=== PATIENT | female | born 1985 | race Caucasian/White ===

== ENCOUNTER 2016-08-23 00:09 | Outpatient (CLI) | payer BC ==
[2016-08-23] MEDS ORDERED: HYDROXYZINE PAMOATE 50 MG CAPSULE ONE (01:41)
[2016-08-23] MEDS ORDERED: HYDROXYZINE PAMOATE 50 MG CAPSULE PO ONE (01:41)
[2016-08-23 01:46] LABS: AMORPHOUS SEDIMENT,URINE TRACE /HPF; APPEARANCE,URINE SLIGHTLY-CLOUDY; BILIRUBIN,URINE NEGATIVE (NEGATIVE); GLUCOSE, URINE NEGATIVE (NEGATIVE); KETONES,URINE NEGATIVE (NEGATIVE); LEUKOCYTE ESTERASE,URINE NEGATIVE (NEGATIVE); NITRITE,URINE NEGATIVE (NEGATIVE); PROTEIN,URINE NEGATIVE (NEGATIVE); URINE SPECIFIC GRAVITY 1.009; UROBILINOGEN,URINE NEGATIVE mg/dL (<2.0)
--- NOTE | 2016-08-23 02:21 | Non Stress Test Report ---
Non Stress Test Datetime Report Generated by CPN: 08/23/2016 02:21 DEMOGRAPHIC EGA NST: 37.6 INDICATION Indication for Study: Ordered by Provider VITAL SIGNS Temperature - NST: 97.9 Pulse - NST: 78 RESP - NST: 14 NBPSYS NST: 96 NBPDIA NST: 54 MONITORING Monitor Explained: Monitor Explained; Test Explained; Patient Verbalized Understanding Time on Monitor: 08/23/2016 00:23 Time off Monitor: 08/23/2016 01:38 NST Duration: 75 NST INTERVENTIONS NST Interventions: PO Hydration Physician Notified NST: Dr Will BABY A: [id number] BABY A Movement : Present Contraction Frequency : irreg FHR Baseline : 135 Accelerations : 15X15 Decelerations : None Variability : Moderate 6-25bpm NST Review: Meets Criteria for Reactive NST NST Review and Verified By : Donald Soliz RN NST Results: Reactive NST REPORT Report Trigger: Send Report
[2016-08-23 03:39] LABS: URINE BARBITURATES SCREEN NEGATIVE; URINE METHADONE SCREEN NEGATIVE; URINE PHENCYCLIDINE SCREEN NEGATIVE
--- NOTE | 2016-08-23 04:47 | L&D General Admission ---
General Admit Datetime Report Generated by CPN: 08/23/2016 04:45 INFORMATION Patient Age: 30 (07/11/2016 04:45:QS system process) EDC: 09/07/2016 00:00 (07/11/2016 04:49:Mahogany Valerio RN) : 2 (07/11/2016 04:49:Yarely Martinez RN) Para: 1 (08/23/2016 02:19:Vidhi Hoover RN) Para: 1 (07/11/2016 17:04:Alyse Brar RN) Para: 1 (07/11/2016 04:49:Yarely Martinez RN) Term: 1 (07/11/2016 04:49:Yarely Martinez RN) : 0 (07/11/2016 04:49:Yarely Martinez RN) Spontaneous Abortions: 0 (07/11/2016 04:49:Yarely Martinez RN) Induced Abortions: 0 (07/11/2016 04:49:Yarely Martinez RN) Livin (07/11/2016 04:49:Yarely Martinez RN) Baby, Number in Womb: 1 (08/23/2016 02:19:Vidhi Hoover RN) Baby, Number in Womb: 1 (07/11/2016 17:04:Alyse Brar RN) CARE Primary Global Engineering [facility] (07/11/2016 04:49:Annel Chambers RN) Month of 1st Visit: 01/2016 (07/11/2016 04:49:Annel Chambers RN) Adequate Care: No (07/11/2016 04:49:Annel Chambers RN) Height (in): 65 (07/11/2016 06:06:QS system process) ALLERGIES Medication Allergy: Yes (07/11/2016 04:49:Yarely Martinez RN) Medication Allergies: morphine/CO/Pruritis (07/11/2016) (07/11/2016 06:05:QS system process) Medication Allergies: morphine-rash (07/11/2016 04:49:Yarely Martinez RN) Latex Allergy: No Latex Allergies (07/11/2016 04:49:Yarely Martinez RN) Food Allergies: None (07/11/2016 04:49:Alyse Brar RN) Environmental Allergies: None (07/11/2016 04:49:Alyse Brar RN) COMMUNICATION Primary Language: Ugandan (07/11/2016 04:49:Annel Chambers RN) Medical Tx Preferred Language: Ugandan (07/11/2016 04:49:Yarely Martinez RN) Ugandan Communication Ability: Speaks Ugandan; Reads Ugandan (07/11/2016 04:49:Yarely Martinez RN) DEMOGRAPHICS Address: [address] [place] [id number] (07/11/2016 04:46:QS system process) Address: [address] [place] [id number] (07/11/2016 04:45:QS system process) Zipcode: [address] (07/11/2016 04:46:QS system process) Zipcode: [address] (07/11/2016 04:45:QS system process) Home (07/11/2016 04:45:QS system process) Work (07/11/2016 04:45:QS system process) SSN: [id number] (07/11/2016 04:45:QS system process) Next of Kin Name: JAMI GO (07/11/2016 04:45:QS system process) Next of Kin (07/11/2016 04:45:QS system process) Next of Kin Relationship: SPO (07/11/2016 04:45:QS system process) Date of : 1985 (07/11/2016 04:45:QS system process) Marital Status: (07/11/2016 04:45:QS system process) Sex: Female (07/11/2016 04:45:QS system process) 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 [id number] (07/11/2016 04:49:Alyse Brar RN) Marijuana: No (07/11/2016 04:49:Alyse Brar RN) Cocaine: No (07/11/2016 04:49:Alyse Brar RN) Other Illicit Drugs: No (07/11/2016 04:49:Alyse Brar RN) VACCINE HISTORY Influenza Vaccine: Yes (07/11/2016 04:49:Annel Chambers RN) Influenza Date: 06/18/2016 (07/11/2016 04:49:Annel Chambers RN) Pneumococcal Vaccine: No (07/11/2016 04:49:Alyse Brar RN) Tetanus Vaccine: Yes (07/11/2016 04:49:Annel Chambers RN) Tetanus Date: 06/18/2016 (07/11/2016 04:49:Annel Chambers RN) Tdap Vaccine: No (07/11/2016 04:49:Alyse Brar RN) Hepatitis B Vaccine: Yes (07/11/2016 04:49:Alyse Brar RN) Feeding Preference: Formula (07/11/2016 04:49:Alyse Brar RN) Benefit of Breast Feed Discussed: N/A (07/11/2016 04:49:Alyse Brar RN) Tubal Ligation: No (07/11/2016 04:49:Alyse Brar RN) Tubal Authorization Signed: N/A (07/11/2016 04:49:Alyse Brar RN) Consent: N/A (07/11/2016 04:49:Alyse Brar RN) Consent Signed: N/A (07/11/2016 04:49:Alyse Brar RN) Plans for Labor and Delivery: Other, Specify (07/11/2016 04:49:Alyse Brar RN) Other Labor and Delivery Plans: 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 (07/11/2016 04:49:Alyse Brar RN) Support Person: Jami Go (07/11/2016 04:49:Alyse Brar RN) Support Person Relationship: (07/11/2016 04:49:Alyse Brar RN) Cultural/Spritual Practice: No (07/11/2016 04:49:Alyse Brar RN) LIVING SITUATION/DISCHARGE PLAN Living Arrangements: House (07/11/2016 04:49:Alyse Brar RN) Adequate Access to:: Electric; Heat; Refrigeration; Plumbing/Running water; Phone; Transportation (07/11/2016 04:49:Alyse Brar RN) WIC Program: No (07/11/2016 04:49:Alyse Brar RN) Discharge Veterinary Laboratory Diagnostician Person: Jami Go (07/11/2016 04:49:Alyse Brar RN) Person to Help after Discharge: Jami Go (07/11/2016 04:49:Alyse Brar RN) Currently Using Commun Resources: No (07/11/2016 04:49:Alyse Brar RN) Outside Agency/Chainstitch Sewing Machine Operator: No (07/11/2016 04:49:Alyse Brar RN) Car Seat for Discharge: Yes (07/11/2016 04:49:Alyse Brar RN) Adoption Requested: No (07/11/2016 04:49:Alyse Brar RN) Pt Contact w/ Post : N/A (07/11/2016 04:49:Alyse Brar RN) LABS Blood Type: O Negative (07/11/2016 04:49:Annel Chambers RN) Rho(G) this : Yes (07/11/2016 04:49:Annel Chambers RN) Date Rho(G) Given: 06/18/2016 (07/11/2016 04:49:Annel Chambers RN) Hemoglobin: 8.7 L (07/11/2016 06:10:QS system process) Hematocrit: 25.9 L (07/11/2016 06:10:QS system process) MCV: 83 (07/11/2016 06:10:QS system process) Group Beta Strep: neg (07/11/2016 04:49:Christiano Soliz RN) Gonorrhea: Negative (07/11/2016 04:49:Annel Chambers RN) Chlamydia: Negative (07/11/2016 04:49:Annel Cahmbers RN) RPR/VDRL: Nonreactive (07/11/2016 04:49:Annel Chambers RN) HIV Exposure Test: Negative (07/11/2016 04:49:Annel Chambers RN) Hepatitis B: Negative (07/11/2016 04:49:Annel Chambers RN) Rubella: Immune (07/11/2016 04:49:Annel Chambers RN) OB/PREVIOUS HISTORY Previous Procedures: Ultrasound (07/11/2016 04:49:Alyse Brar RN) Current Procedures: Ultrasound (07/11/2016 04:49:Alyse Brar RN) History of Previous : No (07/11/2016 04:49:Alyse Brar RN) History of Gestational Diabetes: No (07/11/2016 04:49:Alyse Brar RN) History of PIH: No (07/11/2016 04:49:Alyse Brar RN) History of Incompetent Cervix: No (07/11/2016 04:49:Alyse Brar RN) History of Placenta Previa/Abrup: No (07/11/2016 04:49:Alyse Brar RN) History of Macrosomia: No (07/11/2016 04:49:Alyse Brar RN) History of IUGR: No (07/11/2016 04:49:Alyse Brar RN) History of Hemorrhage: No (07/11/2016 04:49:Alyse Brar RN) History of Loss/Stillborn: No (07/11/2016 04:49:Alyse Brar RN) History of : No (07/11/2016 04:49:Alyse Brar RN) History of D (Rh) Sensitization: No (07/11/2016 04:49:Alyse Brar RN) History Recurrent Loss/Stillborn: No (07/11/2016 04:49:Alyse Brar RN) History Depression/PP Depression: No (07/11/2016 04:49:Alyse Brar RN) History of Uterine Anomaly/TANNER: No (07/11/2016 04:49:Alyse Brar RN) History of Infertility: No (07/11/2016 04:49:Alyse Brar RN) History of ART Treatment: No (07/11/2016 04:49:Alyse Brar RN) History of TANNER: No (07/11/2016 04:49:Alyse Brar RN) Comments Obstetrical History: G1 - 11/24/10 G2 - current - failed 1 hr gtt (07/11/2016 04:49:Annel Chambers RN) MEDICAL HISTORY Med Hx Diabetes: No (07/11/2016 04:49:Alyse Brar RN) Med Hx Hypertension: No (07/11/2016 04:49:Alyse Brar RN) Med Hx Heart Disease: No (07/11/2016 04:49:Alyse Brar RN) Med Hx Autoimmune Disorder: No (07/11/2016 04:49:Alyse Brar RN) Med Hx Kidney Disease/UTI: No (07/11/2016 04:49:Alyse Brar RN) Med Hx Neurologic/Epilepsy: No (07/11/2016 04:49:Alyse Brar RN) Med Hx Psychiatric Disorders: No (07/11/2016 04:49:Alyse Brar RN) Med Hx Hepatitis/Liver Disease: No (07/11/2016 04:49:Alyse Brar RN) Med Hx Varicosities/Phlebitis: No (07/11/2016 04:49:Alyse Brar RN) Med Hx Thyroid Dysfunction: No (07/11/2016 04:49:Alyse Brar RN) Med Hx Trauma/Violence: No (07/11/2016 04:49:Alyse Brar RN) Med Hx Blood Transfusion: No (07/11/2016 04:49:Alyse Brar RN) Med Hx Pulmonary (Asthma,TB): No (07/11/2016 04:49:Alyse Brar RN) Med Hx Breast: No (07/11/2016 04:49:Alyse Brar RN) Med Hx SENIOR DEVOPS ENGINEER Surgery: No (07/11/2016 04:49:Alyse Brar RN) Med Hx Hospitalization/Surgery: Yes (07/11/2016 04:49:Alyse Brar RN) Med Hx Anesthetic Complications: No (07/11/2016 04:49:Alyse Brar RN) Med Hx Abnormal Pap Smear: No (07/11/2016 04:49:Alyse Brar RN) Other Medical Diseases: Yes (07/11/2016 04:49:Alyse Brar RN) Med Hx Significant Family Hx: No (07/11/2016 04:49:Alyse Brar RN) Details of Med/Surg Hx: Hx of Prolactinoma - unable to breastfeed Hospitalized for childbirth (07/11/2016 04:49:Alyse Brar RN) INFECTIOUS HISTORY Inf Hx Gonorrhea: No (07/11/2016 04:49:Alyse Brar RN) Inf Hx Chlamydia: No (07/11/2016 04:49:Alyse Brar RN) Inf Hx Syphilis: No (07/11/2016 04:49:Alyse Brar RN) Inf Hx HIV/AIDS: No (07/11/2016 04:49:Alyse Brar RN) Inf Hx Human Papilloma Virus: No (07/11/2016 04:49:Alyse Brar RN) Inf Hx Pt/Partner Genital Herpes: No (07/11/2016 04:49:Alyse Brar RN) Inf Hx Tuberculosis/Exposure: No (07/11/2016 04:49:Alyse Brar RN) Inf Hx Hepatitis B,C: No (07/11/2016 04:49:Alyse Brar RN) Inf Hx Rash or Viral Illness: No (07/11/2016 04:49:Alyse Brar RN) GENETIC HISTORY Gen Hx Age >=35 at PRIMITIVO: No (07/11/2016 04:49:Alyse Brar RN) Gen Hx Thalassemia: No (07/11/2016 04:49:Alyse Brar RN) Gen Hx Congenital Heart Defect: No (07/11/2016 04:49:Alyse Brar RN) Gen Hx Neural Tube Defect: No (07/11/2016 04:49:Alyse Brar RN) Gen Hx Down's Syndrome: No (07/11/2016 04:49:Alyse Brar RN) Gen Hx Ricardo-Sachs: No (07/11/2016 04:49:Alyse Brar RN) Gen Hx Adia: No (07/11/2016 04:49:Alyse Brar RN) Gen Hx Familial Dysautonomia: No (07/11/2016 04:49:Alyse Brar RN) Gen Hx Sickle Cell Disease/Trait: No (07/11/2016 04:49:Alyse Brar RN) Gen Hx Hemophilia/Blood Disorder: No (07/11/2016 04:49:Alyse Brar RN) Gen Hx Muscular Dystrophy: No (07/11/2016 04:49:Alyse Brar RN) Gen Hx Cystic Fibrosis: No (07/11/2016 04:49:Alyse Brar RN) Gen Hx Huntingtons Chorea: No (07/11/2016 04:49:Alyse Brar RN) Gen Hx Mental Retardation/Autism: No (07/11/2016 04:49:Alyse Brar RN) Gen Hx Tested for Fragile X: No (07/11/2016 04:49:Alyse Brar RN) Gen Hx Other Inher/Chromosomal: No (07/11/2016 04:49:Alyse Brar RN) Gen Hx Maternal Metabolic DO: No (07/11/2016 04:49:Alyse Brar RN) Gen Hx Pt Father or FOB Defect: No (07/11/2016 04:49:Alyse Brar RN) Gen Hx Other Genetic History: No (07/11/2016 04:49:Alyse Brar RN) Gen Hx Drugs/Meds since LMP: No (07/11/2016 04:49:Alyse Brar RN)
--- NOTE | 2016-08-23 04:47 | L&D Discharge Summary ---
OB Discharge Summary Datetime Report Generated by CPN: 08/23/2016 04:45 DISCHARGE DIAGNOSIS Diagnosis/Symptoms: False Labor Gestation: 37.5 Number of Babies in Womb: 1 Parity: 1 DIET/ACTIVITY/RESTRICTIONS Diet: Regular Diet Restrictions: Clear liquid diet, advance as tolerated Activity: Normal Activity Activity Restrictions: No Exercising; Minimize Walking TEACHING/INSTRUCTIONS/REFERRALS Instructions Given To: pt Instructions Understood: Patient Verbalized Understanding Referrals: None Educational Materials- Other: Kick Counts Dehydration DISCHARGE INFORMATION Discharged AMA: No Physician Notified of Disch AMA: Dr Will Discharge Date/Time: 08/23/2016 02:00 Discharged To: Home Discharge Provider Name: Dr Will Accompanied By: Discharge Method: Ambulatory Condition: Stable FOLLOW UP INFORMATION Follow Up With: [facility] Follow Up On: As Scheduled Follow Up Phone Number: [facility] -
--- NOTE | 2016-08-23 04:47 | L&D Admission Assessment ---
LD ADM ASMT Datetime Report Generated by CPN: 08/23/2016 04:45 PATIENT ASSESSMENT Assessment Type: Admission Assessment (08/23/2016 00:28:Vidhi Ledgerwood, RN) WEIGHT Weight (lb): 187 (08/23/2016 00:53:QS system process) Weight (kg): 85.0 (08/23/2016 00:53:QS system process) BMI: 31.1 (08/23/2016 00:53:QS system process) PAIN Pain Scale: 2 (08/23/2016 00:28:Vidhi Ledgerwood, RN) Pain Presence: Intermittent (08/23/2016 00:28:Vidhi Ledgerwood, RN) Pain Type: Contraction (08/23/2016 00:28:Vidhi Ledgerwood, RN) Pain Location: Abdomen (08/23/2016 00:28:Vidhi Ledgerwood, RN) Pain Related to Contraction: Unsure (08/23/2016 00:28:Vidhi Ledgerwood, RN) CONTRACTIONS Frequency (min): irr (08/23/2016 01:20:Vidhi Ledgerwood, RN) Frequency (min): none (08/23/2016 00:50:Vidhi Ledgerwood, RN) Duration (sec): 60-90 (08/23/2016 01:20:Vidhi Ledgerwood, RN) Quality: Mild (08/23/2016 01:20:Vidhi Ledgerwood, RN) Pattern: Normal: <= 5 Contractions in 10 Minutes (08/23/2016 01:20:Vidhi Ledgerwood, RN) Resting Tone [place]: Relaxed (08/23/2016 01:20:Vidhi Hoover RN) Resting Tone [place]: Relaxed (08/23/2016 00:50:Vidhi Hoover RN) Contraction Comments: occasional contraction with uteral irritability (08/23/2016 01:20:Vidhi Hoover RN) Contraction Comments: pt's abdomen feels soft upon palpation during of pt's feeling of contractions. (08/23/2016 00:50:Vidhi Hoover RN) VAGINAL EXAM Dilatation (cm): 0.5 (08/23/2016 00:24:Vidhi Hoover RN) NEURO Level of Consciousness: Fully Conscious (08/23/2016 00:28:Vidhi Hoover RN) DTR's/Clonus: DTRs 2+; No Clonus (08/23/2016 00:28:Vidhi Hoover RN) Headache: Denies (08/23/2016 00:28:Vidhi Hoover RN) Dizziness: No (08/23/2016 00:28:Vidhi Hoover RN) Blurred Vision: No (08/23/2016 00:28:Vidhi Ledgerwood, RN) Extremity Numbness/Tingling : None (08/23/2016 00:28:Vidhi Ledgerwood, RN) Extremity Movement: Full Range of Motion (08/23/2016 00:28:Vidhi Ledgerwood, RN) CARDIOVASCULAR Nailbeds: [place] (08/23/2016 00:28:Vidhi Ledgerwood, RN) Capillary Refill: Less than 3 Seconds (08/23/2016 00:28:Vidhi Ledgerwood, RN) Facial Edema: None (08/23/2016 00:28:Vidhi Ledgerwood, RN) Zoltan's Sign Left Leg: Negative (08/23/2016 00:28:Vidhi Ledgerwood, RN) Zoltan's Sign Right Leg: Negative (08/23/2016 00:28:Vidhi Ledgerwood, RN) RESPIRATORY Respiratory Effort: Unlabored; Regular Rhythm; Equal Expansion (08/23/2016 00:28:Vidhibrannon Mcarthurgerwood, RN) Breath Sounds, Left: Clear and Equal (08/23/2016 00:28:Vidhi Hoover RN) Breath Sounds, Right: Clear and Equal (08/23/2016 00:28:Vidhi Hoover RN) Cough Productivity: None (08/23/2016 00:28:Vidhi Hoover RN) GASTROINTESTINAL Nausea/Vomiting: Denies (08/23/2016 00:28:Vidhi Hoover RN) Bowel Sounds: Normoactive; All Quadrants (08/23/2016 00:28:Vidhi Hoover RN) RUQ Epigastric Pain: Denies (08/23/2016 00:28:Vidhi Hoovre RN) Bowel Patterns: Soft, Formed Stool (08/23/2016 00:28:Vidhi Hoover RN) Hemorrhoids: None (08/23/2016 00:28:Vidhi Hoover RN) Diet Type: Regular diet (08/23/2016 00:28:Vidhi Hoover RN) Last Meal: 08/22/2016 19:00 (08/23/2016 00:28:Vidhi Hoover RN) GENITOURINARY Bladder: Nondistended (08/23/2016 00:28:Vidhi Ledgerwood, RN) Frequency of Urination: No (08/23/2016 00:28:Vidhi Ledgerwood, RN) Urination Burning: No (08/23/2016 00:28:[place], RN) CVA Tenderness: No (08/23/2016 00:28:[place], RN) Vaginal Bleeding: None (08/23/2016 00:28:[facility] Vaginal Discharge Color: N/A (08/23/2016 00:28:Vidhi Ledgerwood, RN) INTEGUMENTARY Skin Color: Normal for Race (08/23/2016 00:28:Vidhi Ledgerwood, ) Skin Temperature: [facility]23[facility]2016 [facility] Skin Moisture: Dry (08/23/2016 00:28:[facility]) TIFFANY SKIN ASSESSMENT Tiffany Scale Sensory Perception: No Impairment- Responds to verbal commands. Has no sensory deficit which would limit ability to feel or voice pain or discomfort (08/23/2016 00:28:Vidhi Hoover RN) Tiffany Scale Moisture: Rarely Moist- Skin is usually dry. Linen only requires changing at routine intervals (08/23/2016 00:28:Vidhi Hoover RN) Tiffany Scale Activity: Walks Frequently- Walks outside the room at least twice a day and inside room at least every 2 hours during the day. (08/23/2016 00:28:Vidhi Hoover RN) Tiffany Scale Mobility: No Limitations- Makes major and frequent changes in position without assistance (08/23/2016 00:28:Vidhi Hoover RN) Tiffany Scale Nutrition: Excellent- Eats most of every meal. Never refuses a meal. Usually eats a total of 4 or more servings of meat and dairy products. Occasionally eats between meals. Does not require supplementation (08/23/2016 00:28:Vidhi Hoover RN) Tiffany Scale Friction and Shear: No Apparent Problem- Moves in bed and in chair independently and has sufficient muscle strength to lift up completely during move. Maintains good position in bed or chair at all times (08/23/2016 00:28:Vidhi Hoover RN) Tiffany Scale Total: 23 (08/23/2016 00:28:QS system process) Tiffany Scale Risk: No Risk of Pressure Ulcer Noted at this Time (08/23/2016 00:28:QS system process) SUPPORT Family Support: Significant Other supportive, at bedside frequently (08/23/2016 00:28:Vidhi Hoover RN) Emotional State: Calm/Relaxed (08/23/2016 00:28:Vidhi Hoover RN) SAFETY [place] Within Reach: Yes (08/23/2016 00:28:Vidhi Hoover RN) Side Rails Up: Yes (08/23/2016 00:28:Vidhi Hoover RN) Bed Wheels Locked: Yes (08/23/2016 00:28:Vidhi Hoover RN) Arm Bands Present: Yes (08/23/2016 00:28:Vidhi Hoover RN) FALL SCREEN Fall Risk History of Falling: (0) No (08/23/2016 00:28:Vidhi Hoover RN) Fall Risk Secondary Diagnosis: (0) No (08/23/2016 00:28:Vidhi Hoover RN) Fall Risk Ambulatory Aid: (0) None/Bedrest/Wheelchair/Nurse Assist (08/23/2016 00:28:Vidhi Hoover RN) Fall Risk IV Therapy: (0) No (08/23/2016 00:28:Vidhi Hoover RN) Fall Risk Gait: (0) Normal/Bedrest/Immobile (08/23/2016 00:28:Vidhi Hoover RN) Fall Risk Mental Status: (0) Oriented to Own Ability (08/23/2016 00:28:Vidhi Hoover RN) Fall Risk Score: 0 (08/23/2016 00:28:QS system process) Fall Risk Score Definition: No Risk: No action required (08/23/2016 00:28:QS system process) RECENT TRAVEL/INFECTIOUS DISEASE Pt/Family Education: Handwashing Hygiene (08/23/2016 00:28:Vidhi Hoover RN) BABY A FHR Baseline Rate (bpm) Baby A: 135 (08/23/2016 01:20:Vidhi Hoover RN) FHR Baseline Rate (bpm) Baby A: 135 (08/23/2016 00:50:Vidhi Hoover RN) Variability Baby A: Moderate 6-25 bpm (08/23/2016 01:20:Vidhi Hoover RN) Variability Baby A: Moderate 6-25 bpm (08/23/2016 00:50:Vidhi Hoover RN) Accelerations Baby A: 15X15 (08/23/2016 01:20:Vidhi Hoover RN) Accelerations Baby A: 15X15 (08/23/2016 00:50:Vidhi Hoover RN) Decelerations Baby A: None (08/23/2016 01:20:Vidhi Hoover RN) Decelerations Baby A: None (08/23/2016 00:50:Vidhi Hoover RN) ADDITIONAL COMMENTS Assessment Flag: Admission Assessment (08/23/2016 00:28:QS system process)
--- NOTE | 2016-08-23 04:47 | L&D Current Admission ---
Current Admit Datetime Report Generated by CPN: 08/23/2016 04:45 ADMISSION INFORMATION Current Admit Date/Time: 07/11/2016 07:20 (07/11/2016 05:00:Alyse Brar RN) Reason for Admission: Observation (07/11/2016 05:00:Alyse Brar RN) Other Reason for Admission: severe N/V/D (07/11/2016 05:00:Alyse Brar RN) Chief Complaint: Contractions (08/23/2016 00:28:Vidhi Hoover RN) Chief Complaint: Uterine Cramping; Nausea; Vomiting; Other (Annotations: 31+5 weeks gestation arrived on unit with complaints of nausea/vomitting/diarrhea for three days. Patient states she has had at least 2-4 episodes of vomitting daily, and constant diarrhea last night.) (07/11/2016 05:00:Yarely Martinez RN) Medications During : Vitamin (07/11/2016 05:00:Alyse Brar RN) EGA per Dates: 31.5 (07/11/2016 05:00:QS system process) Method of Arrival: Wheelchair (07/11/2016 05:00:Alyse Brar RN) Admitted From: Home (07/11/2016 05:00:Alyse Brar RN) Reason for Induction: Not Applicable (07/11/2016 05:00:Alyse Brar RN) Records Available: Yes (07/11/2016 05:00:Alyse Brar RN) General Admission Information: Reviewed; Updated; Confirmed (07/11/2016 05:00:Alyse Brar RN) General Admission Reviewed By: Omar Brar RN (07/11/2016 05:00:Alyse Brar RN) BELONGINGS/ADVANCED DIRECTIVES Valuables/Personal Effects: None (07/11/2016 05:00:Alyse Brar RN) Other Belongings: See belongings consent (07/11/2016 05:00:Alyse Brar RN) Disposition of Belongings: Kept with Patient (07/11/2016 05:00:Alyse Brar RN) Advance Direct for Healthcare: No, and Wants No Information (07/11/2016 05:00:Alyse Brar RN) Durable Power of Lead Miner Blasting: No (07/11/2016 05:00:Alyse Brar RN) Living Will: No (07/11/2016 05:00:Alyse Brar RN) Organ Donor: No (07/11/2016 05:00:Alyse Brar RN) Pt Rights Information Given: Yes (07/11/2016 05:00:Alyse Brar RN) Pt Understands Pt Rights: Yes (07/11/2016 05:00:MARIAN Payne LEARNING ASSESSMENT Knowledge Level: Understands L_D Process; Understands Care Activities; Had Pre-Hospital Education; Understands Diagnosis (07/11/2016 05:00:Alyse Brar RN) Barriers to Learning: Emotional State (07/11/2016 05:00:Alyse Brar RN) Learning Readiness: Not Interested (07/11/2016 05:00:Alyse Brar RN) Learns Best By: 1 to 1 Instruction; Reading; Demonstration (07/11/2016 05:00:Alyse Brar RN) Learning Needs: Pain Management; Symptoms to Report; Treatment Plan; Medication; Diagnosis; Nutrition; Equipment (07/11/2016 05:00:Alyse Brar RN) DOMESTIC VIOLANCE SCREENING Dom Viol Threatened/Hurt: No (07/11/2016 05:00:Alyse Brar RN) Hx of Abuse/Neglect past 2yrs: No (07/11/2016 05:00:Alyse Brar RN) Feel Unsafe Going Home: No (07/11/2016 05:00:Alyse Brar RN) Addt'l Observ Indicating Abuse: No (07/11/2016 05:00:Alyse Brar RN) Reason Unable to Complete Screen: N/A, Screen Completed (07/11/2016 05:00:Alyse Brar RN) Considered Personal Harm/Suicide: No (07/11/2016 05:00:Alyse Brar RN) NUTRITIONAL/FUNCTIONAL SCREENING Problem with Appetite >5 Days: No (07/11/2016 05:00:Alyse Brar RN) Chew/Swallow Difficulties: No (07/11/2016 05:00:Alyse Brar RN) Inappropriate Wt Gain/Loss: No (07/11/2016 05:00:Alyse Brar RN) Presence Skin Breakdown/Ulcer: No (07/11/2016 05:00:Alyse Brar RN) Special Diet: No (07/11/2016 05:00:Alyse Brar RN) Pt Requests Rehabilitation Coordinator Visit: No (07/11/2016 05:00:Alyse Brar RN) Hx of Any of the Following?: N/A (07/11/2016 05:00:Alyse Brar RN) New Diagnosis of: N/A (07/11/2016 05:00:Alyse Brar RN) Requires Assist w/Ambulation: No (07/11/2016 05:00:Alyse Brar RN) Uses Assist Device to Ambulate: No (07/11/2016 05:00:Alyse Brar RN) Pt Requires Help w/ADL's: No (07/11/2016 05:00:Alyse Brar RN)
--- NOTE | 2016-08-23 04:47 | Antepartum Discharge Summary ---
Antepartum DC Datetime Report Generated by CPN: 08/23/2016 04:45 DIET/ACTIVITY/RESTRICTIONS Diet: Regular (08/23/2016 02:19:Vidhi Ledgerwood, RN) Activity: Normal Activity (08/23/2016 02:19:Vidhi Ledgerwood, RN) TEACHING/INSTRUCTIONS/REFERRALS Instructions Given To: pt (08/23/2016 02:19:Vidhi Ledgerwood, RN) Instructions Understood: Patient Verbalized Understanding (08/23/2016 02:19:Vidhi Ledgerwood, RN) Referrals: None (08/23/2016 02:19:Vidhi Hoover RN) Educational Materials- Other: Kick Counts Dehydration (08/23/2016 02:19:Vidhi Hoover RN) DISCHARGE INFORMATION Discharged AMA: No (08/23/2016 02:19:Vidhi Hoover RN) Physician Notified of Disch AMA: Dr Solis (08/23/2016 02:19:Vidhi Hoover RN) Discharge Date/Time: 08/23/2016 02:00 (08/23/2016 02:19:Vidhi Hoover RN) Discharged To: Home (08/23/2016 02:19:Vidhi Hoover RN) Discharge Provider Name: Dr Solis (08/23/2016 02:19:Vidhi Hoover RN) Accompanied By: (08/23/2016 02:19:Vidhi Hoover RN) Discharge Method: Ambulatory (08/23/2016 02:19:Vidhi Hoover RN) Condition: Stable (08/23/2016 02:19:Vidhi Hoover RN) FOLLOW UP INFORMATION Follow Up With: [facility] (08/23/2016 02:19:Vidhi Hoover RN) Follow Up On: As Scheduled (08/23/2016 02:19:Vidhi Hoover RN) Follow Up Phone Number: [facility] - (08/23/2016 02:19:Vidhi Hoover RN)
--- NOTE | 2016-08-23 04:47 | L&D Flow Sheet ---
LD Flowsheet Datetime Report Generated by CPN: 08/23/2016 04:45 Datetime: 08/23/2016 01:57 Teaching Instructional Method: Demo; Verbal; Patient Instructed (Vidhi Ledgerwood, RN) Plan of Care: and Dehydration Kick Counts (Vidhi Ledgerwood, RN) Datetime: 08/23/2016 01:56 Medications Antiemetics/Antacids: Vistaril (mg) @ (Annotations: 50) (Vidhi Ledgerwood, RN) Datetime: 08/23/2016 01:52 Communication Comments: Dr Will was called about the labs results with the finding of bacteria in the urine. No orders received. (Vidhi Ledgerwood, RN) Datetime: 08/23/2016 01:36 Patient Care Comments: pt is sitting up on the bed, pt states that bed is uncomfortable and she needs a minute to sit. (Vidhi Lyubovdonna, RN) Datetime: 08/23/2016 01:26 Communication Communication: Provider Orders Received; Call/Page Placed to Provider (Vidhi Hoover, HUSSAIN) Communication Comments: Dr Solis was notified via phone of pt's complaints, status, VE,FHR s. D/C order received with 50 mg PO NOW One and Fluid hydration. (Vidhi Hoover, RN) Datetime: 08/23/2016 01:20 Uterine Activity Monitor Mode: External; Palpation (Vidhi Ledgerwood, RN) Frequency (min): irr (Vidhi Ledgerwood, RN) Quality: Mild (Vidhi Ledgerwood, RN) Duration (sec): 60-90 (Vidhi Ledgerwood, RN) Duration Criteria: Less than Two 120 Second Contractions (Vidhi Ledgerwood, RN) Pattern: Normal: <= 5 Contractions in 10 Minutes (Vidhi Ledgerwood, RN) Resting Tone (Palpate): Relaxed (Vidhi Ledgerwood, RN) Contraction Comments: occasional contraction with uteral irritability (Vidhi Ledgerwood, RN) Assessment A Monitor Mode: External US (Vidhi Ledgerwood, RN) FHR Baseline Rate : 135 (Vidhi Ledgerwood, RN) FHR Baseline Changes: No Baseline Change (Vidhi Ledgerwood, RN) Variability: Moderate 6-25 bpm (Vidhi Ledgerwood, RN) Accelerations: 15X15 (Vidhi Ledgerwood, RN) Decelerations: None (Vidhi Ledgerwood, RN) Datetime: 08/23/2016 01:16 Vital Signs NBP Sys/Ila/Mean (mmHg): 96 (QS system process) : 54 (QS system process) : 69 (QS system process) Pulse: 78 (QS system process) Respirations: 14 (Vidhi Ledgerwood, RN) LaborFlag: Antepartum (QS system process) Datetime: 08/23/2016 01:05 Comments: pt is sitting up on bed, getting ready to go to BR. (Vidhi Lyubvogerwood, RN) Datetime: 08/23/2016 00:50 Uterine Activity Monitor Mode: External; Palpation (Vidhi Hoover, RN) Frequency (min): none (Vidhi Lyubovgerwood, RN) Resting Tone (Palpate): Relaxed (Vidhi Perezwood, RN) Contraction Comments: pt's abdomen feels soft upon palpation during of pt's feeling of contractions. (Vidhi Perezwood, RN) Assessment A Monitor Mode: External US (Vidhi Hoover, RN) FHR Baseline Rate : 135 (Vidhi Mcarthurgerwood, RN) FHR Baseline Changes: No Baseline Change (Vidhi Ledgerwood, RN) Variability: Moderate 6-25 bpm (Vidhi Ledgerwood, RN) Accelerations: 15X15 (Vidhi Ledgerwood, RN) Decelerations: None (Vidhi Ledgerwood, RN) Datetime: 08/23/2016 00:46 Vital Signs NBP Sys/Ila/Mean (mmHg): 100 (QS system process) : 58 (QS system process) : 74 (QS system process) Pulse: 85 (QS system process) Respirations: 14 (Vidhi Hoover RN) Patient Care Comments: pt is unable to void. Pt received instructions to drink water. (Vidhi Ledgerwood, RN) LaborFlag: Antepartum (QS system process) Datetime: 08/23/2016 00:39 I/O Interventions: Up to BR (Vidhi Ledgerwood, RN) Communication Communication: RN at Bedside (Vidhi Ledgerwood, RN) Datetime: 08/23/2016 00:28 Pain Pain Scale: 2 (Vidhi Ledgerwood, RN) Pain Presence: Intermittent (Vidhi Ledgerwood, RN) Pain Type: Contraction (Vidhi Ledgerwood, RN) Pain Location: Abdomen (Vidhi Ledgerwood, RN) Pain Relief Measures: Comfort Measures ([facility], RN) Pain Coping: Talking Through Contractions (Vidhi Ledgerwood, RN) Vaginal Bleeding: None (Vidhi Ledgerwood, RN) Maternal Assessment Level of Consciousness: Fully Conscious ([facility], RN) DTR's/Clonus: DTRs 2+; No Clonus (Vidhi Ledgerwood, RN) Headache: Denies (Vidhi Ledgerwood, RN) Breath Sounds, Left: Clear and Equal (Vidhi Ledgerwood, RN) Breath Sounds, Right: Clear and Equal (Vidhi Ledgerwood, RN) Nausea/Vomiting: Denies (Vidhi Ledgerwood, RN) RUQ Epigastric Pain: Denies (Vidhi Ledgerwood, RN) Teaching Instructional Method: Demo; Verbal; Patient Instructed (Vidhi Hoover RN) Plan of Care: Plan of Care Discussed (Vidhi Hoover RN) Unit Routine: [place] to Room; Call Hernandez; Bed; Handwashing; Monitoring; Safety/Fall Risk Prevention; Bathroom Privileges (Vidhi Hoover RN) LaborFlag: Antepartum (QS system process) Datetime: 08/23/2016 00:24 Vaginal Exam Dilatation (cm): 0.5 (Vidhi Hoover RN) Exam by: Lauri Hoover RN (Vidhi Hoover RN) Vaginal Exam Comments: thick and high (Vidhi Hoover RN) Patient Care Patient Position/Activity: Right Tilt (Vidhi Hoover RN) I/O Interventions: Clear Liquids Given (Vidhi Hoover RN)
== END 2016-08-23 02:00 | disposition home or self-care (01) ==
LOC: LC 00:09
PROVIDERS: ATTEND Obstetrics & Gynecology
PROC: 4A1HXCZ Monitoring of Products of Conception, Cardiac Rate, External Approach (ICD-10-PCS; principal; 2016-08-23)
DX: O47.1 False labor at or after 37 completed weeks of gestation (principal); Z3A.37 37 weeks gestation of pregnancy
CPT/HCPCS: 59025; 81001; G0479; 80307

== ENCOUNTER 2016-09-08 10:38 | Outpatient (CLI) | payer BC ==
--- NOTE | 2016-09-08 11:13 | Non Stress Test Report ---
Non Stress Test Datetime Report Generated by CPN: 09/08/2016 11:13 DEMOGRAPHIC EGA NST: 40.1 INDICATION Indication for Study: Ordered by Provider MONITORING Monitor Explained: Monitor Explained; Test Explained; Patient Verbalized Understanding Time on Monitor: 09/08/2016 10:51 Time off Monitor: 09/08/2016 11:13 NST Duration: 22 NST INTERVENTIONS NST Interventions: PO Hydration; Reposition Patient Physician Notified NST: HAMPT[place] BABY A: [id number] BABY A Movement : Present Contraction Frequency : none FHR Baseline : 125 Accelerations : 15X15 Decelerations : None Variability : Moderate 6-25bpm NST Review: Meets Criteria for Reactive NST NST Review and Verified By : Jie Díaz RN NST Results: Reactive NST COMMENTS NST Comments: See flowsheet for VS NST REPORT Report Trigger: Send Report
== END 2016-09-08 11:17 | disposition home or self-care (01) ==
LOC: LC 10:38
PROVIDERS: ATTEND Obstetrics & Gynecology
PROC: 4A1HXCZ Monitoring of Products of Conception, Cardiac Rate, External Approach (ICD-10-PCS; principal; 2016-09-08)
DX: O48.0 Post-term pregnancy (principal); Z3A.40 40 weeks gestation of pregnancy
CPT/HCPCS: 59025

== ENCOUNTER 2016-09-09 00:53 | Outpatient (CLI) | payer BC ==
[2016-09-09 01:23] LABS: APPEARANCE,URINE CLEAR; BILIRUBIN,URINE NEGATIVE (NEGATIVE); GLUCOSE, URINE NEGATIVE (NEGATIVE); KETONES,URINE NEGATIVE (NEGATIVE); LEUKOCYTE ESTERASE,URINE NEGATIVE (NEGATIVE); NITRITE,URINE NEGATIVE (NEGATIVE); PROTEIN,URINE NEGATIVE (NEGATIVE); URINE SPECIFIC GRAVITY 1.002; UROBILINOGEN,URINE NEGATIVE mg/dL (<2.0)
[2016-09-09 02:20] LABS: URINE BARBITURATES SCREEN NEGATIVE; URINE METHADONE SCREEN NEGATIVE; URINE PHENCYCLIDINE SCREEN NEGATIVE
[2016-09-09] MEDS ORDERED: HYDROXYZINE PAMOATE 50 MG CAPSULE PO ONE (03:01)
[2016-09-09] MEDS ORDERED: HYDROXYZINE PAMOATE 50 MG CAPSULE ONE (03:04)
--- NOTE | 2016-09-09 04:48 | L&D General Admission ---
General Admit Datetime Report Generated by CPN: 09/09/2016 04:45 INFORMATION Para: 1 (09/09/2016 03:20:Freida Lilly, RN) Baby, Number in Womb: 1 (09/09/2016 03:20:Freida Lilly, RN) ALLERGIES Medication Allergies: morphine/AK/Pruritis (09/09/2016) (09/09/2016 01:12:QS system process) Medication Allergies: morphine/AK/Pruritis (09/08/2016) (09/08/2016 10:56:QS system process)
--- NOTE | 2016-09-09 04:48 | L&D Discharge Summary ---
OB Discharge Summary Datetime Report Generated by CPN: 09/09/2016 04:45 DISCHARGE DIAGNOSIS Diagnosis/Symptoms: False Labor Diagnoses/Symptoms Other: Reactive NST Gestation: 40.1 Number of Babies in Womb: 1 Parity: 1 DIET/ACTIVITY/RESTRICTIONS Diet: Regular Diet Restrictions: Clear liquid diet, advance as tolerated Activity: Normal Activity Activity Restrictions: No Exercising; Minimize Walking TEACHING/INSTRUCTIONS/REFERRALS Instructions Given To: Patient and spouse Instructions Understood: Patient Verbalized Understanding; Support Person Verbalized Understanding Referrals: None Educational Materials- Other: Term DISCHARGE INFORMATION Discharged AMA: No Physician Notified of Disch AMA: Dr Will Discharge Date/Time: 09/09/2016 03:16 Discharged To: Home Discharge Provider Name: Clary Currie Accompanied By: Spouse Discharge Method: Wheelchair Condition: Stable FOLLOW UP INFORMATION Follow Up With: [facility] Follow Up On: As Scheduled Follow Up Phone Number: [facility] - Comments: Discussed term and signs and symptoms of when to return to office or hospital with patient and spouse. Both patient and spouse verbalized understanding. Patient discharged home due to false labor via wheelchair in stable condition. GENERAL INSTR-CALL PROVIDER IF: Contractions: Contractions or cramps become more frequent than 8 in one hour or 4 in 20 minutes; Regular painful contractions every 5 minutes or less for one hour. Time your contractions from the beginning of one to the beginning of the next Pressure: Pressure in your vagina or lower abdomen that may feel like the baby is pushing down Period Like Cramps: Period-like cramps or low dull backache that may come and go Cramps/Diarrhea: Abdominal cramps that may be accompanied by diarrhea Gush of Fluid/Blood: Gush of fluid or blood from your vagina (it is normal to have spotting after vaginal exam or intercourse) Vaginal Discharge: Change in the type or amount of vaginal discharge Decreased Movement: Your baby is not moving as much as usual- 4 movements in 1 hour after drinking and resting on side Temperature: Temperature greater than 100.0(F) orally
--- NOTE | 2016-09-09 04:48 | Antepartum Discharge Summary ---
Antepartum DC Datetime Report Generated by CPN: 09/09/2016 04:45 DIET/ACTIVITY/RESTRICTIONS Diet: Regular (09/09/2016 03:20:Freida Lilly, RN) Diet: Regular (09/08/2016 11:19:Lior Bre, RN) Activity: Normal Activity (09/09/2016 03:20:Freida Lilly, RN) Activity: Normal Activity (09/08/2016 11:19:Lior Bre, RN) TEACHING/INSTRUCTIONS/REFERRALS Instructions Given To: Patient and spouse (09/09/2016 03:20:Freida Lilly RN) Instructions Given To: pt (09/08/2016 11:19:Lior Díaz RN) Instructions Understood: Patient Verbalized Understanding; Support Person Verbalized Understanding (09/09/2016 03:20:Freida Lilly RN) Instructions Understood: Patient Verbalized Understanding; Support Person Verbalized Understanding (09/08/2016 11:19:Lior Díaz RN) Referrals: None (09/09/2016 03:20:Freida Lilly RN) Referrals: None (09/08/2016 11:19:Lior Díaz RN) Educational Materials- Other: Term (09/09/2016 03:20:Freida Lilly RN) Educational Materials- Other: Early Labor signs Kick Counts (09/08/2016 11:19:Lior Díaz RN) DISCHARGE INFORMATION Discharged AMA: No (09/09/2016 03:20:Freida Lilly RN) Discharged AMA: No (09/08/2016 11:19:Lior Díaz RN) Discharge Date/Time: 09/09/2016 03:16 (09/09/2016 03:20:Freida Lilly RN) Discharge Date/Time: 09/08/2016 11:17 (09/08/2016 11:19:Lior Díaz RN) Discharged To: Home (09/09/2016 03:20:Freida Lilly RN) Discharged To: Home (09/08/2016 11:19:Lior Díaz RN) Discharge Provider Name: Dr. Currie (09/09/2016 03:20:Freida Lilly RN) Discharge Provider Name: CURRIE (09/08/2016 11:19:Lior Díaz RN) Accompanied By: Spouse (09/09/2016 03:20:Freida Lilly RN) Accompanied By: (09/08/2016 11:19:Lior Díaz RN) Discharge Method: Wheelchair (09/09/2016 03:20:Freida Lilly RN) Discharge Method: Ambulatory (09/08/2016 11:19:Lior Díaz RN) Condition: Stable (09/09/2016 03:20:Freida Lilly RN) Condition: Stable (09/08/2016 11:19:Lior Díaz RN) FOLLOW UP INFORMATION Follow Up With: [facility] (09/09/2016 03:20:Freida Lilly RN) Follow Up With: [facility] (09/08/2016 11:19:Lior Díaz RN) Follow Up On: As Scheduled (09/09/2016 03:20:Freida Llily RN) Follow Up On: As Scheduled (09/08/2016 11:19:Lior Díaz RN) Follow Up Phone Number: [facility] - (09/09/2016 03:20:Freida Lilly RN) Follow Up Phone Number: [facility] - (09/08/2016 11:19:Lior Díaz RN) Comments: Discussed term and signs and symptoms of when to return to office or hospital with patient and spouse. Both patient and spouse verbalized understanding. Patient discharged home due to false labor via wheelchair in stable condition. (09/09/2016 03:20:Freida Lilly RN) Comments: Pt agrees with discharge, service station attendant agrees with discharge for reactive NST. Pt ambulates without difficulty, no distress noted. Understands instructions, when to return to hospital for evaluation, s/s to report, to keep scheduled appointments. (09/08/2016 11:19:Lior Díaz RN) GENERAL INSTR-CALL PROVIDER IF: Contractions: Contractions or cramps become more frequent than 8 in one hour or 4 in 20 minutes; Regular painful contractions every 5 minutes or less for one hour. Time your contractions from the beginning of one to the beginning of the next (09/09/2016 03:20:Freida Lilly RN) Contractions: Contractions or cramps become more frequent than 8 in one hour or 4 in 20 minutes; Regular painful contractions every 5 minutes or less for one hour. Time your contractions from the beginning of one to the beginning of the next (09/08/2016 11:19:Lior Díaz RN) Pressure: Pressure in your vagina or lower abdomen that may feel like the baby is pushing down (09/09/2016 03:20:Freida Lilly RN) Pressure: Pressure in your vagina or lower abdomen that may feel like the baby is pushing down (09/08/2016 11:19:Lior Díaz RN) Period Like Cramps: Period-like cramps or low dull backache that may come and go (09/09/2016 03:20:Freida Lilly RN) Period Like Cramps: Period-like cramps or low dull backache that may come and go (09/08/2016 11:19:Lior Díaz RN) Cramps/Diarrhea: Abdominal cramps that may be accompanied by diarrhea (09/09/2016 03:20:Freida Lilly RN) Cramps/Diarrhea: Abdominal cramps that may be accompanied by diarrhea (09/08/2016 11:19:Lior Díaz RN) Gush of Fluid/Blood: Gush of fluid or blood from your vagina (it is normal to have spotting after vaginal exam or intercourse) (09/09/2016 03:20:Freida Lilly RN) Gush of Fluid/Blood: Gush of fluid or blood from your vagina (it is normal to have spotting after vaginal exam or intercourse) (09/08/2016 11:19:Lior Díaz RN) Vaginal Discharge: Change in the type or amount of vaginal discharge (09/09/2016 03:20:Freida Lilly RN) Vaginal Discharge: Change in the type or amount of vaginal discharge (09/08/2016 11:19:Lior Díaz RN) Decreased Movement: Your baby is not moving as much as usual- 4 movements in 1 hour after drinking and resting on side (09/09/2016 03:20:Freida Lilly RN) Decreased Movement: Your baby is not moving as much as usual- 4 movements in 1 hour after drinking and resting on side (09/08/2016 11:19:Lior Díaz RN) Temperature: Temperature greater than 100.0(F) orally (09/09/2016 03:20:Freida Lilly RN) Temperature: Temperature greater than 100.0(F) orally (09/08/2016 11:19:Lior Díaz RN) Hypertension Signs/Symptoms: Severe headache which is not relieved 30 minutes after taking Tylenol(Acetaminophen); Blurry vision or spots before your eyes; Severe heartburn or pain on the upper right side of your abdomen that is not relieved by an antacid; Increased swelling in your face, hands or feet (09/09/2016 03:20:Freida Lilly RN) Hypertension Signs/Symptoms: Severe headache which is not relieved 30 minutes after taking Tylenol(Acetaminophen); Blurry vision or spots before your eyes; Severe heartburn or pain on the upper right side of your abdomen that is not relieved by an antacid; Increased swelling in your face, hands or feet (09/08/2016 11:19:Lior Díaz RN) Urinary Output: Decreased urinary output or dark colored urine (09/09/2016 03:20:Freida Lilly RN) Urinary Output: Decreased urinary output or dark colored urine (09/08/2016 11:19:Lior Díaz RN) ADDITIONAL INSTRUCTIONS N/V [place]/Crackers: Keep dry toast/crackers with you to [facility] on (09/08/2016 11:19:Lior Díaz RN) N/V Frequent Meals: Eat small frequent meals (09/08/2016 11:19:Lior Díaz RN) N/V Empty Stomach: Try to keep something in your stomach (don't let your stomach get empty) (09/08/2016 11:19:Lior Díaz RN) N/V Time Getting Up: Take your time getting up (09/08/2016 11:19:Lior Díaz RN) N/V Avoid Smells: Avoid smells that make you feel sick (09/08/2016 11:19:Lior Díaz RN) Travel Seatbelts: Wear seatbelts or safety/lap belts (09/08/2016 11:19:Lior Díaz RN) Travel Walk Frequently: Walk frequently, every 1-2 hours (09/08/2016 11:19:Lior Díaz RN) Travel Comfort Clothes: Wear clothing that does not constrict and comfortable shoes (09/08/2016 11:19:Lior Díaz RN) Travel Light Snack: Keep a light snack (e.g. dry crackers) with you at all times to prevent nausea (09/08/2016 11:19:Lior Díaz RN) Travel Hydration: Drink plenty of water, low sodium and noncaffeinated drinks (09/08/2016 11:19:Lior Díaz RN) Travel Medications: DO NOT take any medication that is not approved by your physician first (09/08/2016 11:19:Lior Díaz RN) Travel PN Records: Always keep a copy of your medical record with you just in case (09/08/2016 11:19:Lior Díaz RN) Edema Avoid Standing: Avoid standing for long periods, keep legs up when you can (09/08/2016 11:19:Lior Díaz RN) Edema Rest on Side: When resting, lie on your side (left is best) (09/08/2016 11:19:Lior Díaz RN) Edema Limit Sodium: Limit the amount of salty foods you eat (09/08/2016 11:19:Lior Díaz RN) Edema Support Hose: Try to wear support hose as much as possible (09/08/2016 11:19:Lior Díaz RN) Exercise Overheating: Avoid situations that would cause you to become overheated (09/08/2016 11:19:Lior Díaz RN) Exercise Weather: Exercise outdoors only if the weather is reasonable and not too hot (09/08/2016 11:19:Lior Díaz RN) Exercise Exertion: Do not over exert yourself when you exercise (09/08/2016 11:19:Lior Díaz RN) Exercise Hydration: Drink plenty of fluids, especially water (09/08/2016 11:19:Lior Díaz RN) Exercise Support: Wear good support hose, bra and shoes when exercising (09/08/2016 11:19:Lior Díaz RN) Varicose Veins Instructions: Do not stand for long periods of time (09/08/2016 11:19:Lior Díaz RN) Varicose Veins Elevate Sit: Try to keep your legs elevated when you are sitting (09/08/2016 11:19:Lior Díaz RN) Varicose Veins Elevate Lying: When lying down, keep your legs elevated (09/08/2016 11:19:Lior Díaz RN) Varicise Veins Non Binding: When wearing stockings or socks, make sure they are not too tight and bind your legs (09/08/2016 11:19:Lior Díaz RN) Varicose Veins Support: Wear support hose/stockings at all times (09/08/2016 11:19:Lior Díaz RN) Varicose Veins Periodic Move: If you have a job where you sit a lot, get up periodically and walk around (09/08/2016 11:19:Lior Díaz RN)
--- NOTE | 2016-09-09 04:48 | L&D Admission Assessment ---
LD ADM ASMT Datetime Report Generated by CPN: 09/09/2016 04:45 PATIENT ASSESSMENT Assessment Type: Triage (09/09/2016 01:18:[facility], RN) WEIGHT Weight (lb): 191 (09/09/2016 01:12:QS system process) Weight (lb): 189 (09/08/2016 10:56:QS system process) Weight (kg): 86.8 (09/09/2016 01:12:QS system process) Weight (kg): 85.9 (09/08/2016 10:56:QS system process) BMI: 31.8 (09/09/2016 01:12:QS system process) BMI: 31.4 (09/08/2016 10:56:QS system process) PAIN Pain Scale: 4 (09/09/2016 01:18:Freida Lilly RN) Pain Presence: Intermittent (09/09/2016 01:18:Freida Lilly RN) Pain Presence: None/Denies (09/08/2016 11:14:Lior Díaz RN) Pain Presence: None/Denies (09/08/2016 10:50:Lior Díaz RN) Pain Type: Cramping; Contraction; Pressure (09/09/2016 01:18:Freida Lilly RN) Pain Location: Abdomen; Back (09/09/2016 01:18:Freida Lilly RN) Pain Goal: 0 (09/09/2016 01:18:Freida Lilly RN) Pain Related to Contraction: Yes (09/09/2016 01:18:Freida Lilly RN) CONTRACTIONS Frequency (min): 3.5-4 (09/09/2016 01:48:Freida Lilly RN) Frequency (min): x1 (09/09/2016 01:30:Freida Lilly RN) Frequency (min): q3 minutes (09/09/2016 01:18:Freida Lilly RN) Duration (sec): 60-100 (09/09/2016 01:48:Freida Lilly RN) Duration (sec): 60 (09/09/2016 01:30:Freida Lilly RN) Quality: Mild/Moderate (09/09/2016 01:48:Freida Lilly RN) Quality: Mild/Moderate (09/09/2016 01:30:Freida Lilly RN) Resting Tone Lesage: Relaxed (09/09/2016 01:48:Freida Lilly RN) Resting Tone Lesage: Relaxed (09/09/2016 01:30:Freida Lilly RN) VAGINAL EXAM Dilatation (cm): 1.5 (09/09/2016 02:55:Freida Lilly RN) Dilatation (cm): 1.0 (09/09/2016 01:29:Freida Lilly RN) Effacement (%): 60 (09/09/2016 02:55:Freida Lilly RN) Effacement (%): 60 (09/09/2016 01:29:Freida Lilly RN) Station: -1 (09/09/2016 02:55:Freida Lilly RN) Station: -1 (09/09/2016 01:29:Freida Lilly RN) NEURO Level of Consciousness: Fully Conscious (09/09/2016 01:18:Freida Lilly RN) Level of Consciousness: Fully Conscious (09/08/2016 11:14:Lior Díaz RN) Level of Consciousness: Fully Conscious (09/08/2016 10:50:Lior Díaz RN) DTR's/Clonus: DTRs 1+; No Clonus (09/09/2016 01:18:Freida Lilly RN) Headache: Denies (09/09/2016 01:18:Freida Lilly RN) Headache: Denies (09/08/2016 10:50:Lior Díaz RN) Dizziness: No (09/09/2016 01:18:Freida Lilly RN) Blurred Vision: No (09/09/2016 01:18:Freida Lilly RN) Extremity Numbness/Tingling : None (09/09/2016 01:18:Freida Lilly RN) Extremity Movement: Full Range of Motion (09/09/2016 01:18:Freida Lilly RN) CARDIOVASCULAR Heart Rhythm: Regular (09/09/2016 01:18:Freida Lilly RN) Nailbeds: [place] (09/09/2016 01:18:Freida Lilly RN) Capillary Refill: Less than 3 Seconds (09/09/2016 01:18:Freida Lilly RN) Lower Extremities Edema: None (09/09/2016 01:18:Freida Lilly RN) Lower Extremities Edema Degree: None (09/09/2016 01:18:Freida Lilly RN) Upper Extremities Edema: None (09/09/2016 01:18:Freida Lilly RN) Upper Extremities Edema Degree: None (09/09/2016 01:18:Freida Lilly RN) Facial Edema: None (09/09/2016 01:18:Freida Lilly RN) Zoltan's Sign Left Leg: Negative (09/09/2016 01:18:Freida Lilly RN) Zoltan's Sign Right Leg: Negative (09/09/2016 01:18:Freida Lilly RN) DVT RISK ASSESSMENT DVT Risk Age: Age less than 41 years (09/09/2016 01:18:Freida Lilly RN) DVT Risk BMI: BMI<31 (09/09/2016 01:18:Freida Lilly RN) DVT Risk Surgery: History of Prior Major Surgery (09/09/2016 01:18:Freida Lilly RN) DVT Risk Other: Women Only- or (<1 month) (09/09/2016 01:18:Freida Lilly RN) DVT Risk Total: 2 (09/09/2016 01:18:QS system process) DVT Risk Text: Moderate Risk (10-20%) - Consider stockings, compresssion device, pharmacological therapy per hospital policy (09/09/2016 01:18:QS system process) RESPIRATORY Respiratory Effort: Unlabored; Regular Rhythm; Equal Expansion (09/09/2016 01:18:Freida Lilly RN) Breath Sounds, Left: Clear and Equal (09/09/2016 01:18:Freida Lilly RN) Breath Sounds, Left: Clear and Equal (09/08/2016 10:50:Lior Díaz RN) Breath Sounds, Right: Clear and Equal (09/09/2016 01:18:Freida Lilly RN) Breath Sounds, Right: Clear and Equal (09/08/2016 10:50:Lior Díaz RN) Cough Productivity: None (09/09/2016 01:18:Freida Lilly RN) GASTROINTESTINAL Nausea/Vomiting: Present (09/09/2016 01:18:Freida Lilly RN) Nausea/Vomiting: Denies (09/08/2016 11:14:Lior Díaz RN) Nausea/Vomiting: Denies (09/08/2016 10:50:Lior Díaz RN) Bowel Sounds: Normoactive (09/09/2016 01:18:Freida Lilly RN) RUQ Epigastric Pain: Denies (09/09/2016 01:18:Freida Lilly RN) RUQ Epigastric Pain: Denies (09/08/2016 11:14:Lior Díaz RN) RUQ Epigastric Pain: Denies (09/08/2016 10:50:Lior Díaz RN) Bowel Patterns: Diarrhea (09/09/2016 01:18:Freida Lilly RN) Hemorrhoids: None (09/09/2016 01:18:Freida Lilly RN) Diet Type: Regular diet (09/09/2016 01:18:Freida Lilly RN) Last Meal: 09/08/2016 18:00 (09/09/2016 01:18:Freida Lilly RN) GENITOURINARY Bladder: Nondistended (09/09/2016 01:18:Freida Lilly RN) Frequency of Urination: No (09/09/2016 01:18:Freida Lilly RN) Urination Burning: No (09/09/2016 01:18:Freida Lilly RN) CVA Tenderness: No (09/09/2016 01:18:Freida Lilly RN) INTEGUMENTARY Skin Color: Normal for Race (09/09/2016 01:18:Freida Lilly RN) Skin Temperature: Warm (09/09/2016 01:18:Freida Lilly RN) Skin Moisture: Dry (09/09/2016 01:18:Freida Lilly RN) TIFFANY SKIN ASSESSMENT Tiffany Scale Sensory Perception: No Impairment- Responds to verbal commands. Has no sensory deficit which would limit ability to feel or voice pain or discomfort (09/09/2016 01:18:Freida Lilly RN) Tiffany Scale Moisture: Rarely Moist- Skin is usually dry. Linen only requires changing at routine intervals (09/09/2016 01:18:Freida Lilly RN) Tiffany Scale Activity: Walks Frequently- Walks outside the room at least twice a day and inside room at least every 2 hours during the day. (09/09/2016 01:18:Freida Lilly RN) Tiffany Scale Mobility: No Limitations- Makes major and frequent changes in position without assistance (09/09/2016 01:18:Freida Lilly RN) Tiffany Scale Nutrition: Excellent- Eats most of every meal. Never refuses a meal. Usually eats a total of 4 or more servings of meat and dairy products. Occasionally eats between meals. Does not require supplementation (09/09/2016 01:18:Freida Lilly RN) Tiffany Scale Friction and Shear: No Apparent Problem- Moves in bed and in chair independently and has sufficient muscle strength to lift up completely during move. Maintains good position in bed or chair at all times (09/09/2016 01:18:Freida Lilly RN) Tiffany Scale Total: 23 (09/09/2016 01:18:QS system process) Tiffany Scale Risk: No Risk of Pressure Ulcer Noted at this Time (09/09/2016 01:18:QS system process) SUPPORT Family Support: Significant Other supportive, at bedside frequently (09/09/2016 01:18:Freida Lilly RN) Emotional State: Calm/Relaxed (09/09/2016 01:18:Freida Lilly RN) SAFETY Call Hernandez Within Reach: Yes (09/09/2016 01:18:Freida Lilly RN) Side Rails Up: Yes (09/09/2016 01:18:Freida Lilly RN) Bed Wheels Locked: Yes (09/09/2016 01:18:Freida Lilly RN) Arm Bands Present: Yes (09/09/2016 01:18:Freida Lilly RN) Isolation: [place] (09/09/2016 01:18:Freida Lilly RN) FALL SCREEN Fall Risk History of Falling: (0) No (09/09/2016 01:18:Freida Lilly RN) Fall Risk Secondary Diagnosis: (0) No (09/09/2016 01:18:Freida Lilly RN) Fall Risk Ambulatory Aid: (0) None/Bedrest/Wheelchair/Nurse Assist (09/09/2016 01:18:Freida Lilly RN) Fall Risk IV Therapy: (0) No (09/09/2016 01:18:Freida Lilly RN) Fall Risk Gait: (0) Normal/Bedrest/Immobile (09/09/2016 01:18:Freida Lilly RN) Fall Risk Mental Status: (0) Oriented to Own Ability (09/09/2016 01:18:Freida Lilly RN) Fall Risk Score: 0 (09/09/2016 01:18:QS system process) Fall Risk Score Definition: No Risk: No action required (09/09/2016 01:18:QS system process) RECENT TRAVEL/INFECTIOUS DISEASE Recent Exp Communicable Disease: No (09/09/2016 01:18:Freida Lilly RN) Cough or Fever: No (09/09/2016 01:18:Freida Lilly RN) Foreign Travel Past 10 Days: No (09/09/2016 01:18:Freida Lilly RN) Open Wounds or Sores: No (09/09/2016 01:18:Freida Lilly RN) Prior Antibiotic Resistance Tx: No (09/09/2016 01:18:Freida Lilly RN) Cultures Obtained: Not Applicable (09/09/2016 01:18:Freida Lilly RN) Isolation Initiated: No (09/09/2016 01:18:Freida Lilly RN) Pt/Family Education: Handwashing Hygiene (09/09/2016 01:18:Freida Lilly RN) BABY A FHR Baseline Rate (bpm) Baby A: 125 (09/09/2016 01:48:Freida Lilly RN) FHR Baseline Rate (bpm) Baby A: 125 (09/09/2016 01:30:Freida Lilly RN) Variability Baby A: Moderate 6-25 bpm (09/09/2016 01:48:Freida Lilly RN) Variability Baby A: Moderate 6-25 bpm (09/09/2016 01:30:Freida Lilly RN) Accelerations Baby A: 15X15 (09/09/2016 01:48:Freida Lilly RN) Accelerations Baby A: 15X15 (09/09/2016 01:30:Freida Lilly RN) Decelerations Baby A: None (09/09/2016 01:48:Freida Lilly RN) Decelerations Baby A: None (09/09/2016 01:30:Freida Lilly RN)
--- NOTE | 2016-09-09 04:48 | L&D Flow Sheet ---
LD Flowsheet Datetime Report Generated by CPN: 09/09/2016 04:45 Datetime: 09/09/2016 03:10 Antiemetics/Antacids: Vistaril (mg) @ (Annotations: 50) (Freida Lilly RN) Patient Care Comments: Discussed Term and signs and symptoms of when to return to office or hospital with patient and spouse; both patient and spouse verbalized understanding. (Freida Lilly RN) Datetime: 09/09/2016 02:57 Communication: RN Reviewed Strip; Provider Orders Received; Call/Page Placed to Provider (Freida Lilly RN) Provider Notified (Name): Dr. Currie (Freida Lilly RN) Communication Comments: Informed Dr. Currie of patient's complaint, history, vag exams, urine results and FHR/contractions; orders received for Vistiril 50 mg and discharge home. (Freida Lilly RN) Datetime: 09/09/2016 02:55 Dilatation (cm): 1.5 (Freida Lilly RN) Effacement (%): 60 (Freida Lilly RN) Station: -1 (Freida Lilly RN) Exam by: HUSSAIN Major (Freida Lilly RN) Cervix, Position: Posterior (Freida Lilly RN) Datetime: 09/09/2016 02:27 Patient Care Comments: Back in room sitting on Birthing ball; patient stated she doesn't feel well - feels nausea and dizzy. (Freida Lilly RN) Datetime: 09/09/2016 01:48 Monitor Mode: External; Palpation (Freida Lilly, RN) Frequency (min): 3.5-4 (Freida Lilly, RN) Quality: Mild/Moderate (Freida Lilly, RN) Duration (sec): 60-100 (Freida Lilly, RN) Resting Tone (Palpate): Relaxed (Freida Lilly, RN) Monitor Mode: External US (Freida Lilly, RN) FHR Baseline Rate : 125 (Freida Lilly, RN) Variability: Moderate 6-25 bpm (Freida Lilly, RN) Accelerations: 15X15 (Freida Lilly, RN) Decelerations: None (Freida Lilly, RN) Patient Care Comments: Patient off monitor to walk floor for an hour (Freida Lilly, RN) Datetime: 09/09/2016 01:34 NBP Sys/Ila/Mean (mmHg): 110 (QS system process) : 57 (QS system process) : 76 (QS system process) Pulse: 79 (QS system process) LaborFlag: Antepartum (QS system process) Datetime: 09/09/2016 01:30 Monitor Mode: External; Palpation (Freida Field, RN) Monitor Interventions for UA: [place] Adjusted (Freida Field, RN) Frequency (min): x1 (Freida Field, RN) Quality: Mild/Moderate (Freida Field, RN) Duration (sec): 60 (Freida Field, RN) Resting Tone (Palpate): Relaxed (Freida Field, RN) Monitor Mode: External US (Freida Field, RN) FHR Baseline Rate : 125 (Freida Field, RN) Variability: Moderate 6-25 bpm (Freida Field, RN) Accelerations: 15X15 (Freida Field, RN) Decelerations: None (Freida Field, RN) Datetime: 09/09/2016 01:29 Dilatation (cm): 1.0 (Freida Field, RN) Effacement (%): 60 (Freida Field, RN) Station: -1 (Freida Field, RN) Exam by: J.Field RN (Freida Field, RN) Datetime: 09/09/2016 01:18 Frequency (min): q3 minutes (Freida Lilly RN) Pain Scale: 4 (Freida Lilly RN) Pain Presence: Intermittent (Freida Lilly RN) Pain Type: Cramping; Contraction; Pressure (Freida Lilly RN) Pain Location: Abdomen; Back (Freida Lilly RN) Pain Goal: 0 (Freida Lilly RN) Pain Relief Measures: Comfort Measures (Freida Lilly RN) Pain Coping: Talking Through Contractions; Breathing Through Contractions (Freida Lilly RN) Vaginal Bleeding: None (Freida Lilly RN) Level of Consciousness: Fully Conscious (Freida Lilly RN) DTR's/Clonus: DTRs 1+; No Clonus (Freida Lilly RN) Headache: Denies (Freida Lilly RN) Breath Sounds, Left: Clear and Equal (Freida Lilly RN) Breath Sounds, Right: Clear and Equal (Freida Lilly RN) Nausea/Vomiting: Present (Freida Lilly RN) RUQ Epigastric Pain: Denies (Freida Lilly RN) Instructional Method: Verbal; Patient Instructed; Family/Support Person Instructed; Verbalized Understanding (Freida Lilly RN) Plan of Care: Plan of Care Discussed (Freida Lilly RN) Unit Routine: [place] to Room; Call Hernandez; Bed; Visiting Policy; Waiting Areas; Phone/Cell Phone Use; Unit Personnel; Handwashing; Flu/Illness Precautions; Monitoring; Safety/Fall Risk Prevention; Bathroom Privileges (Freida Lilly RN) LaborFlag: Antepartum (QS system process) Datetime: 09/09/2016 01:10 NBP Sys/Ila/Mean (mmHg): 95 (QS system process) : 53 (QS system process) : 65 (QS system process) Pulse: 89 (QS system process) LaborFlag: Antepartum (QS system process)
--- NOTE | 2016-09-09 04:48 | L&D Current Admission ---
Current Admit Datetime Report Generated by CPN: 09/09/2016 04:45 ADMISSION INFORMATION Chief Complaint: Contractions (09/09/2016 01:18:Freida Lilly, HUSSAIN)
== END 2016-09-09 03:16 | disposition home or self-care (01) ==
LOC: LC 00:53
PROVIDERS: ATTEND Obstetrics & Gynecology
PROC: 4A1HXCZ Monitoring of Products of Conception, Cardiac Rate, External Approach (ICD-10-PCS; principal; 2016-09-09)
DX: O47.1 False labor at or after 37 completed weeks of gestation (principal); O48.0 Post-term pregnancy; Z3A.40 40 weeks gestation of pregnancy
CPT/HCPCS: 59025; 80307; 81005

== ENCOUNTER 2016-09-09 04:55 | Inpatient (IN) | payer BC ==
--- NOTE | 2016-09-09 05:02 | Non Stress Test Report ---
Non Stress Test Datetime Report Generated by CPN: 09/09/2016 05:02 DEMOGRAPHIC Test Number: 3 EGA NST: 40.2 INDICATION Indication for Study: Ordered by Provider Indication for Study (NST) Other: LC MONITORING Monitor Explained: Monitor Explained; Test Explained; Patient Verbalized Understanding Time on Monitor: 09/09/2016 01:09 Time off Monitor: 09/09/2016 01:48 NST Duration: 39 NST INTERVENTIONS NST Interventions: PO Hydration; Reposition Patient Physician Notified NST: Dr. Currie BABY A Movement : Present Contraction Frequency : 3.5-4 FHR Baseline : 125 Accelerations : 15X15 Decelerations : None Variability : Moderate 6-25bpm NST Review: Meets Criteria for Reactive NST NST Review and Verified By : HUSSAIN Guan Results: Reactive NST REPORT Report Trigger: Send Report
[2016-09-09] MEDS ORDERED: RINGERS SOLUTION,LACTATED 1,000 ML IV PRN (05:11)
[2016-09-09] MEDS ORDERED: EPHEDRINE SULFATE INJ 50 MG/1 ML AMPULE ONE (05:15)
[2016-09-09] MEDS ORDERED: OXYTOCIN/NORMAL SALINE 20 UNIT/1,000 ML RTUINJ ONE (05:15)
[2016-09-09] MEDS ORDERED: BUPIVACAINE HCL 0.25 % INJ/PF (2.5 MG/1 ML) 30 ML VIAL ONE (05:15)
[2016-09-09] MEDS ORDERED: MISOPROSTOL 0.2 MG TABLET ONE (05:15)
[2016-09-09] MEDS ORDERED: FENTANYL/BUPIVACAINE/NS/PF 200 MCG/100 ML RTUINJ EPI ONE (05:15)
[2016-09-09] MEDS ORDERED: LIDOCAINE 1% INJ-PF (10 MG/ML) 30 ML SDV ONE (05:15)
[2016-09-09 05:52] LABS: ABSOLUTE EOSINOPHILS # (AUTO) 0.1 10^3/uL (0.0-0.6); ABSOLUTE LYMPHOCYTES (AUTO) 2.2 10^3/uL (0.5-4.7); ABSOLUTE MONOCYTES (AUTO) 0.9 10^3/uL (0.1-1.4); ABSOLUTE NEUT (AUTO) 13.5 10^3/uL (1.7-8.2); BASOPHILS % (AUTO) 0.2 % (0-2); EOSINOPHILS % (AUTO) 0.5 % (0-6); HEMATOCRIT 28.2 % (36.0-47.0); HEMOGLOBIN 8.8 g/dL (12.0-15.5); HGB HCT DIFFERENCE -1.8; MEAN CORPUSCULAR HEMOGLOBIN 24.5 pg (27.0-33.4); MEAN CORPUSCULAR HGB CONC 31.1 g/dL (32.0-36.0); MEAN CORPUSCULAR VOLUME 79 fl (80-97); MONOCYTES % (AUTO) 5.4 % (3-13); RED BLOOD COUNT 3.59 10^6/uL (3.72-5.28); RED CELL DISTRIBUTION WIDTH 15.6 % (11.5-14.0); SEGMENTED NEUTROPHILS % (AUTO) 80.9 % (42-78); WHITE BLOOD COUNT 16.7 10^3/uL (4.0-10.5)
--- NOTE | 2016-09-09 06:26 | L&D Current Admission ---
Current Admit Datetime Report Generated by CPN: 09/09/2016 06:00 ADMISSION INFORMATION Current Admit Date/Time: 09/09/2016 05:15 (09/09/2016 05:15:Lorena Ellison RN) Reason for Admission: Onset of Labor; Rupture of Membranes (09/09/2016 05:15:Lorena Ellison RN) Other Reason for Admission: severe N/V/D (07/11/2016 05:00:Alyse Brar RN) Chief Complaint: Contractions; Suspected Rupture of Membranes (09/09/2016 05:15:Cadence Davila RN) Medications During : Vitamin; Rantidine (Zantac) (09/09/2016 05:15:Lorena Ellison RN) EGA per Dates: 40.2 (09/09/2016 05:15:QS system process) Method of Arrival: Wheelchair (09/09/2016 05:15:Lorena Ellison RN) Admitted From: Home (09/09/2016 05:15:Lorena Scot, RN) Reason for Induction: Not Applicable (09/09/2016 05:15:Lorena Ellison RN) Records Available: Yes (09/09/2016 05:15:Lorena Ellison RN) General Admission Information: Reviewed; Updated; Confirmed (09/09/2016 05:15:Lorena Ellison RN) General Admission Reviewed By: Amanda Ellison RN (09/09/2016 05:15:Lorena Ellison RN) BELONGINGS/ADVANCED DIRECTIVES Valuables/Personal Effects: None (07/11/2016 05:00:Alyse Brar RN) Other Belongings: See [facility] belongings form (09/09/2016 05:15:Lorena Ellison RN) Disposition of Belongings: Kept with Patient (07/11/2016 05:00:Alyse Brar RN) Advance Direct for Healthcare: No, but Requests Information (09/09/2016 05:15:Lorena Ellison RN) Durable Power of Respiratory Manager: No (09/09/2016 05:15:Lorena Ellison RN) Living Will: No (09/09/2016 05:15:Lorena Ellison RN) Organ Donor: Yes (09/09/2016 05:15:Lorena Ellison RN) Pt Rights Information Given: Yes (09/09/2016 05:15:Lorena Ellison RN) Pt Understands Pt Rights: No (09/09/2016 05:15:Lorena Ellison RN) LEARNING ASSESSMENT Knowledge Level: Understands L_D Process (09/09/2016 05:15:Lorena Ellison RN) Barriers to Learning: Emotional State; Pain (09/09/2016 05:15:Lorena Ellison RN) Learning Readiness: Motivated (09/09/2016 05:15:Lorena Ellison RN) Learns Best By: 1 to 1 Instruction (09/09/2016 05:15:Lorena Ellison RN) Learning Needs: Labor and Delivery Process; Pain Management; Symptoms to Report; Treatment Plan; Medication; Equipment (09/09/2016 05:15:Lorena Ellison RN) DOMESTIC VIOLANCE SCREENING Dom Viol Threatened/Hurt: No (07/11/2016 05:00:Alyse Brar RN) Hx of Abuse/Neglect past 2yrs: No (07/11/2016 05:00:Alyse Brar RN) Feel Unsafe Going Home: No (07/11/2016 05:00:Alyse Brar RN) Addt'l Observ Indicating Abuse: No (07/11/2016 05:00:Alyse Brar RN) Reason Unable to Complete Screen: N/A, Screen Completed (07/11/2016 05:00:Alyse Brar RN) Considered Personal Harm/Suicide: No (07/11/2016 05:00:Alyse Brar RN) NUTRITIONAL/FUNCTIONAL SCREENING Problem with Appetite >5 Days: No (09/09/2016 05:15:Lorena Ellison RN) Chew/Swallow Difficulties: No (09/09/2016 05:15:Lorena Ellison RN) Inappropriate Wt Gain/Loss: No (09/09/2016 05:15:Lorena Ellison RN) Presence Skin Breakdown/Ulcer: No (09/09/2016 05:15:Lorena Ellison RN) Special Diet: No (09/09/2016 05:15:Lorena Ellison RN) Pt 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
--- NOTE | 2016-09-09 06:27 | L&D General Admission ---
General Admit Datetime Report Generated by CPN: 09/09/2016 06:00 INFORMATION Patient Age: 30 (07/11/2016 04:45:QS system process) EDC: 09/07/2016 00:00 (07/11/2016 04:49:Mahogany Valerio RN) : 2 (07/11/2016 04:49:Yarely Martinez RN) Para: 1 (09/09/2016 03:20:Freida Lilly RN) Term: 1 (07/11/2016 04:49:Yarely Martinez RN) : 0 (07/11/2016 04:49:Yarely Martinez RN) Spontaneous Abortions: 0 (07/11/2016 04:49:Yarely Martinez RN) Induced Abortions: 0 (07/11/2016 04:49:Yarely Martinez RN) Livin (07/11/2016 04:49:Yarely Martinez RN) Baby, Number in Womb: 1 (09/09/2016 03:20:Freida Lilly RN) CARE Primary Avionics Supervisor: [employer] (07/11/2016 04:49:Annel Chambers RN) Month of 1st Visit: 01/2016 (07/11/2016 04:49:Annel Chambers RN) Adequate Care: No (07/11/2016 04:49:Annel Chambers RN) Height (in): 65 (07/11/2016 06:06:QS system process) ALLERGIES Medication Allergy: Yes (07/11/2016 04:49:Yarely Martinez RN) Medication Allergies: morphine/VA/Pruritis (09/09/2016) (09/09/2016 01:12:QS system process) Latex Allergy: No Latex Allergies (07/11/2016 04:49:Yarely Martinez RN) Food Allergies: None (07/11/2016 04:49:Alyse Brar RN) Environmental Allergies: None (07/11/2016 04:49:Alyse Brar RN) COMMUNICATION Primary Language: Tuvaluan (07/11/2016 04:49:Annel Chambers RN) Medical Tx Preferred Language: Tuvaluan (07/11/2016 04:49:Yarely Martinez RN) Tuvaluan Communication Ability: Speaks Tuvaluan; Reads Tuvaluan (07/11/2016 04:49:Yarely Martinez RN) DEMOGRAPHICS Address: [address] [place] [id number] (07/11/2016 04:46:QS system process) Zipcode: [id number] (07/11/2016 04:46:QS system process) Home (07/11/2016 04:45:QS system process) Work (07/11/2016 04:45:QS system process) N: [phone] (07/11/2016 04:45:QS system process) Next of Kin Name: JAMI GO (07/11/2016 04:45:QS system process) Next of Kin (07/11/2016 04:45:QS system process) Next of Kin Relationship: SPO (07/11/2016 04:45:QS system process) Date of : 1985 (07/11/2016 04:45:QS system process) Marital Status: (07/11/2016 04:45:QS system process) Sex: Female (07/11/2016 04:45:QS system process) 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 [phone] (07/11/2016 04:49:Alyse Brar RN) Marijuana: No (07/11/2016 04:49:Alyse Brar RN) Cocaine: No (07/11/2016 04:49:Alyse Brar RN) Other Illicit Drugs: No (07/11/2016 04:49:Alyse Brar RN) VACCINE HISTORY Influenza Vaccine: Yes (07/11/2016 04:49:Annel Chambers RN) Influenza Date: 06/18/2016 (07/11/2016 04:49:Annel Chambers RN) Pneumococcal Vaccine: No (07/11/2016 04:49:Alyse Brar RN) Tetanus Vaccine: Yes (07/11/2016 04:49:Annel Chambers RN) Tetanus Date: 06/18/2016 (07/11/2016 04:49:Annel Chambers RN) Tdap Vaccine: No (07/11/2016 04:49:Alyse Brar RN) Hepatitis B Vaccine: Yes (07/11/2016 04:49:Alyse Brar RN) Court Abstractor: [facility] (07/11/2016 04:49:Freida Lilly RN) Feeding Preference: Formula (07/11/2016 04:49:Alyse Brar RN) Benefit of Breast Feed Discussed: N/A (07/11/2016 04:49:Alyse Brar RN) Circumcision: Yes (07/11/2016 04:49:Freida Lilly RN) Classes Attended: No (07/11/2016 04:49:Freida Lilly RN) Tubal Ligation: No (07/11/2016 04:49:Alyse Brar RN) Tubal Authorization Signed: N/A (07/11/2016 04:49:Alyse Brar RN) Consent: N/A (07/11/2016 04:49:Alyse Brar RN) Consent Signed: N/A (07/11/2016 04:49:Alyse Brar RN) Pain Management Plans: Epidural (07/11/2016 04:49:Freida Lilly RN) Plans for Labor and Delivery: Other, Specify (07/11/2016 04:49:Alyse Brar, RN) Other Labor and Delivery Plans: 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 (07/11/2016 04:49:Alyse Brar RN) Support Person: Jami Go (07/11/2016 04:49:Alyse Brar RN) Support Person Relationship: (07/11/2016 04:49:Alyse Brar RN) Cultural/Spritual Practice: No (07/11/2016 04:49:Alyse Brar RN) Spir/Cult Dietary Needs: No (07/11/2016 04:49:Freida Lilly RN) LIVING SITUATION/DISCHARGE PLAN Living Arrangements: House (07/11/2016 04:49:Alyse Brar RN) Adequate Access to:: Electric; Heat; Refrigeration; Plumbing/Running water; Phone; Transportation (07/11/2016 04:49:Alyse Brar RN) WIC Program: No (07/11/2016 04:49:Alyse Brar RN) Discharge Inlayer Person: Jami Go (07/11/2016 04:49:Alyse Brar RN) Person to Help after Discharge: Jami Go (07/11/2016 04:49:Alyse Brar RN) Currently Using Commun Resources: No (07/11/2016 04:49:Alyse Brar RN) Outside Agency/Welder Apprentice: No (07/11/2016 04:49:Alyse Brar RN) Car Seat for Discharge: Yes (07/11/2016 04:49:Alyse Brar RN) Adoption Requested: No (07/11/2016 04:49:Alyse Brar RN) Pt Contact w/ Post : N/A (07/11/2016 04:49:Alyse Brar RN) LABS Blood Type: O Negative (07/11/2016 04:49:Annel Chambers RN) Rho(G) this : Yes (07/11/2016 04:49:Annel Chambers RN) Date Rho(G) Given: 06/18/2016 (07/11/2016 04:49:Annel Chambers RN) Hemoglobin: 8.8 L (09/09/2016 05:33:QS system process) Hematocrit: 28.2 L (09/09/2016 05:33:QS system process) MCV: 79 L (09/09/2016 05:33:QS system process) Group Beta Strep: neg (07/11/2016 04:49:Christiano Soliz RN) Gonorrhea: Negative (07/11/2016 04:49:Annel Chambers RN) Chlamydia: Negative (07/11/2016 04:49:Annel Chambers RN) RPR/VDRL: Nonreactive (07/11/2016 04:49:Annel Chambers RN) HIV Exposure Test: Negative (07/11/2016 04:49:Annel Chambers RN) Hepatitis B: Negative (07/11/2016 04:49:Annel Chambers RN) Rubella: Immune (07/11/2016 04:49:Annel Chambers RN) OB/PREVIOUS HISTORY Previous Procedures: Ultrasound (07/11/2016 04:49:Alyse Brar RN) Current Procedures: Ultrasound (07/11/2016 04:49:Alyse Brar RN) History of Previous : No (07/11/2016 04:49:Alyse Brar RN) History of Gestational Diabetes: No (07/11/2016 04:49:Alyse Brar RN) History of PIH: No (07/11/2016 04:49:Alyse Brar RN) History of Incompetent Cervix: No (07/11/2016 04:49:Alyse Brar RN) History of Placenta Previa/Abrup: No (07/11/2016 04:49:Alyse Brar RN) History of Macrosomia: No (07/11/2016 04:49:Alyse Brar RN) History of IUGR: No (07/11/2016 04:49:Alyse Brar RN) History of Hemorrhage: No (07/11/2016 04:49:Alyse Brar RN) History of Loss/Stillborn: No (07/11/2016 04:49:Alyse Brar RN) History of : No (07/11/2016 04:49:Alyse Brar RN) History of D (Rh) Sensitization: No (07/11/2016 04:49:Alyse Brar RN) History Recurrent Loss/Stillborn: No (07/11/2016 04:49:Alyse Brar RN) History Depression/PP Depression: No (07/11/2016 04:49:Alyse Brar RN) History of Uterine Anomaly/TANNER: No (07/11/2016 04:49:Alyse Brar RN) History of Infertility: No (07/11/2016 04:49:Alyse Brar RN) History of ART Treatment: No (07/11/2016 04:49:Alyse Brar RN) History of TANNER: No (07/11/2016 04:49:Alyse Brar RN) Comments Obstetrical History: G1 - 11/24/10 G2 - current - failed 1 hr gtt (07/11/2016 04:49:Annel Chambers RN) MEDICAL HISTORY Med Hx Diabetes: No (07/11/2016 04:49:Alyse Brar RN) Med Hx Hypertension: No (07/11/2016 04:49:Alyse Brar RN) Med Hx Heart Disease: No (07/11/2016 04:49:Alyse Brar RN) Med Hx Autoimmune Disorder: No (07/11/2016 04:49:Alyse Brar RN) Med Hx Kidney Disease/UTI: No (07/11/2016 04:49:Alyse Brar RN) Med Hx Neurologic/Epilepsy: No (07/11/2016 04:49:Alyse Brar RN) Med Hx Psychiatric Disorders: No (07/11/2016 04:49:Alyse Brar RN) Med Hx Hepatitis/Liver Disease: No (07/11/2016 04:49:Alyse Brar RN) Med Hx Varicosities/Phlebitis: No (07/11/2016 04:49:Alyse Brar RN) Med Hx Thyroid Dysfunction: No (07/11/2016 04:49:Alyse Brar RN) Med Hx Trauma/Violence: No (07/11/2016 04:49:Alyse Brar RN) Med Hx Blood Transfusion: No (07/11/2016 04:49:Alyse Brar RN) Med Hx Pulmonary (Asthma,TB): No (07/11/2016 04:49:Alyse Brar RN) Med Hx Breast: No (07/11/2016 04:49:Alyse Brar RN) Med Hx CORONARY CARE UNIT NURSE Surgery: No (07/11/2016 04:49:Alyse Brar RN) Med Hx Hospitalization/Surgery: Yes (07/11/2016 04:49:Alyse Brar RN) Med Hx Anesthetic Complications: No (07/11/2016 04:49:Alyse Brar RN) Med Hx Abnormal Pap Smear: No (07/11/2016 04:49:Alyse Brar RN) Other Medical Diseases: Yes (07/11/2016 04:49:Alyse Brar RN) Med Hx Significant Family Hx: No (07/11/2016 04:49:Alyse Brar RN) Details of Med/Surg Hx: Hx of Prolactinoma - unable to breastfeed Hospitalized for childbirth (07/11/2016 04:49:Alyse Brar RN) INFECTIOUS HISTORY Inf Hx Gonorrhea: No (07/11/2016 04:49:Alyse Brar RN) Inf Hx Chlamydia: No (07/11/2016 04:49:Alyse Brar RN) Inf Hx Syphilis: No (07/11/2016 04:49:Alyse Brar RN) Inf Hx HIV/AIDS: No (07/11/2016 04:49:Alyse Brar RN) Inf Hx Human Papilloma Virus: No (07/11/2016 04:49:Alyse Brar RN) Inf Hx Pt/Partner Genital Herpes: No (07/11/2016 04:49:Alyse Brar RN) Inf Hx Tuberculosis/Exposure: No (07/11/2016 04:49:Alyse Brar RN) Inf Hx Hepatitis B,C: No (07/11/2016 04:49:Alyse Brar RN) Inf Hx Rash or Viral Illness: No (07/11/2016 04:49:Alyse Brar RN) GENETIC HISTORY Gen Hx Age >=35 at PRIMITIVO: No (07/11/2016 04:49:Alyse Brar RN) Gen Hx Thalassemia: No (07/11/2016 04:49:Alyse Brar RN) Gen Hx Congenital Heart Defect: No (07/11/2016 04:49:Alyse Brar RN) Gen Hx Neural Tube Defect: No (07/11/2016 04:49:Alyse Brar RN) Gen Hx Down's Syndrome: No (07/11/2016 04:49:Alyse Brar RN) Gen Hx Ricardo-Sachs: No (07/11/2016 04:49:Alyse Brar RN) Gen Hx Adia: No (07/11/2016 04:49:Alyse Brar RN) Gen Hx Familial Dysautonomia: No (07/11/2016 04:49:Alyse Brar RN) Gen Hx Sickle Cell Disease/Trait: No (07/11/2016 04:49:Alyse Brar RN) Gen Hx Hemophilia/Blood Disorder: No (07/11/2016 04:49:Alyse Brar RN) Gen Hx Muscular Dystrophy: No (07/11/2016 04:49:Alyse Brar RN) Gen Hx Cystic Fibrosis: No (07/11/2016 04:49:Alyse Brar RN) Gen Hx Huntingtons Chorea: No (07/11/2016 04:49:Alyse Brar RN) Gen Hx Mental Retardation/Autism: No (07/11/2016 04:49:Alyse Brar RN) Gen Hx Tested for Fragile X: No (07/11/2016 04:49:Alyse Brar RN) Gen Hx Other Inher/Chromosomal: No (07/11/2016 04:49:Alyse Brar RN) Gen Hx Maternal Metabolic DO: No (07/11/2016 04:49:Alyse Brar RN) Gen Hx Pt Father or FOB Defect: No (07/11/2016 04:49:Alyse Brar RN) Gen Hx Other Genetic History: No (07/11/2016 04:49:Alyse Brar RN) Gen Hx Drugs/Meds since LMP: No (07/11/2016 04:49:Alyse Brar RN)
--- NOTE | 2016-09-09 08:01 | L&D Flow Sheet ---
LD Flowsheet Datetime Report Generated by CPN: 09/09/2016 08:00 Datetime: 09/09/2016 07:59 NBP Sys/Ila/Mean (mmHg): 93 (QS system process) : 61 (QS system process) : 72 (QS system process) Pulse: 77 (QS system process) LaborFlag: Antepartum (QS system process) Datetime: 09/09/2016 07:45 NBP Sys/Ila/Mean (mmHg): 98 (QS system process) : 65 (QS system process) : 74 (QS system process) Pulse: 86 (QS system process) LaborFlag: Antepartum (QS system process) Datetime: 09/09/2016 07:15 NBP Sys/Ila/Mean (mmHg): 111 (QS system process) : 61 (QS system process) : 77 (QS system process) Pulse: 122 (QS system process) Monitor Mode: External (Lorena Scot, RN) Frequency (min): 2-3 (Lorena Scot, RN) Quality: Moderate (Lorena Scot, RN) Duration (sec): 60-120 (Lorena Scot, RN) Resting Tone (Palpate): Relaxed (Lorena Scot, RN) Monitor Mode: Internal Scalp Electrode (Lorena Scot, RN) FHR Baseline Rate : 110 (Lorena Scot, RN) Variability: Moderate 6-25 bpm (Lorena Scot, RN) Accelerations: 10X10 (Lorena Scot, RN) Decelerations: Late (Lorena Scot, RN) LaborFlag: Antepartum (QS system process) Datetime: 09/09/2016 07:13 Communication: Report Given to @ K Maykel RNC (Lorena Ellison RN) Communication Comments: care relinquished (Lorena Ellison RN) Datetime: 09/09/2016 07:11 Pushing: Coached on Pushing (Cadence Davila RN) Pushing Position: Pushing with Contractions (Cadence Davila RN) Preparation for Delivery: Setup for Delivery (Cadence Davila RN) Stage 2 Comments: RN and provider to remain at bedside throughout second stage continuously assessing fhr while pushingwith contractions (Cadence Davila RN) Communication: Provider at Bedside (Cadence Davila RN) Datetime: 09/09/2016 07:10 Instructional Method: Demo; Verbal; Patient Instructed; Family/Support Person Instructed; Verbalized Understanding (Cadence Davila RN) Labor/Induction: Pushing Methods (Cadence Davila RN) Datetime: 09/09/2016 07:09 I/O Interventions: Guerrero Discontinued (Cadence Giovanni, RN) Datetime: 09/09/2016 07:06 Actions for Decelerations: Sterile Vaginal Exam (Cadence Davila RN) Dilatation (cm): 10.0 (Cadence Davila, RN) Effacement (%): 100 (Cadence Davila, RN) Station: 1 (Cadence Davila, RN) Exam by: K Scot RN (Cadence Davila, RN) Datetime: 09/09/2016 07:04 Actions for Decelerations: Side to Side; Oxygen Applied (Cadence Giovanni, RN) Oxygen Method: Non-Rebreather (Cadence Davila, RN) Datetime: 09/09/2016 07:01 Patient Care Comments: Pt turned from L side to R side. (Cadence Davila, RN) Datetime: 09/09/2016 07:00 NBP Sys/Ila/Mean (mmHg): 107 (QS system process) : 56 (QS system process) : 75 (QS system process) Pulse: 71 (QS system process) Monitor Mode: External (Lorena Scot, RN) Frequency (min): 2-4 (Lorena Scot, RN) Quality: Moderate (Lorena Scot, RN) Duration (sec): 60-110 (Lorena Scot, RN) Resting Tone (Palpate): Relaxed (Lorena Scot, RN) Monitor Mode: Internal Scalp Electrode (Lorena Scot, RN) FHR Baseline Rate : 115 (Lorena Scot, RN) Variability: Moderate 6-25 bpm (Lorena Scot, RN) Accelerations: None (Lorena Scot, RN) Decelerations: Late (Lorena Scot, RN) LaborFlag: Antepartum (QS system process) Datetime: 09/09/2016 06:46 Actions for Decelerations: Provider Notified (Lorena Scot, RN) Communication Comments: Report to Dr Currie for change in FHR to 100-115 bpm, no fever, accels and moderate variability. No further orders at this time (Lorena Scot, RN) Datetime: 09/09/2016 06:45 Monitor Mode: External (Lorena Scot, RN) Frequency (min): 2-3 (Lorena Scot, RN) Quality: Moderate (Lorena Scot, RN) Duration (sec): 70-140 (Lorena Scot, RN) Resting Tone (Palpate): Relaxed (Lorena Scot, RN) Monitor Mode: External US; Internal Scalp Electrode (Lorena Scot, RN) FHR Baseline Rate : 115 (Lorena Scot, RN) Variability: Moderate 6-25 bpm (Lorena Scot, RN) Accelerations: 15X15 (Lorena Scot, RN) Decelerations: None (Lorena Scot, RN) Datetime: 09/09/2016 06:41 Patient Position/Activity: Left Lateral; Peanut Ball (Cadence Giovanni, RN) Datetime: 09/09/2016 06:40 Monitor Interventions for FHR: FSE Applied (Lorena Scot, RN) Dilatation (cm): 9.5 (Lorena Scot, RN) Effacement (%): 90 (Lorena Scot, RN) Station: 0 (Lorena Scot, RN) Exam by: R Giovanni RNC (Lorena Scot, RN) Datetime: 09/09/2016 06:38 NBP Sys/Ila/Mean (mmHg): 109 (QS system process) : 57 (QS system process) : 77 (QS system process) Pulse: 81 (QS system process) Respirations: 15 (Lorena Scot, RN) Temperature (F): 97.9 (Lorena Scot, RN) Temperature (C): 36.6 (QS system process) Temperature Route: Oral (Lorena Ellison RN) Pain Assessment Comments: Pt sleeping (Lorena Ellison RN) LaborFlag: Antepartum (QS system process) Datetime: 09/09/2016 06:37 Pulse: 81 (QS system process) SpO2 (%): 97 (QS system process) LaborFlag: Antepartum (QS system process) Datetime: 09/09/2016 06:33 NBP Sys/Ila/Mean (mmHg): 108 (QS system process) : 56 (QS system process) : 75 (QS system process) Pulse: 81 (QS system process) LaborFlag: Antepartum (QS system process) Datetime: 09/09/2016 06:32 Pulse: 70 (QS system process) SpO2 (%): 97 (QS system process) LaborFlag: Antepartum (QS system process) Datetime: 09/09/2016 06:30 Monitor Mode: External (Cadence Davila RN) Frequency (min): 2-3 (Cadence Davila RN) Quality: Moderate (Cadence Davila, RN) Duration (sec): 50-70 (Cadence Davila RN) Pattern: Normal: <= 5 Contractions in 10 Minutes (Cadence Davila RN) Resting Tone (Palpate): Relaxed (Cadence Davila RN) Monitor Mode: External US (Cadence Davila RN) FHR Baseline Rate : 105 (Cadence Davila RN) FHR Baseline Changes: Bradycardia (Cadence Giovanni, RN) Variability: Moderate 6-25 bpm (Cadence Giovanni, RN) Accelerations: None (Cadence Giovanni, RN) Decelerations: None (Cadence Giovanni, RN) Datetime: 09/09/2016 06:28 NBP Sys/Ila/Mean (mmHg): 104 (QS system process) : 51 (QS system process) : 74 (QS system process) Pulse: 98 (QS system process) I/O Interventions: Guerrero Cath Inserted (Lorena Ellison RN) Patient Care Comments: guerrero catheter inserted with aseptic technique by Brendon East CNA (Lorena Ellison RN) LaborFlag: Antepartum (QS system process) Datetime: 09/09/2016 06:27 NBP Sys/Ila/Mean (mmHg): 107 (QS system process) : 55 (QS system process) : 78 (QS system process) Pulse: 110 (QS system process) Pulse: 113 (QS system process) SpO2 (%): 97 (QS system process) LaborFlag: Antepartum (QS system process) Datetime: 09/09/2016 06:26 NBP Sys/Ila/Mean (mmHg): 113 (QS system process) : 57 (QS system process) : 78 (QS system process) Pulse: 112 (QS system process) LaborFlag: Antepartum (QS system process) Datetime: 09/09/2016 06:25 NBP Sys/Ila/Mean (mmHg): 116 (QS system process) : 55 (QS system process) : 76 (QS system process) Pulse: 116 (QS system process) LaborFlag: Antepartum (QS system process) Datetime: 09/09/2016 06:24 NBP Sys/Ila/Mean (mmHg): 132 (QS system process) : 72 (QS system process) : 96 (QS system process) LaborFlag: Antepartum (QS system process) Datetime: 09/09/2016 06:22 Pulse: 112 (QS system process) SpO2 (%): 98 (QS system process) LaborFlag: Antepartum (QS system process) Datetime: 09/09/2016 06:20 NBP Sys/Ila/Mean (mmHg): 98 (QS system process) : 54 (QS system process) : 70 (QS system process) Pulse: 97 (QS system process) Monitor Interventions for UA: [place] Adjusted (Lorena Ellison RN) Monitor Interventions for FHR: Ultrasound Adjusted (Lorena Ellison RN) Patient Position/Activity: Supine (Lorena Ellison RN) Epidural Procedure Other: Pump Started (Lorena Ellison RN) Anesthesia Level Check: T10- Umbilicus (Lorena Ellison RN) LaborFlag: Antepartum (QS system process) Datetime: 09/09/2016 06:19 NBP Sys/Ila/Mean (mmHg): 126 (QS system process) : 70 (QS system process) : 87 (QS system process) Pulse: 106 (QS system process) LaborFlag: Antepartum (QS system process) Datetime: 09/09/2016 06:18 Pulse: 106 (QS system process) SpO2 (%): 94 (QS system process) LaborFlag: Antepartum (QS system process) Datetime: 09/09/2016 06:17 Pulse: 117 (QS system process) SpO2 (%): 95 (QS system process) LaborFlag: Antepartum (QS system process) Datetime: 09/09/2016 06:15 NBP Sys/Ila/Mean (mmHg): 134 (QS system process) : 73 (QS system process) : 97 (QS system process) Pulse: 113 (QS system process) Monitor Mode: External; Palpation (Lorena Ellison RN) Frequency (min): 2-4 (Lorena Ellison RN) Quality: Moderate (Lorena Ellison RN) Duration (sec): 60-120 (Lorena Ellison RN) Resting Tone (Palpate): Relaxed (Lorena Ellison RN) Comments: Unable to assess FHR during epidural procedure, RN at bedside attempting to adjust u/s during epidural (Lorena Ellison RN) Epidural Procedure: Cath Placed; Test Dose (Lorena Ellison RN) LaborFlag: Antepartum (QS system process) Datetime: 09/09/2016 06:12 Pulse: 109 (QS system process) Pulse: 115 (QS system process) SpO2 (%): 92 (QS system process) SpO2 (%): 94 (QS system process) LaborFlag: Antepartum (QS system process) Datetime: 09/09/2016 06:11 NBP Sys/Ila/Mean (mmHg): 123 (QS system process) : 71 (QS system process) : 90 (QS system process) Pulse: 103 (QS system process) LaborFlag: Antepartum (QS system process) Datetime: 09/09/2016 06:07 Procedure Verify: Correct Patient Identity; Correct Side and Site are Marked; Accurate Procedure Consent Form; Agreement on Procedure to be Done; Correct Patient Position; Relevant Images and Results are Properly Labeled and Displayed; Addressed Need to Administer Antibiotics or Fluids for Irrigation; Safety Precautions Based on Patient History or Medication Use (Lorena Ellison RN) Anesthesia Plans: Epidural (Lorena Ellison RN) Epidural Positioning: Sitting (Lorena Ellison RN) Anesthesia Comments: Dr Ceja at bedside for epidural procedure (Lorena Csot, RN) Datetime: 09/09/2016 06:06 Actions for Decelerations: Side to Side; Oxygen Applied (Lorena Scot, RN) Datetime: 09/09/2016 06:00 Monitor Mode: External (Lorena Scot, RN) Frequency (min): 2-4 (Lorena Scot, RN) Quality: Moderate (Lorena Scot, RN) Duration (sec): 70-120 (Lorena Scot, RN) Resting Tone (Palpate): Relaxed (Lorena Scot, RN) Monitor Mode: External US (Lorena Scot, RN) FHR Baseline Rate : 125 (Lorena Scot, RN) Variability: Moderate 6-25 bpm (Lorena Scot, RN) Accelerations: 15X15 (Lorena Scot, RN) Decelerations: Early; Late (Lorena Scot, RN) Datetime: 09/09/2016 05:59 Actions for Decelerations: Side to Side (Lorena Scot, RN) Datetime: 09/09/2016 05:57 Actions for Decelerations: Sterile Vaginal Exam (Lorena Scot, RN) Dilatation (cm): 7.0 (Lorena Scot, RN) Exam by: K Scot RN (Lorena Scot, RN) Stage 2 Comments: involuntary pushing (Lorena Scot, RN) Datetime: 09/09/2016 05:54 Actions for Decelerations: Side to Side (Lorena Scot, RN) Communication: RN at Bedside (Lorena Ellison RN) Datetime: 09/09/2016 05:46 Procedure Verify: Correct Patient Identity; Correct Side and Site are Marked; Accurate Procedure Consent Form; Agreement on Procedure to be Done; Correct Patient Position; Relevant Images and Results are Properly Labeled and Displayed; Addressed Need to Administer Antibiotics or Fluids for Irrigation; Safety Precautions Based on Patient History or Medication Use (Cadence Davila RN) Anesthesia Comments: Dr. Ceja notified of pt wanting epidural. (Cadence Davila RN) Datetime: 09/09/2016 05:45 Monitor Mode: External (Lorena Ellison, RN) Frequency (min): 2-4 (Lorena Ellison RN) Quality: Moderate (Lorena Ellison RN) Duration (sec): 90-120 (Lorena Ellison, RN) Resting Tone (Palpate): Relaxed (Lorena Ellison RN) Monitor Mode: External US (Lorena Ellison RN) FHR Baseline Rate : 125 (Lorena Scot, RN) Variability: Moderate 6-25 bpm (Lorena Franksel, RN) Accelerations: Prolonged (Lorena Franksel, RN) Decelerations: None (Lorena Ellison, RN) Communication Comments: Dr Currie on unit, notified of SVE (Lorena Ellison, RN) Datetime: 09/09/2016 05:44 Dilatation (cm): 6.5 (Lorena Ellison, RN) Effacement (%): 90 (Lorena Ellison, RN) Station: 0 (Lorena Ellison, RN) Exam by: Amanda Ellison RN (Lorena Ellison, RN) Vaginal Exam Comments: Pt reporting pressure with ctx (Lorena Ellison, RN) Datetime: 09/09/2016 05:32 IV/Blood Work: Labs Drawn (Cadence Davila RN) Datetime: 09/09/2016 05:30 Monitor Mode: External; Palpation (Lorena Scot, RN) Frequency (min): 1-4 (Lorena Scot, RN) Quality: Moderate (Lorena Scot, RN) Duration (sec): 60-100 (Lorena Scot, RN) Resting Tone (Palpate): Relaxed (Lorena Scot, RN) Monitor Mode: External US (Lorena Scot, RN) FHR Baseline Rate : 125 (Lorena Scot, RN) Variability: Moderate 6-25 bpm (Lorena Scot, RN) Accelerations: Prolonged (Lorena Scot, RN) Decelerations: None (Lorena Scot, RN) Datetime: 09/09/2016 05:29 NBP Sys/Ila/Mean (mmHg): 100 (QS system process) : 58 (QS system process) : 74 (QS system process) Pulse: 90 (QS system process) LaborFlag: Antepartum (QS system process) Datetime: 09/09/2016 05:25 Procedures: Consents Signed (Cadence Davila RN) Datetime: 09/09/2016 05:18 IV/Blood Work: IV Started; IV Bolus Started (Cadence Davila RN) Patient Care Comments: 18 g started in R forearm. (Cadence Davila RN) Datetime: 09/09/2016 05:15 Frequency (min): Q 3-5 (Cadence Davila RN) Quality: Moderate (Cadence Davila RN) Pain Scale: 5 (Cadence Davila RN) Pain Presence: Intermittent (Cadence Davila RN) Pain Type: Contraction (Cadence Davila RN) Pain Location: Abdomen; Back (Cadence Davila RN) Pain Goal: 2 (Cadence Davila RN) Pain Relief Measures: Comfort Measures (Cadence Davila RN) Pain Coping: Breathing Through Contractions; Requesting Pain Medication or Epidural; Crying; Writhing (Cadence Davila RN) Pain Assessment Comments: Anesthesia plan: epidural (Cadence Davila RN) Membrane Status: Ruptured (Cadence Davila RN) Membranes Ruptured Date/Time: 09/09/2016 04:20 (Cadence Davila RN) Membranes Rupture Method: Spontaneous (Cadence Davila RN) Amniotic Fluid Color: Clear (Cadence Davila RN) Amniotic Fluid Amount: Moderate (Cadence Davila RN) Amniotic Fluid Odor: Normal (Cadence Davila RN) Vaginal Bleeding: Normal Show (Cadence Davila RN) Level of Consciousness: Fully Conscious (Cadence Davila RN) DTR's/Clonus: DTRs 2+; No Clonus (Cadence Davila RN) Headache: Denies (Cadence Davila RN) Breath Sounds, Left: Clear and Equal (Cadence Davila RN) Breath Sounds, Right: Clear and Equal (Cadence Davila RN) Nausea/Vomiting: Denies (Cadence Davila RN) RUQ Epigastric Pain: Denies (Cadence Davila RN) Patient Position/Activity: Left Tilt (Cadence Davila RN) Comfort Measures: Breathing/Relaxation; Coaching; Family Support (Cadence Davila RN) Hygiene: Underpad Changed (Cadence Davila RN) Instructional Method: Verbal; Patient Instructed; Family/Support Person Instructed; Verbalized Understanding (Cadence Davila RN) Plan of Care: Plan of Care Discussed; Vaginal Delivery; Labor (Cadence Davila RN) Unit Routine: [place] to Room; Call Hernandez; Photography; Unit Personnel (Cadence Davila RN) LaborFlag: Antepartum (QS system process) Datetime: 09/09/2016 05:10 Communication Comments: Dr Currie on unit, report re: pt presence, SROM, SVE, pertinent hx. Orders for admission and epidural PRN (Lorena Ellison RN) Datetime: 09/09/2016 05:03 Dilatation (cm): 4.0 (Cadence Davila RN) Effacement (%): 90 (Cadence Davila RN) Station: -1 (Cadence Davila RN) Exam by: Amanda Ellison RN (Cadence Davila RN) Vaginal Bleeding: Normal Show (Cadence Davila RN) Cervix, Consistency: Soft (Cadence Davila RN) Cervix, Position: Anterior (Cadence Davila RN) Datetime: 09/09/2016 03:10 Antiemetics/Antacids: Vistaril (mg) @ (Annotations: 50) (Freida Lilly RN) Patient Care Comments: Discussed Term and signs and symptoms of when to return to office or hospital with patient and spouse; both patient and spouse verbalized understanding. (Freida Lilly RN) Datetime: 09/09/2016 02:57 Communication: RN Reviewed Strip; Provider Orders Received; Call/Page Placed to Provider (Freida Lilly RN) Provider Notified (Name): Dr. Currie (Freida Lilly RN) Communication Comments: Informed Dr. Currie of patient's complaint, history, vag exams, urine results and FHR/contractions; orders received for Vistiril 50 mg and discharge home. (Freida Lilly RN) Datetime: 09/09/2016 02:55 Dilatation (cm): 1.5 (Freida Lilly RN) Effacement (%): 60 (Freida Lilly RN) Station: -1 (Freida Lilly RN) Exam by: HUSSAIN Major (Freida Lilly RN) Cervix, Position: Posterior (Freida Lilly RN) Datetime: 09/09/2016 02:27 Patient Care Comments: Back in room sitting on Birthing ball; patient stated she doesn't feel well - feels nausea and dizzy. (Freida Lilly, HUSSAIN) Datetime: 09/09/2016 01:48 Monitor Mode: External; Palpation (Freida Lilly, RN) Frequency (min): 3.5-4 (Freida Lilly RN) Quality: Mild/Moderate (Freida Lilly, RN) Duration (sec): 60-100 (Freida Lilly RN) Resting Tone (Palpate): Relaxed (Freida Lilly, RN) Monitor Mode: External US (Freida Lilly, RN) FHR Baseline Rate : 125 (Freida Lilly, RN) Variability: Moderate 6-25 bpm (Freida Lilly, RN) Accelerations: 15X15 (Freida Lilly RN) Decelerations: None (Freida Lilly RN) Patient Care Comments: Patient off monitor to walk floor for an hour (Freida Lilly, RN) Datetime: 09/09/2016 01:34 NBP Sys/Ila/Mean (mmHg): 110 (QS system process) : 57 (QS system process) : 76 (QS system process) Pulse: 79 (QS system process) LaborFlag: Antepartum (QS system process) Datetime: 09/09/2016 01:30 Monitor Mode: External; Palpation (Freida , RN) Monitor Interventions for UA: [place] Adjusted (Freida , RN) Frequency (min): x1 (Freida , RN) Quality: Mild/Moderate (Freida Field, RN) Duration (sec): 60 (Freida Field, RN) Resting Tone (Palpate): Relaxed (Freida Field, RN) Monitor Mode: External US (Freida Field, RN) FHR Baseline Rate : 125 (Freida Field, RN) Variability: Moderate 6-25 bpm (Freida Field, RN) Accelerations: 15X15 (Freida Field, RN) Decelerations: None (Freida Field, RN) Datetime: 09/09/2016 01:29 Dilatation (cm): 1.0 (Freida Lilly RN) Effacement (%): 60 (Freida Lilly RN) Station: -1 (Freida Lilly RN) Exam by: HUSSAIN Major (Freida Lilly RN) Datetime: 09/09/2016 01:18 Frequency (min): q3 minutes (Ferida Lilly RN) Pain Scale: 4 (Freida Lilly RN) Pain Presence: Intermittent (Freida Lilly RN) Pain Type: Cramping; Contraction; Pressure (Freida Lilly RN) Pain Location: Abdomen; Back (Freida Lilly RN) Pain Goal: 0 (Freida Lilly RN) Pain Relief Measures: Comfort Measures (Freida Lilly RN) Pain Coping: Talking Through Contractions; Breathing Through Contractions (Freida Lilly RN) Vaginal Bleeding: None (Freida Lilly RN) Level of Consciousness: Fully Conscious (Freida Lilly RN) DTR's/Clonus: DTRs 1+; No Clonus (Freida Lilly RN) Headache: Denies (Freida Lilly RN) Breath Sounds, Left: Clear and Equal (Freida Lilly RN) Breath Sounds, Right: Clear and Equal (Freida Lilly RN) Nausea/Vomiting: Present (Freida Lilly RN) RUQ Epigastric Pain: Denies (Freida Lilly RN) Instructional Method: Verbal; Patient Instructed; Family/Support Person Instructed; Verbalized Understanding (Freida Lilly RN) Plan of Care: Plan of Care Discussed (Freida Lilly RN) Unit Routine: [place] to Room; Call Hernandez; Bed; Visiting Policy; Waiting Areas; Phone/Cell Phone Use; Unit Personnel; Handwashing; Flu/Illness Precautions; Monitoring; Safety/Fall Risk Prevention; Bathroom Privileges (Freida Lilly RN) LaborFlag: Antepartum (QS system process) Datetime: 09/09/2016 01:10 NBP Sys/Ila/Mean (mmHg): 95 (QS system process) : 53 (QS system process) : 65 (QS system process) Pulse: 89 (QS system process) LaborFlag: Antepartum (QS system process)
[2016-09-09] MEDS ORDERED: GLYCERIN/WITCH HAZEL LEAF 1 EACH MED..PAD TP PRN (09:10)
[2016-09-09] MEDS ORDERED: ACETAMINOPHEN 650 MG SUPP.RECT PR PRN (09:10)
[2016-09-09] MEDS ORDERED: ZOLPIDEM TARTRATE 5 MG TABLET PO PRN (09:10)
[2016-09-09] MEDS ORDERED: MEASLES,MUMPS&RUBELLA VACC/PF 0.5 ML VIAL SUBCUT PRN (09:10)
[2016-09-09] MEDS ORDERED: DIPHENHYDRAMINE HCL 25 MG CAPSULE PO PRN (09:10)
[2016-09-09] MEDS ORDERED: PSEUDOEPHEDRINE HCL 30 MG TABLET PO PRN (09:10)
[2016-09-09] MEDS ORDERED: NA PHOS,M-B/NA PHOS,DI-BA (ADULT) 133 ML ENEMA PR PRN (09:10)
[2016-09-09] MEDS ORDERED: PROMETHAZINE HCL 25 MG SUPP.RECT PR PRN (09:10)
[2016-09-09] MEDS ORDERED: PROMETHAZINE HCL INJ 25 MG/1 ML VIAL IV PRN (09:10)
[2016-09-09] MEDS ORDERED: DIPH/PERTUSS(ACELL)/TETANUS VAC/PF 0.5 ML SYR (>=10YO) IM PRN (09:10)
[2016-09-09] MEDS ORDERED: PROMETHAZINE HCL 25 MG TABLET PO PRN (09:10)
[2016-09-09] MEDS ORDERED: MAGNESIUM HYDROXIDE SUSP 30 ML UDCUP PO PRN (09:10)
[2016-09-09] MEDS ORDERED: OXYTOCIN/NORMAL SALINE 1,000 ML IV PRN (09:10)
[2016-09-09] MEDS ORDERED: DIBUCAINE 1% OINTMENT 28 GM TP PRN (09:10)
[2016-09-09] MEDS ORDERED: BENZOCAINE/MENTHOL AEROSOL SPRAY 56 ML TOP PRN (09:10)
--- NOTE | 2016-09-09 10:50 | Delivery Summary ---
Del Sum A-C Datetime Report Generated by CPN: 09/09/2016 10:50 ADMISSION DATA Chief Complaint: Uterine Contractions; Suspected Ruptured Membranes Chief Complaint Comments: nausea/vomiting/diarrhea x 3 days Indication for Induction: Not Applicable Admission Impression: Term, Intrauterine ; Active Labor; Ruptured Membranes Admit Provider Comments: Term Srom 0430 with increasing ctx. gbs neg. for epidural prn DELIVERY PERSONNEL Delivery Doctor:: Sonia Nelson CNM Nurse Slitter Processed Film Certified:: Sonia Nelson CNM Labor and Delivery Nurse:: Cindy Brar RNlearning support teacher Nurse:: ZOHAIB Rose Nursery Nurse:: Yolanda Mott RN Crop Or Livestock Tenant Farmer/WINE MERCHANT: Laurie Barone CST Crop Or Livestock Tenant Farmer/WINE MERCHANT: Catrachita Cabello CNA II MATERNAL INFORMATION Delivery Anesthesia: Epidural Medications After Delivery: Pitocin Bolus-Please Comment Meds After Delivery Comment: Pitocin 20 units in 1000 ml NSS open for bolus Estimated Blood Loss (ml): 400 Maternal Complications: Other Other Maternal Complications: maternal anemia Provider Comments: poor maternal effort bed prepared for delivery male delivered HEBERT infant to abdomen tactile stimulation elicits spontaneous cry cord clamped and cut 3vc cord blood obtained lower uterine segment cytotec 1000 mcg per rectum fundus firming EBL 400 cc hemostasis achieved pt bonding well with LABOR SUMMARY EDC: 09/07/2016 00:00 No. Babies in Womb: 1 Attempted: No Labor Anesthesia: Epidural LABOR INFORMATION Reason for Induction: Not Applicable Onset of Labor: 09/08/2016 21:00 Complete Dilatation: 09/09/2016 07:06 Oxytocin: N/A Group B Beta Strep: neg Steroids Given: None Reason Steroids Not Administered: Not Applicable MEMBRANES Membranes Rupture Method: Spontaneous Rupture of Membranes: 09/09/2016 04:20 Length of Rupture (hr): 4.35 Amniotic Fluid Color: Clear Amniotic Fluid Amount: Moderate Amniotic Fluid Odor: Normal STAGES OF LABOR Stage 1 hr: 10 Stage 1 min: 6 Stage 2 hr: 1 Stage 2 min: 35 Stage 3 hr: 0 Stage 3 min: 3 Total Time in Labor hr: 11 Total Time in Labor min: 44 VAGINAL DELIVERY Episiotomy: None Laceration Extension: N/A Laceration Type: None Laceration Repair: Not Applicable Sponge Count Correct: N/A CSECTION DELIVERY Primary Indication: N/A Secondary Indication: N/A CSection Incidence: N/A Labor: N/A Elective: N/A CSection Incision: N/A BABY A INFORMATION Delivery Date/Time: 09/09/2016 08:41 Method of Delivery: Vaginal Born in Route : No : N/A Forceps: Outlet Vacuum Extraction: N/A Shoulder Dystocia : No PRESENTATION/POSITION BABY A Presentation: Cephalic Cephalic Presentation: Vertex Vertex Position: Left Occipital Anterior Breech Presentation: N/A PLACENTA INFORMATION BABY A Placenta Delivery Time : 09/09/2016 08:44 Placenta Method of Delivery: Spontaneous Placenta Status: Delivered SCORES BABY A Heart Rate 1 min: >100 bpm Resp Effort 1 min: Good Cry Reflex Irritability 1 min: Cough or Sneeze or Pulls Away Muscle Tone 1 min: Active Motion Color 1 min: Body Parrish, Extremities Blue Resuscitation Effort 1 min: Tactile Stimulation SCORE 1 MIN: 9 Heart Rate 5 min: >100 bpm Resp Effort 5 min: Good Cry Reflex Irritability 5 min: Cough or Sneeze or Pulls Away Muscle Tone 5 min: Active Motion Color 5 min: Body Parrish, Extremities Blue Resuscitation Effort 5 min: N/A SCORE 5 MIN: 9 Resuscitation Effort 10 min: N/A INFANT INFORMATION BABY A Gestational Age at Delivery: 40.2 Gestational Status: Full Term- 39- 40.6 Weeks Outcome : Liveborn Condition : Stable Sex: Male IDENTIFICATION BABY A Verification Date/Time: 09/09/2016 09:01 ID Band Number: [id number] Mother's Name Verified: Yes RN Verifying Infant: Jamila Gale RNC Additional Verifying Personnel: Alyse Ragland RN WEIGHT/LENGTH BABY A Infant Birthweight (gm): 3790 Weight (lb): 8 Infant Weight (oz): 6 Length (in): 19.50 Length (cm): 49.53 CORD INFORMATION BABY A No. Cord Vessels: 3 Nuchal Cord : N/A Cord Blood Taken: Yes-For Eval (Mom's Blood Type - or O+) Infant Suction: None ASSESSMENT BABY A Complications: None Physical Findings at Delivery: Within Normal Limits Respirations: Appears Normal Skin to Skin: Yes Skin to Skin Time (min): 60 Thiokol Operator/ALS Called : No Infant Care By: Donald Mott RN Transferred To: Remains with Mother BABY B INFORMATION : N/A SIGNATURES Assignment: Diane Solis MD Signature: with User ID: Grace : with User ID: Grace
--- NOTE | 2016-09-09 11:27 | Admission Physical ---
Datetime Report Generated by CPN: 09/09/2016 11:26 CURRENT ADMISSION Hx Assessment: The History has been Reviewed and is Current Chief Complaint: Uterine Contractions; Suspected Ruptured Membranes Chief Complaint Other: nausea/vomiting/diarrhea x 3 days Indication for Induction: Not Applicable Admit Plan: Admit to Unit; Initiate Labor Protocol Admit Plan- Other: fluid hydration, antiemetics, antidiarrheals ALLERGIES Medication Allergies: Yes Medication Allergies: morphine/[place]/Pruritis (09/09/2016) Latex: No Latex Allergies Food Allergies: None Environmental Allergies: None OBSTETRICAL HISTORY EDC: 09/07/2016 00:00 : 2 Para: 1 Term: 1 : 0 SAB: 0 IAB: 0 Livin Gestational Diabetes: No Rh Sensitization: No Incompetent Cervix: No TANNER: No Infertility: No ART Treatment: No Uterine Anomaly: No IUGR: No Hx Previous C/S: No Macrosomia: No Hx Loss/Stillborn: No PIH: No Hx : No Placenta Previa/Abruption: No Depression/PP Depression: No PTL/PROM: No Post Hemorrhage: No Current Procedures: Ultrasound Obstetrical History Comments: 11/24/10 G2 - current - failed 1 hr gtt SEE RECORDS Alcohol: No Marijuana : No Cocaine: No Other Illicit Drugs: No Cigarettes: Never Smoker. 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 Hospitalized for childbirth INFECTIOUS HISTORY Gonorrhea: No Genital Herpes: No Chlamydia: No Tuberculosis: No Syphilis: No Hepatitis: No HIV/AIDS Exposure: No Rash or Viral Illness: No HPV: No PHYSICAL EXAM General: Normal HEENT: Deferred Neurologic: Deferred Thyroid: Deferred Heart: Normal Lungs: Normal Breast: Deferred Back: Deferred Abdomen: Normal Genitourinary Exam: Normal Extremities: Normal DTRs: Normal Pelvic Type: Adequate Physical Exam Comments: appears ill Vital Signs: Reviewed; Within Normal Limits VAGINAL EXAM Contraction Comments: q3-5 MEMBRANES Membranes: Ruptured Amniotic Fluid Color: Clear FETUS A EGA: 40.2 Monitoring: External US FHR- Baseline: 120 Variability: Moderate 6-25bpm Accelerations: 15X15 Decelerations: None FHR Category: Category I FHR Comments: appropriate for gestational age Estimated Weight (gm): 1600 Admit Comment: Term Srom 0430 with increasing ctx. gbs neg. for epidural prn PLANS FOR LABOR AND DELIVERY Labor and Delivery: Other, Specify Pain Management: Epidural Feeding Preference: Formula Benefit of Breast Feed Discussed: Yes Circumcision: Yes INFORMED CONSENT Signature: with User ID: [email or web address]
--- NOTE | 2016-09-09 12:01 | L&D Flow Sheet ---
LD Flowsheet Datetime Report Generated by CPN: 09/09/2016 12:00 Datetime: 09/09/2016 10:44 NBP Sys/Ila/Mean (mmHg): 113 (QS system process) : 65 (QS system process) : 82 (QS system process) Pulse: 83 (QS system process) Respirations: 17 (Cindy Maykel, RNC) Pain Pain Scale: 0 (Cindy Maykel, RNC) Datetime: 09/09/2016 10:29 Vital Signs Stage of : Recovery (Cindy Maykel, RNC) NBP Sys/Ila/Mean (mmHg): 112 (QS system process) : 55 (QS system process) : 78 (QS system process) Pulse: 90 (QS system process) Datetime: 09/09/2016 10:14 NBP Sys/Ila/Mean (mmHg): 115 (QS system process) : 57 (QS system process) : 79 (QS system process) Pulse: 81 (QS system process) Datetime: 09/09/2016 09:59 Vital Signs Stage of : Recovery (Cindy Maykel, RNC) NBP Sys/Ila/Mean (mmHg): 113 (QS system process) : 62 (QS system process) : 82 (QS system process) Pulse: 75 (QS system process) Respirations: 17 (Cindy Maykel, RNC) Datetime: 09/09/2016 09:44 Vital Signs Stage of : Recovery (Cindy Brar [facility]) NBP Sys/Ila/Mean (mmHg): 112 (QS system process) : 61 (QS system process) : 81 (QS system process) Pulse: 78 (QS system process) Respirations: 16 (Cindy Brar [facility]) Datetime: 09/09/2016 09:30 Vital Signs Stage of : Recovery (Cindy Brar [facility]) NBP Sys/Ila/Mean (mmHg): 112 (QS system process) : 49 (QS system process) : 71 (QS system process) Pulse: 80 (QS system process) Respirations: 17 (Cindy Maykel, RNC) Datetime: 09/09/2016 09:15 Vital Signs Stage of : Recovery (Cindy Maykel, RNC) Respirations: 16 (Cindy Maykel, RNC) Datetime: 09/09/2016 08:59 Vital Signs [facility] : [facility] N[facility] Sys/Ila/Mean (mmHg): 107 (QS system process) : 55 (QS system process) : 73 (QS system process) Pulse: 89 (QS system process) Respirations: 17 ([facility] Temperature (F): 98.2 ([facility] Temperature (C): 36.8 (QS system process) Temperature Route: Oral ([facility] Pain Pain Scale: 0 ([facility] Datetime: 09/09/2016 08:47 Medications Medication Comments: cytotec 1000 mcg rectally placed by CNM (Cindy Maykel, RNC) Datetime: 09/09/2016 08:41 Stage 2 Comments: delivery liveborn placed on maternal abdomen, dried and stimulated with spontaneous respirations and lusty cry noted. Cord clamped and cut after delay. Placed skin to skin on maternal chest (Jamila Camp, RNC) Datetime: 09/09/2016 08:40 Pushing Progress: with Pushing (Jamila Camp, RNC) Datetime: 09/09/2016 08:38 Pushing Progress: Descent with Pushing; Presenting Part Visible (Cindy Maykel, RNC) Datetime: 09/09/2016 08:34 Pushing Position: Pushing Lithotomy (Cindy Maykel, RNC) Preparation for Delivery: Setup for Delivery (Cindy Maykel, RNC) Datetime: 09/09/2016 08:27 Pushing Position: Pushing with Contractions (Jamila Camp, RNC) Communication Communication: Provider at Bedside (Jamila Camp, RNC) Datetime: 09/09/2016 08:25 Comments: fse off, external u/s applied (Cindy Maykel, RNC) Patient Care Oxygen Amount : 10 (Cindy Maykel, RNC) Oxygen Method: Non-Rebreather (Cindy Maykel, RNC) Datetime: 09/09/2016 08:23 Stage 2 Pushing: Coached on Pushing (ZOHAIB Atwood) Pushing Position: Pushing with Contractions (ZOHAIB Atwood) Pushing Progress: Descent with Pushing (ZOHAIB Atwood) Stage 2 Comments: A Emmel CNM at bedside coaching and pushing with patient (Cindy Brar RN) Communication Communication: Provider at Bedside (Cindy Brar RN) Datetime: 09/09/2016 08:19 Pulse: 80 (QS system process) SpO2 (%): 98 (QS system process) LaborFlag: Antepartum (QS system process) Datetime: 09/09/2016 08:15 NBP Sys/Ila/Mean (mmHg): 82 (QS system process) : 53 (QS system process) : 62 (QS system process) Pulse: 75 (QS system process) LaborFlag: Antepartum (QS system process) Datetime: 09/09/2016 08:14 Pulse: 78 (QS system process) SpO2 (%): 99 (QS system process) LaborFlag: Antepartum (QS system process) Datetime: 09/09/2016 08:09 Pulse: 91 (QS system process) SpO2 (%): 99 (QS system process) LaborFlag: Antepartum (QS system process) Datetime: 09/09/2016 08:07 Provider Reviewed Strip: Yes (Cindy Brar, RNC) Communication Communication: RN at Bedside; Provider at Bedside (Cindy Brar, RNC) Communication Comments: A Emmel CNM at bedside for delivery (Cindy Brar, RNC) Datetime: 09/09/2016 08:01 Assessment A Actions for Decelerations: Side to Side; Trendelenberg; Sterile Vaginal Exam; Provider Notified (Cindy Brar RNC) Procedures: Sterile Vag Exam (Cindy Brar RNC) Communication Communication: RN at Bedside; RN Reviewed Strip (ZOHAIB Atwood)
[2016-09-09] MEDS: DOCUSATE SODIUM 100 MG CAPSULE PO SCH ×2 (12:15→17:22)
[2016-09-09] MEDS: PRENATAL VITAMIN W-O CA NO5/FE FUMARATE/FA CAPSULE PO SCH (12:15)
[2016-09-09] MEDS: SENNOSIDES/DOCUSATE 8.6-50 MG 1 EACH TABLET PO SCH (12:15)
[2016-09-09] MEDS: FERROUS SULFATE 325 MG TABLET PO SCH ×2 (12:15→17:22)
[2016-09-09] MEDS: FAMOTIDINE 20 MG TABLET PO SCH ×2 (12:15→22:46)
[2016-09-09] MEDS: IBUPROFEN 800 MG TABLET PO SCH ×2 (13:26→22:40)
--- NOTE | 2016-09-09 19:01 | L&D Flow Sheet ---
LD Flowsheet Datetime Report Generated by CPN: 09/09/2016 19:00 Datetime: 09/09/2016 10:44 NBP Sys/Ila/Mean (mmHg): 113 (QS system process) : 65 (QS system process) : 82 (QS system process) Pulse: 83 (QS system process) Respirations: 17 (Cindy Maykel, RNC) Pain Pain Scale: 0 (Cindy Maykel, RNC) Datetime: 09/09/2016 10:29 Vital Signs Stage of : Recovery (Cindy Maykel, RNC) NBP Sys/Ila/Mean (mmHg): 112 (QS system process) : 55 (QS system process) : 78 (QS system process) Pulse: 90 (QS system process) Datetime: 09/09/2016 10:14 NBP Sys/Ila/Mean (mmHg): 115 (QS system process) : 57 (QS system process) : 79 (QS system process) Pulse: 81 (QS system process) Datetime: 09/09/2016 09:59 Vital Signs Stage of : Recovery (Cindy Maykel, RNC) NBP Sys/Ila/Mean (mmHg): 113 (QS system process) : 62 (QS system process) : 82 (QS system process) Pulse: 75 (QS system process) Respirations: 17 (Cindy Maykel, RNC) Datetime: 09/09/2016 09:44 Vital Signs Stage of : Recovery (Cindy Brar [facility]) NBP Sys/Ila/Mean (mmHg): 112 (QS system process) : 61 (QS system process) : 81 (QS system process) Pulse: 78 (QS system process) Respirations: 16 (Cindy Brar [facility]) Datetime: 09/09/2016 09:30 Vital Signs Stage of : Recovery (Cindy Brar [facility]) NBP Sys/Ila/Mean (mmHg): 112 (QS system process) : 49 (QS system process) : 71 (QS system process) Pulse: 80 (QS system process) Respirations: 17 (Cindy Maykel, RNC) Datetime: 09/09/2016 09:15 Vital Signs Stage of : Recovery (Cindy Maykel, RNC) Respirations: 16 (Cindy Maykel, RNC) Datetime: 09/09/2016 08:59 Vital Signs Stage of : [facility] NBP Sys/Ila/Mean (mmHg): 107 (QS system process) : 55 (QS system process) : 73 (QS system process) Pulse: 89 (QS system process) Respirations: 17 ([facility] Temperature (F): 98.2 ([facility] Temperature (C): 36.8 (QS system process) Temperature Route: Oral ([facility] Pain Pain Scale: 0 ([facility] Datetime: 09/09/2016 08:47 Medications Medication Comments: cytotec 1000 mcg rectally placed by CNM (Cindy Maykel, RNC) Datetime: 09/09/2016 08:41 Stage 2 Comments: delivery liveborn placed on maternal abdomen, dried and stimulated with spontaneous respirations and lusty cry noted. Cord clamped and cut after delay. Placed skin to skin on maternal chest (Jamila Camp, RNC) Datetime: 09/09/2016 08:40 Pushing Progress: with Pushing (Jamila Camp, RNC) Datetime: 09/09/2016 08:38 Pushing Progress: Descent with Pushing; Presenting Part Visible (Cindy Maykel, RNC) Datetime: 09/09/2016 08:34 Pushing Position: Pushing Lithotomy (Cindy Maykel, RNC) Preparation for Delivery: Setup for Delivery (Cindy Maykel, RNC) Datetime: 09/09/2016 08:27 Pushing Position: Pushing with Contractions (Jamila Camp, RNC) Communication Communication: Provider at Bedside (Jamila Camp, RNC) Datetime: 09/09/2016 08:25 Comments: fse off, external u/s applied (Cindy Maykel, RNC) Patient Care Oxygen Amount : 10 (Cindy Maykel, RNC) Oxygen Method: Non-Rebreather (Cindy Maykel, RNC) Datetime: 09/09/2016 08:23 Stage 2 Pushing: Coached on Pushing (ZOHAIB Atwood) Pushing Position: Pushing with Contractions (ZOHAIB Atwood) Pushing Progress: Descent with Pushing (ZOHAIB Atwood) Stage 2 Comments: A Emmel CNM at bedside coaching and pushing with patient (Cindy Brar RN) Communication Communication: Provider at Bedside (Cindy Brar RN) Datetime: 09/09/2016 08:19 Pulse: 80 (QS system process) SpO2 (%): 98 (QS system process) LaborFlag: Antepartum (QS system process) Datetime: 09/09/2016 08:15 NBP Sys/Ila/Mean (mmHg): 82 (QS system process) : 53 (QS system process) : 62 (QS system process) Pulse: 75 (QS system process) LaborFlag: Antepartum (QS system process) Datetime: 09/09/2016 08:14 Pulse: 78 (QS system process) SpO2 (%): 99 (QS system process) LaborFlag: Antepartum (QS system process) Datetime: 09/09/2016 08:09 Pulse: 91 (QS system process) SpO2 (%): 99 (QS system process) LaborFlag: Antepartum (QS system process) Datetime: 09/09/2016 08:07 Provider Reviewed Strip: Yes (Cindy Brar, RNC) Communication Communication: RN at Bedside; Provider at Bedside (Cindy Brar, RNC) Communication Comments: A Emmel CNM at bedside for delivery (Cindy Brar, RNC) Datetime: 09/09/2016 08:01 Actions for Decelerations: Side to Side; Trendelenberg; Sterile Vaginal Exam; Provider Notified (Cindy Brar, RNC) Procedures: Sterile Vag Exam (Cindy Brar, RNC) Communication Communication: RN at Bedside; RN Reviewed Strip (Cindyzoila Brar, RNC) Datetime: 09/09/2016 07:59 NBP Sys/Ila/Mean (mmHg): 93 (QS system process) : 61 (QS system process) : 72 (QS system process) Pulse: 77 (QS system process) LaborFlag: Antepartum (QS system process) Datetime: 09/09/2016 07:45 NBP Sys/Ila/Mean (mmHg): 98 (QS system process) : 65 (QS system process) : 74 (QS system process) Pulse: 86 (QS system process) LaborFlag: Antepartum (QS system process) Datetime: 09/09/2016 07:25 Actions for Decelerations: Hands and Knees; Oxygen Applied; IV Bolus; Provider Notified (Cindy Brar, RNC) Datetime: 09/09/2016 07:23 Actions for Decelerations: Side to Side; Oxygen Applied; IV Bolus (Cindy Maykel, RNC) Datetime: 09/09/2016 07:15 NBP Sys/Ila/Mean (mmHg): 111 (QS system process) : 61 (QS system process) : 77 (QS system process) Pulse: 122 (QS system process) Uterine Activity Monitor Mode: External (Lorena Scot, RN) Frequency (min): 2-3 (Lorena Scot, RN) Quality: Moderate (Lorena Scot, RN) Duration (sec): 60-120 (Lorena Scot, RN) Resting Tone (Palpate): Relaxed (Lorena Scot, RN) Assessment A Monitor Mode: Internal Scalp Electrode (Lorena Scot, RN) FHR Baseline Rate : 110 (Lorena Scot, RN) Variability: Moderate 6-25 bpm (Lorena Scot, RN) Accelerations: 10X10 (Lorena Scot, RN) Decelerations: Late (Lorena Scot, RN) LaborFlag: Antepartum (QS system process) Datetime: 09/09/2016 07:13 Communication Communication: Report Given to @ K Maykel RNC (Lorena Scot, RN) Communication Comments: care relinquished (Lorena Scot, RN) Datetime: 09/09/2016 07:11 Stage 2 Pushing: Coached on Pushing (Cadence Giovanni, RN) Pushing Position: Pushing with Contractions (Cadence Giovanni, RN) Preparation for Delivery: Setup for Delivery (Cadence Giovanni, RN) Stage 2 Comments: RN and provider to remain at bedside throughout second stage continuously assessing fhr while pushingwith contractions (Cadence Giovanni, RN) Communication Communication: Provider at Bedside (Cadence Giovanni, RN) Datetime: 09/09/2016 07:10 Teaching Instructional Method: Demo; Verbal; Patient Instructed; Family/Support Person Instructed; Verbalized Understanding (Cadence Giovanni, RN) Labor/Induction: Pushing Methods (Cadence Giovanni, RN) Datetime: 09/09/2016 07:09 I/O Interventions: [place] Discontinued (Cadence Giovanni, RN) Datetime: 09/09/2016 07:06 Actions for Decelerations: Sterile Vaginal Exam (Cadence Giovanni, RN) Vaginal Exam Dilatation (cm): 10.0 (Cadence Giovanni, RN) Effacement (%): 100 (Cadence Giovanni, RN) Station: 1 (Cadence Giovanni, RN) Exam by: K Scot RN (Cadence Giovanni, RN) Datetime: 09/09/2016 07:04 Actions for Decelerations: Side to Side; Oxygen Applied (Cadence Giovanni, RN) Oxygen Method: Non-Rebreather (Cadence Giovanni, RN) Datetime: 09/09/2016 07:01 Patient Care Comments: Pt turned from L side to R side. (Cadence Giovanni, RN) Datetime: 09/09/2016 07:00 NBP Sys/Ila/Mean (mmHg): 107 (QS system process) : 56 (QS system process) : 75 (QS system process) Pulse: 71 (QS system process) Uterine Activity Monitor Mode: External (Lorena Scot, RN) Frequency (min): 2-4 (Lorena Scot, RN) Quality: Moderate (Lorena Scot, RN) Duration (sec): 60-110 (Lorena Scot, RN) Resting Tone (Palpate): Relaxed (Lorena Scot, RN) Assessment A Monitor Mode: Internal Scalp Electrode (Lorena Ellison RN) FHR Baseline Rate : 115 (Lorena Ellison RN) Variability: Moderate 6-25 bpm (Lorena Scot RN) Accelerations: None (Lorena Scot, RN) Decelerations: Late (Lorena Ellison RN) LaborFlag: Antepartum (QS system process)
[2016-09-10] MEDS: IBUPROFEN 800 MG TABLET PO SCH ×3 (05:09→21:07)
--- NOTE | 2016-09-10 06:12 | L&D General Admission ---
General Admit Datetime Report Generated by CPN: 09/10/2016 06:00 INFORMATION Patient Age: 30 (07/11/2016 04:45:QS system process) EDC: 09/07/2016 00:00 (07/11/2016 04:49:Mahogany Valerio RN) : 2 (07/11/2016 04:49:Yarely Martinez RN) Para: 1 (09/09/2016 03:20:Freida Lilly RN) Term: 1 (07/11/2016 04:49:Yarely Martinez RN) : 0 (07/11/2016 04:49:Yarely Martinez RN) Spontaneous Abortions: 0 (07/11/2016 04:49:Yarely Martinez RN) Induced Abortions: 0 (07/11/2016 04:49:Yarely Martinez RN) Livin (07/11/2016 04:49:Yarely Martinez RN) Baby, Number in Womb: 1 (09/09/2016 03:20:Freida Lilly RN) CARE Primary Graves Registration Specialist: [facility] (07/11/2016 04:49:Annel Chambers RN) Month of 1st Visit: 01/2016 (07/11/2016 04:49:Annel Chambers RN) Adequate Care: No (07/11/2016 04:49:Annel Chambers RN) Height (in): 65 (07/11/2016 06:06:QS system process) ALLERGIES Medication Allergy: Yes (07/11/2016 04:49:Yarely Martinez RN) Medication Allergies: morphine/NM/Pruritis (09/09/2016) (09/09/2016 01:12:QS system process) Latex Allergy: No Latex Allergies (07/11/2016 04:49:Yarely Martinez RN) Food Allergies: None (07/11/2016 04:49:Alyse Brar RN) Environmental Allergies: None (07/11/2016 04:49:Alyse Brar RN) COMMUNICATION Primary Language: Ugandan (07/11/2016 04:49:Annel Chambers RN) Medical Tx Preferred Language: Ugandan (07/11/2016 04:49:Yarely Martinez RN) Ugandan Communication Ability: Speaks Ugandan; Reads Ugandan (07/11/2016 04:49:Yarely Martinez RN) DEMOGRAPHICS Address: [address] [place] [id number] (07/11/2016 04:46:QS system process) Zipcode: [id number] (07/11/2016 04:46:QS system process) Home (07/11/2016 04:45:QS system process) Work (07/11/2016 04:45:QS system process) N: [phone] (07/11/2016 04:45:QS system process) Next of Kin Name: JAMI GO (07/11/2016 04:45:QS system process) Next of Kin (07/11/2016 04:45:QS system process) Next of Kin Relationship: SPO (07/11/2016 04:45:QS system process) Date of : 1985 (07/11/2016 04:45:QS system process) Marital Status: (07/11/2016 04:45:QS system process) Sex: Female (07/11/2016 04:45:QS system process) 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 [id number] (07/11/2016 04:49:Alyse Brar RN) Marijuana: No (07/11/2016 04:49:Alyse Brar RN) Cocaine: No (07/11/2016 04:49:Alyse Brar RN) Other Illicit Drugs: No (07/11/2016 04:49:Alyse Brar RN) VACCINE HISTORY Influenza Vaccine: Yes (07/11/2016 04:49:Annel Chambers RN) Influenza Date: 06/18/2016 (07/11/2016 04:49:Annel Chambers RN) Pneumococcal Vaccine: No (07/11/2016 04:49:Alyse Brar RN) Tetanus Vaccine: Yes (07/11/2016 04:49:Annel Chambers RN) Tetanus Date: 06/18/2016 (07/11/2016 04:49:Annel Chambers RN) Tdap Vaccine: Yes (07/11/2016 04:49:ZOHAIB Rose) Tdap Date: 06/18/2016 (07/11/2016 04:49:ZOHAIB Rose) Hepatitis B Vaccine: Yes (07/11/2016 04:49:Alyse Brar RN) Senior It Project Manager: [facility] (07/11/2016 04:49:Freida Lilly RN) Feeding Preference: Formula (07/11/2016 04:49:Alyse Brar RN) Benefit of Breast Feed Discussed: Yes (07/11/2016 04:49:ZOHAIB Rose) Circumcision: Yes (07/11/2016 04:49:Freida Lilly RN) Classes Attended: Nubia (07/11/2016 04:49:Freida Lilly RN) Tubal Ligation: No (07/11/2016 04:49:Alyse Brar RN) Tubal Authorization Signed: N/A (07/11/2016 04:49:Alyse Brar RN) Consent: N/A (07/11/2016 04:49:Alyse Brar RN) Consent Signed: N/A (07/11/2016 04:49:Alyse Brar RN) Pain Management Plans: Epidural (07/11/2016 04:49:Freida Lilly RN) Plans for Labor and Delivery: Other, Specify (07/11/2016 04:49:Alyse Brar, RN) Other Labor and Delivery Plans: 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 (07/11/2016 04:49:Alyse Brar, HUSSAIN) Support Person: Jami Go (07/11/2016 04:49:Alyse Brar RN) Support Person Relationship: (07/11/2016 04:49:Alyse Brar, RN) Cultural/Spritual Practice: Nubia (07/11/2016 04:49:Alyse Brar, RN) Spir/Cult Dietary Needs: Nubia (07/11/2016 04:49:Freida Lilly RN) LIVING SITUATION/DISCHARGE PLAN Living Arrangements: House (07/11/2016 04:49:Alyse Brar RN) Adequate Access to:: Electric; Heat; Refrigeration; Plumbing/Running water; Phone; Transportation (07/11/2016 04:49:Alyse Brar RN) WIC Program: No (07/11/2016 04:49:Alyse Brar RN) Discharge Supervisor Pre Wave Person: Jami Go (07/11/2016 04:49:Alyse Brar RN) Person to Help after Discharge: Jami Go (07/11/2016 04:49:Alyse Brar RN) Currently Using Commun Resources: No (07/11/2016 04:49:Alyse Brar RN) Outside Agency/Back Office Medical Assistant: No (07/11/2016 04:49:Alsye Brar RN) Car Seat for Discharge: Yes (07/11/2016 04:49:Alyse Brar RN) Adoption Requested: No (07/11/2016 04:49:Alyse Brar RN) Pt Contact w/ Post : N/A (07/11/2016 04:49:Alyse Brar RN) LABS Blood Type: O Negative (07/11/2016 04:49:Annel Chambers RN) Rho(G) this : Yes (07/11/2016 04:49:Annel Chambers RN) Date Rho(G) Given: 06/18/2016 (07/11/2016 04:49:Annel Chambers RN) Hemoglobin: 8.8 L (09/09/2016 05:33:QS system process) Hematocrit: 28.2 L (09/09/2016 05:33:QS system process) MCV: 79 L (09/09/2016 05:33:QS system process) Group Beta Strep: neg (07/11/2016 04:49:Christiano Soliz RN) Gonorrhea: Negative (07/11/2016 04:49:Annel Chambers RN) Chlamydia: Negative (07/11/2016 04:49:Annel Chambers RN) RPR/VDRL: Nonreactive (07/11/2016 04:49:Annel Chambers RN) HIV Exposure Test: Negative (07/11/2016 04:49:Annel Chambers RN) Hepatitis B: Negative (07/11/2016 04:49:Annel Chambers RN) Rubella: Immune (07/11/2016 04:49:Annel Chambers RN) OB/PREVIOUS HISTORY Previous Procedures: Ultrasound (07/11/2016 04:49:Alyse Brar RN) Current Procedures: Ultrasound (07/11/2016 04:49:Alyse Brar RN) History of Previous : No (07/11/2016 04:49:Alyse Brar RN) History of Gestational Diabetes: No (07/11/2016 04:49:Alyse Brar RN) History of PIH: No (07/11/2016 04:49:Alyse Brar RN) History of Incompetent Cervix: No (07/11/2016 04:49:Alyse Brar RN) History of Placenta Previa/Abrup: No (07/11/2016 04:49:Alyse Brar RN) History of Macrosomia: No (07/11/2016 04:49:Alyse Brar RN) History of IUGR: No (07/11/2016 04:49:Alyse Brar RN) History of Hemorrhage: No (07/11/2016 04:49:Alyse Brar RN) History of Loss/Stillborn: No (07/11/2016 04:49:Alyse Brar RN) History of : No (07/11/2016 04:49:Alyse Brar RN) History of D (Rh) Sensitization: No (07/11/2016 04:49:Alyse Brar RN) History Recurrent Loss/Stillborn: No (07/11/2016 04:49:Alyse Brar RN) History Depression/PP Depression: No (07/11/2016 04:49:Alyse Brar RN) History of Uterine Anomaly/TANNER: No (07/11/2016 04:49:Alyse Brar RN) History of Infertility: No (07/11/2016 04:49:Alyse Brar RN) History of ART Treatment: No (07/11/2016 04:49:Alyse Brar RN) History of TANNER: No (07/11/2016 04:49:Alyse Brar RN) Comments Obstetrical History: G1 - 11/24/10 G2 - current - failed 1 hr gtt (07/11/2016 04:49:Annel Chambers RN) MEDICAL HISTORY Med Hx Diabetes: No (07/11/2016 04:49:Alyse Brar RN) Med Hx Hypertension: No (07/11/2016 04:49:Alyse Brar RN) Med Hx Heart Disease: No (07/11/2016 04:49:Alyse Brar RN) Med Hx Autoimmune Disorder: No (07/11/2016 04:49:Alyse Brar RN) Med Hx Kidney Disease/UTI: No (07/11/2016 04:49:Alyse Brar RN) Med Hx Neurologic/Epilepsy: No (07/11/2016 04:49:Alyse Brar RN) Med Hx Psychiatric Disorders: No (07/11/2016 04:49:Alyse Brar RN) Med Hx Hepatitis/Liver Disease: No (07/11/2016 04:49:Alyse Brra RN) Med Hx Varicosities/Phlebitis: No (07/11/2016 04:49:Alyse Brar RN) Med Hx Thyroid Dysfunction: No (07/11/2016 04:49:Alyse Brar RN) Med Hx Trauma/Violence: No (07/11/2016 04:49:Alyse Brar RN) Med Hx Blood Transfusion: No (07/11/2016 04:49:Alyse Brar RN) Med Hx Pulmonary (Asthma,TB): No (07/11/2016 04:49:Alyse Brar RN) Med Hx Breast: No (07/11/2016 04:49:Alyse Brar RN) Med Hx CRUDE UNIT OPERATOR Surgery: No (07/11/2016 04:49:Alyse Brar RN) Med Hx Hospitalization/Surgery: Yes (07/11/2016 04:49:Alyse Brar RN) Med Hx Anesthetic Complications: No (07/11/2016 04:49:Alyse Brar RN) Med Hx Abnormal Pap Smear: No (07/11/2016 04:49:Alyse Brar RN) Other Medical Diseases: Yes (07/11/2016 04:49:Alyse Brar RN) Med Hx Significant Family Hx: No (07/11/2016 04:49:Alyse Brar RN) Details of Med/Surg Hx: Hx of Prolactinoma - unable to breastfeed Hospitalized for childbirth (07/11/2016 04:49:Alyse Brar RN) INFECTIOUS HISTORY Inf Hx Gonorrhea: No (07/11/2016 04:49:Alyse Brar RN) Inf Hx Chlamydia: No (07/11/2016 04:49:Alyse Brar RN) Inf Hx Syphilis: No (07/11/2016 04:49:Alyse Brar RN) Inf Hx HIV/AIDS: No (07/11/2016 04:49:Alyse Brar RN) Inf Hx Human Papilloma Virus: No (07/11/2016 04:49:Alyse Brar RN) Inf Hx Pt/Partner Genital Herpes: No (07/11/2016 04:49:Alyse Brar RN) Inf Hx Tuberculosis/Exposure: No (07/11/2016 04:49:Alyse Brar RN) Inf Hx Hepatitis B,C: No (07/11/2016 04:49:Alyse Brar RN) Inf Hx Rash or Viral Illness: No (07/11/2016 04:49:Alyse Brar RN) GENETIC HISTORY Gen Hx Age >=35 at PRIMITIVO: No (07/11/2016 04:49:Alyse Brar RN) Gen Hx Thalassemia: No (07/11/2016 04:49:Alyse Brar RN) Gen Hx Congenital Heart Defect: No (07/11/2016 04:49:Alyse Brar RN) Gen Hx Neural Tube Defect: No (07/11/2016 04:49:Alyse Brar RN) Gen Hx Down's Syndrome: No (07/11/2016 04:49:Alyse Brar RN) Gen Hx Ricardo-Sachs: No (07/11/2016 04:49:Alyse Brar RN) Gen Hx Adia: No (07/11/2016 04:49:Alyse Brar RN) Gen Hx Familial Dysautonomia: No (07/11/2016 04:49:Alyse Brar RN) Gen Hx Sickle Cell Disease/Trait: No (07/11/2016 04:49:Alyse Brar RN) Gen Hx Hemophilia/Blood Disorder: No (07/11/2016 04:49:Alyse Brar RN) Gen Hx Muscular Dystrophy: No (07/11/2016 04:49:Alyse Brar RN) Gen Hx Cystic Fibrosis: No (07/11/2016 04:49:Alyse Brar RN) Gen Hx Huntingtons Chorea: No (07/11/2016 04:49:Alyse Brar RN) Gen Hx Mental Retardation/Autism: No (07/11/2016 04:49:Alyse Brar RN) Gen Hx Tested for Fragile X: No (07/11/2016 04:49:Alyse Brar RN) Gen Hx Other Inher/Chromosomal: No (07/11/2016 04:49:Alyse Brar RN) Gen Hx Maternal Metabolic DO: No (07/11/2016 04:49:Alyse Brar RN) Gen Hx Pt Father or FOB Defect: No (07/11/2016 04:49:Alyse Brar RN) Gen Hx Other Genetic History: No (07/11/2016 04:49:Alyse Brar RN) Gen Hx Drugs/Meds since LMP: No (07/11/2016 04:49:Alyse Brar RN)
--- NOTE | 2016-09-10 06:12 | L&D Current Admission ---
Current Admit Datetime Report Generated by CPN: 09/10/2016 06:00 ADMISSION INFORMATION Current Admit Date/Time: 09/09/2016 05:15 (09/09/2016 05:15:Lorena Ellison RN) Reason for Admission: Onset of Labor; Rupture of Membranes (09/09/2016 05:15:Lroena Ellison RN) Other Reason for Admission: severe N/V/D (07/11/2016 05:00:Alyse Brar RN) Chief Complaint: Contractions; Suspected Rupture of Membranes (09/09/2016 05:15:Cadence Davila RN) Medications During : Vitamin; Rantidine (Zantac) (09/09/2016 05:15:Lorena Ellison RN) EGA per Dates: 40.2 (09/09/2016 05:15:QS system process) Method of Arrival: Wheelchair (09/09/2016 05:15:Lorena Ellison RN) Admitted From: Home (09/09/2016 05:15:Lorena Scot, RN) Reason for Induction: Not Applicable (09/09/2016 05:15:Lorena Ellison RN) Records Available: Yes (09/09/2016 05:15:Lorena Ellison RN) General Admission Information: Reviewed; Updated; Confirmed (09/09/2016 05:15:Lorena Ellison RN) General Admission Reviewed By: Amanda Ellison RN (09/09/2016 05:15:Lorena Ellison RN) BELONGINGS/ADVANCED DIRECTIVES Valuables/Personal Effects: None (07/11/2016 05:00:Alyse Brar RN) Other Belongings: See [facility] belongings form (09/09/2016 05:15:Lorena Ellison RN) Disposition of Belongings: Kept with Patient (07/11/2016 05:00:Alyse Brar RN) Advance Direct for Healthcare: No, but Requests Information (09/09/2016 05:15:Lorena Ellison RN) Durable Power of Rehab Care Assistant: No (09/09/2016 05:15:Loerna Ellison RN) Living Will: No (09/09/2016 05:15:Lorena Ellison RN) Organ Donor: Yes (09/09/2016 05:15:Lorena Ellison RN) Pt Rights Information Given: Yes (09/09/2016 05:15:Lorena Ellison RN) Pt Understands Pt Rights: No (09/09/2016 05:15:Lorena Ellison RN) LEARNING ASSESSMENT Knowledge Level: Understands L_D Process (09/09/2016 05:15:Lorena Ellison RN) Barriers to Learning: Emotional State; Pain (09/09/2016 05:15:Lorena Ellison RN) Learning Readiness: Motivated (09/09/2016 05:15:Lorena Ellison RN) Learns Best By: 1 to 1 Instruction (09/09/2016 05:15:Lorena Ellison RN) Learning Needs: Labor and Delivery Process; Pain Management; Symptoms to Report; Treatment Plan; Medication; Equipment (09/09/2016 05:15:Lorena Ellison RN) DOMESTIC VIOLANCE SCREENING Dom Viol Threatened/Hurt: No (07/11/2016 05:00:Alyse Brar RN) Hx of Abuse/Neglect past 2yrs: No (07/11/2016 05:00:Alyse Brar RN) Feel Unsafe Going Home: No (07/11/2016 05:00:Alyse Brar RN) Addt'l Observ Indicating Abuse: No (07/11/2016 05:00:Alyse Brar RN) Reason Unable to Complete Screen: N/A, Screen Completed (07/11/2016 05:00:Alyse Brar RN) Considered Personal Harm/Suicide: No (07/11/2016 05:00:Alyse Brar RN) NUTRITIONAL/FUNCTIONAL SCREENING Problem with Appetite >5 Days: No (09/09/2016 05:15:Lorena Ellison RN) Chew/Swallow Difficulties: No (09/09/2016 05:15:Lorena Ellison RN) Inappropriate Wt Gain/Loss: No (09/09/2016 05:15:Lorena Ellison RN) Presence Skin Breakdown/Ulcer: No (09/09/2016 05:15:Lorena Ellison RN) Special Diet: No (09/09/2016 05:15:Lorena Ellison RN) Pt Requests Medical Writer 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
--- NOTE | 2016-09-10 06:30 | L&D Care Plan ---
LD CARE PLANS Datetime Report Generated by CPN: 09/10/2016 06:15 Datetime: 09/09/2016 05:34 Pain State: Actual (Melanie Norris RN) Related To: Labor and Delivery Process; Treatment and Procedures; Post (Melanie Norris RN) Goal(s): Patients Pain will be Assessed and Managed; Patient will Verbalize Adequate Relief of Pain or the Ability to [place] with Current Pain (Melanie Norris RN) Interventions: Assess Pain Severity on Scale of 0 (None) to 5 (Severe); Assess Type, Location and Intensity of Pain Each Time Client Reports Discomfort and Notify Provider if Unusal Pain Develops; Encourage Proper Breathing and Relaxation Techniques; Offer Alternatives Such as Repositioning, Calm Environment, Massages, Diversional Activities, Ice Pack, Splinting, and Ambulation; Administer Analgesics as Ordered; Assist with Epidural Placement as Appropriate; Evaluate Therapeutic Effectiveness of Medication and Treatments (Melanie Norris RN) Outcome: Patient will Report Absence or Relief of Pain Consistent with Established Pain Goal (Melanie Norris RN) Status: Ongoing (Melanie Norris RN) Outcome: Patient will have a Decrease in Signs and Symptoms of Discomfort (Melanie Norris RN) Status: Ongoing (Melanie Norris RN) Outcome: Pain will be Controlled During Procedures (Melanie Norris RN) Status: Ongoing (Melanie Norris RN) Anxiety State: Risk For (Melanie Norris RN) Related To: Labor and Delivery Process; Fear of Unknown; Situational Crisis; Significant Life Event (Melanie Norris RN) Goal(s): Patient will have Decreased Anxiety and be able to Function at Acceptable Levels (Melanie Norris RN) Interventions: Assess Verbal and Nonverbal Behavioral Indicators of Anxiety; Assist Patient to Identify and Verbalize Symptoms of Anxiety; Identify and Demonstrate Techniques to Control Anxiety; Assist Patient with Coping Mechanisms to Manage Anxiety; Provide Theraputic Touch for the Patient; Explain to Patient, Using a Calm Reassuring Approach and Nonmedical Terms, All Activities, Procedures, and Concerns; Instruct Patient and Family about Post Discharge Care, Limitations, Symptoms to Report and Resources Available (Melanie Norris RN) Outcome: Patient will Identify, Verbalize and Demonstrate Techniques to Control Anxiety (Melanie Norris RN) Status: Ongoing (Melanie Norris RN) Outcome: Patient's Posture, Facial Expressions, Gestures and Activity Level will Reflect Decreased Anxiety (Melanie Norris RN) Status: Ongoing (Melanie Norris RN) Outcome: Patient will Verbalize a Sense of Control and/or Acceptance of the Situation (Melanie Norris RN) Status: Ongoing (Melanie Norris RN) Outcome: Patient will Identify and Utilize Support Person (Melanie Norris RN) Status: Ongoing (Melanie Nroris RN) Knowledge Deficit State: Risk For (Melanie Norris RN) Related To: Labor and Delivery Process; Impending Alterations in Family Dynamics; Community Resources and Available Support Mechanisms (Melanie Norris RN) Goal(s): Patient will Accurately Verbalize Understanding of Plan of Care and Treatment; Patient and Family will Accurately Verbalize Understanding of the Disease Process (Melanie Norris RN) Interventions: Assess Motivation and Willingness of Patient/Family to Learn; Assess Preferred Learning Mode: One to One Instruction, Reading, Videos, Group Discussion or Demonstration; Assess Barriers to Learning: Pain, Emotional State, Language Barrier, Cognitive Impairment, Visual or Hearing Deficits; Assess Patient and Family Knowledge of Disease Process, Medications and Treatment; Discuss Therapy and/or Treatment Options, Describe Rationale Behind Management, Therapy and Treatment Recommendations; Instruct Patient and Family on Signs and Symptoms to Report; Instruct Patient and Family on Medication Effects and Side Effects; Provide Appropriate and Timely Education Using Multiple Techniques; Provide Patient and Family with Support Group Information and Resources; Give Clear and Thorough Explanations and Demonstrations (Melanie Norris RN) Outcome: Patient and Family will Verbalize Understanding of Condition, Treatment and Signs and Symptoms to Report (Melanie Norris RN) Status: Ongoing (Melanie Norris RN) Outcome: Patient will Identify Perceived Learning Needs and Express Motivation to Learn (Melanie Norris RN) Status: Ongoing (Melanie Norris RN) Outcome: Patient will Verbalize Understanding of Desired Content, and/or Performs Desired Skill Prior to Discharge (Melanie Norris RN) Status: Ongoing (Melanie Norris RN) Infection State: Risk For (Melanie Norris RN) Related To: Prolonged Labor or Induction; Premature/Prolonged Rupture of Membranes; Invasive Procedures; Altered Tissue Integrity (Melanie Norris RN) Goal(s): The Patient will be Free of Infection, Vital Signs Stable and Lab Work within Normal Parameters (Melanie Norris RN) Interventions: Instruct and Reinforce Proper Handwashing, Hygiene, and Care Techniques to Patient and Family; Monitor Vital Signs; Monitor Patient for the Following Signs of Infection: Fever, Abdominal Tenderness, Unusual Discharge; Monitor Aminiotic Fluid, Urine and Lochia for Color and Odor; Observe Wounds, Incisions and Invasive Line Sites for Redness, Drainage and Edema; Assess IV Sites per Hospital Policy; Monitor Lab and Test Results and Notify Provider of Abnormal Findings; Assess Nutritional Status and Promote Good Nutrition (Melanie Norris RN) Outcome: Patient will Remain Free of Infection (Melanie Norris RN) Status: Ongoing (Melanie Norris RN) Outcome: Infection will be Recognized Early to Allow for Prompt Treatment (Melanie Norris RN) Status: Ongoing (Melanie Norris RN) Outcome: Patient will have Vital Signs Within Expected Range (Melanie Norris RN) Status: Ongoing (Melanie Norris RN) Fluid Volume State: Risk For (Melanie Norris RN) Related To: Prolonged Labor or Induction (Melanie Norris RN) Goal(s): Patient will Achieve and Maintain a Balanced Fluid Volume Status; Hemodynamically Stable (Melanie Norris RN) Interventions: Monitor Vital Signs; Auscultate Breath Sounds; Monitor Patient for Skin Turgor, Mucous Membranes, Dry Skin, Weakness, Headaches and Confusion; Provide Oral Fluids as Ordered; Initiate and Maintain Intravenous Fluids as Ordered; Monitor Intake and Output as Indicated Per Patient Status; Accurately Measure Blood Loss; Monitor Lab and Test Results as Obtained and Notify Provider of Abnormal Findings; Monitor Patient's Weight (Melanie Norris RN) Outcome: Patient will have Clear Lung Sounds (Melanie Norris RN) Status: Ongoing (Melanie Norris RN) Outcome: Patient will have Vital Signs within Expected Range (Melanie Norris RN) Status: Ongoing (Melanie Norris RN) Outcome: Urine Output will be within Expected Range (Melanie Norris RN) Status: Ongoing (Melanie Norris RN) Outcome: Patient will have Minimal Generalized or Upper Extremity Edema (Melanie Norris HUSSAIN) Status: Ongoing (Melanie Latphoebe, RN) Injury State: Risk For (Melanie Norris RN) Related To: Labor and Delivery Process; Anesthesia (Melanie Norris RN) Goal(s): Patient will Remain Free from Injury (Melanie Norris RN) Interventions: Monitoring as per Hospital Protocol; Assess Neurological Status; Perform Risk Assessment of Patients with Induction and ; Perform Fall Risk Assessment and Prevention per Hospital Protocol; Perform DVT Risk Assessment and Prophylaxis per Hospital Protocol; Ensure that Oxygen, Suction, and Resuscitation Medications and Equipment are Readily Available; Confirm Patient ID Prior to Procedure(s) and Medication Administration per Hospital Policy (Melanie Norris RN) Outcome: Successful Fall Risk Prevention (Melanie Norris RN) Status: Ongoing (Melanie Norrsi RN) Outcome: Patient will Deliver without Adverse Sequela (Melanie Norris RN) Status: Ongoing (Melanie Norris RN) Outcome: Patient's Neurological Status will Remain Stable (Melanie Norris RN) Status: Ongoing (Melanie Norris, RN) Impaired Skin Integrity State: Risk For (Melanie Norris RN) Related To: Vaginal Delivery; Altered Tissue Integrity; Invasive Procedures (Melanie Norris RN) Goal(s): Patient will Maintain Optimal Skin Integrity, Free of Breakdown, Injury or Infection (Melanie Norris RN) Interventions: Complete Screening for Pressure Ulcer Risk and Initiate Protocol per Hospital Policy; Monitor Site of Skin Impairment for Color Changes, Redness, Swelling, Warmth, Pain or Other Signs of Infection; Encourage and Assist with Position Changes; Monitor Patient's Mobility Status; Provide Adequate Nutrition and Fluids; Teach Patient Appropriate Hygienic Care; Teach Patient/Family Skin Care Management (Melanie Norris RN) Outcome: Patient will not have Evidence of Injury Such as Skin Breakdown, Scrapes, Cuts, or Bruising (Melanie Norris RN) Status: Ongoing (Melanie Norris RN) Outcome: Patient will Report Any Altered Sensation or Pain at Site of Skin Impairment (Melanie Norris RN) Status: Ongoing (Melanie Norris RN) Outcome: Patients Incisions and Wounds will be without Signs or Symptoms of Infection (Melanie Norris RN) Status: Ongoing (Melanie Norris RN) Outcome: Patient will Demonstrate Understanding of Plan to Heal Skin and Prevent Reinjury and Verbalize Risk Factors (Melanie Norris RN) Status: Ongoing (Melanie Norris RN)
[2016-09-10 08:10] LABS: HEMATOCRIT 25.2 % (36.0-47.0); HGB HCT DIFFERENCE -1.5; MEAN CORPUSCULAR HEMOGLOBIN 24.5 pg (27.0-33.4); MEAN CORPUSCULAR HGB CONC 31.2 g/dL (32.0-36.0); MEAN CORPUSCULAR VOLUME 79 fl (80-97); WHITE BLOOD COUNT 11.9 10^3/uL (4.0-10.5)
[2016-09-10 08:26] LABS: HEMOGLOBIN 7.9 g/dL (12.0-15.5)
[2016-09-10] MEDS: FAMOTIDINE 20 MG TABLET PO SCH ×2 (09:45→21:07)
[2016-09-10] MEDS: FERROUS SULFATE 325 MG TABLET PO SCH ×2 (09:48→17:49)
[2016-09-10] MEDS: SENNOSIDES/DOCUSATE 8.6-50 MG 1 EACH TABLET PO SCH (09:48)
[2016-09-10] MEDS: PRENATAL VITAMIN W-O CA NO5/FE FUMARATE/FA CAPSULE PO SCH (09:48)
[2016-09-10] MEDS: DOCUSATE SODIUM 100 MG CAPSULE PO SCH ×2 (09:48→17:49)
--- NOTE | 2016-09-10 10:15 | PDOC PROGRESS REPORT ---
Subjective-OB Subjective: Post Delivery Day: 30 year old. Denies any needs at this time Doing well, no c/o, ambulating, scant lochia, eating well Physical Exam (OB) Vital Signs: Temp Pulse Resp BP Pulse Ox 97.4 F 81 17 106/62 98 09/10/16 08:31 09/10/16 08:31 09/10/16 08:31 09/10/16 08:31 09/10/16 08:31 Intake & Output 09/09/16 09/10/16 09/11/16 06:59 06:59 06:59 Weight 87 kg - Lochia Lochia Amount: Scant < 10 ml Lochia Color: Rubra/Red - Abdomen Description: Tender, Soft Hernia Present: No Fundal Description: Firm, Midline Fundal Height: u/u - u/2 Objective-Diagnostic Laboratory: 09/10/16 07:27 09/10/16 07:27 WBC 11.9 H RBC 3.20 L Hgb 7.9 L Hct 25.2 L MCV 79 L MCH 24.5 L MCHC 31.2 L RDW 16.0 H Plt Count 292 Assessment and Plan(PN) - Assessment and Plan (1) Normal vaginal delivery Is this a current diagnosis for this admission?: Yes (2) Qualifiers: Weeks of gestation: 40 weeks Qualified Code(s): Z3A.40 - 40 weeks gestation of Is this a current diagnosis for this admission?: Yes - Time Spent with Patient Time with patient: Less than 15 minutes Medications reviewed and adjusted accordingly: Yes - Disposition Anticipated Discharge: Home
[2016-09-11] MEDS: IBUPROFEN 800 MG TABLET PO SCH (05:08)
--- NOTE | 2016-09-11 06:10 | L&D General Admission ---
General Admit Datetime Report Generated by CPN: 09/11/2016 06:00 INFORMATION Patient Age: 30 (07/11/2016 04:45:QS system process) EDC: 09/07/2016 00:00 (07/11/2016 04:49:Mahogany Valerio RN) : 2 (07/11/2016 04:49:Yarely Martinez RN) Para: 1 (09/09/2016 03:20:Freida Lilly RN) Term: 1 (07/11/2016 04:49:Yarely Martinez RN) : 0 (07/11/2016 04:49:Yarely Martinez RN) Spontaneous Abortions: 0 (07/11/2016 04:49:Yarely Martinez RN) Induced Abortions: 0 (07/11/2016 04:49:Yarely Martinez RN) Livin (07/11/2016 04:49:Yarely Martinez RN) Baby, Number in Womb: 1 (09/09/2016 03:20:Freida Lilly RN) CARE Primary Pneumatic Tube Fitter: [facility] (07/11/2016 04:49:Annel Chambers RN) Month of 1st Visit: 01/2016 (07/11/2016 04:49:Annel Chambers RN) Adequate Care: No (07/11/2016 04:49:Annel Chambers RN) Height (in): 65 (07/11/2016 06:06:QS system process) ALLERGIES Medication Allergy: Yes (07/11/2016 04:49:Yarely Martinez RN) Medication Allergies: morphine/OR/Pruritis (09/09/2016) (09/09/2016 01:12:QS system process) Latex Allergy: No Latex Allergies (07/11/2016 04:49:Yarely Martinez RN) Food Allergies: None (07/11/2016 04:49:Alyse Brar RN) Environmental Allergies: None (07/11/2016 04:49:Alyse Brar RN) COMMUNICATION Primary Language: Norwegian (07/11/2016 04:49:Annel Chambers RN) Medical Tx Preferred Language: Norwegian (07/11/2016 04:49:Yarely Martinez RN) Norwegian Communication Ability: Speaks Norwegian; Reads Norwegian (07/11/2016 04:49:Yarely Martinez RN) DEMOGRAPHICS Address: [address] [place] [id number] (07/11/2016 04:46:QS system process) Zipcode: [address] (07/11/2016 04:46:QS system process) Home (07/11/2016 04:45:QS system process) Work (07/11/2016 04:45:QS system process) N: [phone] (07/11/2016 04:45:QS system process) Next of Kin Name: JAMI GO (07/11/2016 04:45:QS system process) Next of Kin (07/11/2016 04:45:QS system process) Next of Kin Relationship: SPO (07/11/2016 04:45:QS system process) Date of : 1985 (07/11/2016 04:45:QS system process) Marital Status: (07/11/2016 04:45:QS system process) Sex: Female (07/11/2016 04:45:QS system process) 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 [phone] (07/11/2016 04:49:Alyse Brar RN) Marijuana: No (07/11/2016 04:49:Alyse Brar RN) Cocaine: No (07/11/2016 04:49:Alyse Brar RN) Other Illicit Drugs: No (07/11/2016 04:49:Alyse Brar RN) VACCINE HISTORY Influenza Vaccine: Yes (07/11/2016 04:49:Annel Chambers RN) Influenza Date: 06/18/2016 (07/11/2016 04:49:Annel Chambers RN) Pneumococcal Vaccine: No (07/11/2016 04:49:Alyse Brar RN) Tetanus Vaccine: Yes (07/11/2016 04:49:Annel Chambers RN) Tetanus Date: 06/18/2016 (07/11/2016 04:49:Annel Chambers RN) Tdap Vaccine: Yes (07/11/2016 04:49:ZOHAIB Rose) Tdap Date: 06/18/2016 (07/11/2016 04:49:ZOHAIB Rose) Hepatitis B Vaccine: Yes (07/11/2016 04:49:Alyse Brar RN) Clinical Pharmacologist: [facility] (07/11/2016 04:49:Freida Lilly RN) Feeding Preference: Formula (07/11/2016 04:49:Alyse Brar RN) Benefit of Breast Feed Discussed: Yes (07/11/2016 04:49:ZOHAIB Rose) Circumcision: Yes (07/11/2016 04:49:Freida Lilly RN) Classes Attended: Nubia (07/11/2016 04:49:Freida Lilly RN) Tubal Ligation: No (07/11/2016 04:49:Alyse Brar RN) Tubal Authorization Signed: N/A (07/11/2016 04:49:Alyse Brar RN) Consent: N/A (07/11/2016 04:49:Alyse Brar RN) Consent Signed: N/A (07/11/2016 04:49:Alyse Brar RN) Pain Management Plans: Epidural (07/11/2016 04:49:Freida Lilly RN) Plans for Labor and Delivery: Other, Specify (07/11/2016 04:49:Alyse Brar, RN) Other Labor and Delivery Plans: 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 (07/11/2016 04:49:Alyse Brar, HUSSAIN) Support Person: Jami Go (07/11/2016 04:49:Alyse Brar RN) Support Person Relationship: (07/11/2016 04:49:Alyse Brar, RN) Cultural/Spritual Practice: Nubia (07/11/2016 04:49:Alyse Brar, RN) Spir/Cult Dietary Needs: Nubia (07/11/2016 04:49:Freida Lilly RN) LIVING SITUATION/DISCHARGE PLAN Living Arrangements: House (07/11/2016 04:49:Alyse Brar RN) Adequate Access to:: Electric; Heat; Refrigeration; Plumbing/Running water; Phone; Transportation (07/11/2016 04:49:Alyse Maykel, RN) WIC Program: No (07/11/2016 04:49:Alyse Brar RN) Discharge Change Control Specialist Person: Jami Go (07/11/2016 04:49:Alyse Brar RN) Person to Help after Discharge: Jami [place] (07/11/2016 04:49:Alyse Brar RN) Currently Using Commun Resources: No (07/11/2016 04:49:Alyse Brar RN) Outside Agency/Grease Rack Worker: No (07/11/2016 04:49:Alyse Brar RN) Car Seat for Discharge: Yes (07/11/2016 04:49:Alyse Brar RN) Adoption Requested: No (07/11/2016 04:49:Alyse Brar RN) Pt Contact w/ Post : N/A (07/11/2016 04:49:Alyse Brar RN) LABS Blood Type: O Negative (07/11/2016 04:49:Annel Chambers RN) Rho(G) this : Yes (07/11/2016 04:49:Annel Chambers RN) Date Rho(G) Given: 06/18/2016 (07/11/2016 04:49:Annel Chambers RN) Hemoglobin: 7.9 L (Annotations: VERBAL RESULT GIVEN TO Nikki ELDRIDGE RN AT 0825 09/10/16 BY JENARO SCOTT. VERIFIED BY READ BACK.) (09/10/2016 07:27:QS system process) Hematocrit: 25.2 L (09/10/2016 07:27:QS system process) MCV: 79 L (09/10/2016 07:27:QS system process) Group Beta Strep: neg (07/11/2016 04:49:Christiano Soliz RN) Gonorrhea: Negative (07/11/2016 04:49:Annel Chambers RN) Chlamydia: Negative (07/11/2016 04:49:Annel Chambers RN) RPR/VDRL: Nonreactive (07/11/2016 04:49:Annel Chambers RN) HIV Exposure Test: Negative (07/11/2016 04:49:Annel Chambers RN) Hepatitis B: Negative (07/11/2016 04:49:Annel Chambers RN) Rubella: Immune (07/11/2016 04:49:Annel Chambers RN) OB/PREVIOUS HISTORY Previous Procedures: Ultrasound (07/11/2016 04:49:Alyse Brar RN) Current Procedures: Ultrasound (07/11/2016 04:49:Alyse Brar RN) History of Previous : No (07/11/2016 04:49:Alyse Brar RN) History of Gestational Diabetes: No (07/11/2016 04:49:Alyse Brar RN) History of PIH: No (07/11/2016 04:49:Alyse Brar RN) History of Incompetent Cervix: No (07/11/2016 04:49:Alyse Brar RN) History of Placenta Previa/Abrup: No (07/11/2016 04:49:Alyse Brar RN) History of Macrosomia: No (07/11/2016 04:49:Alyse Brar RN) History of IUGR: No (07/11/2016 04:49:Alyse Brar RN) History of Hemorrhage: No (07/11/2016 04:49:Alyse Brar RN) History of Loss/Stillborn: No (07/11/2016 04:49:Alyse Brar RN) History of : No (07/11/2016 04:49:Alyse Brar RN) History of D (Rh) Sensitization: No (07/11/2016 04:49:Alyse Brar RN) History Recurrent Loss/Stillborn: No (07/11/2016 04:49:Alyse Brar RN) History Depression/PP Depression: No (07/11/2016 04:49:Alyse Brar RN) History of Uterine Anomaly/TANNER: No (07/11/2016 04:49:Alyse Brar RN) History of Infertility: No (07/11/2016 04:49:Alyse Brar RN) History of ART Treatment: No (07/11/2016 04:49:Alyse Brar RN) History of TANNER: No (07/11/2016 04:49:Alyse Brar RN) Comments Obstetrical History: G1 - 11/24/10 G2 - current - failed 1 hr gtt (07/11/2016 04:49:Annel Chambers RN) MEDICAL HISTORY Med Hx Diabetes: No (07/11/2016 04:49:Alyse Brar RN) Med Hx Hypertension: No (07/11/2016 04:49:Alyse Brar RN) Med Hx Heart Disease: No (07/11/2016 04:49:Alyse Brar RN) Med Hx Autoimmune Disorder: No (07/11/2016 04:49:Alyse Brar RN) Med Hx Kidney Disease/UTI: No (07/11/2016 04:49:Alyse Brar RN) Med Hx Neurologic/Epilepsy: No (07/11/2016 04:49:Alyse Brar RN) Med Hx Psychiatric Disorders: No (07/11/2016 04:49:Alyse Brar RN) Med Hx Hepatitis/Liver Disease: No (07/11/2016 04:49:Alyse Brar RN) Med Hx Varicosities/Phlebitis: No (07/11/2016 04:49:Alyse Brar RN) Med Hx Thyroid Dysfunction: No (07/11/2016 04:49:Alyse Brar RN) Med Hx Trauma/Violence: No (07/11/2016 04:49:Alyse Brar RN) Med Hx Blood Transfusion: No (07/11/2016 04:49:Alyse Brar RN) Med Hx Pulmonary (Asthma,TB): No (07/11/2016 04:49:Alyse Brar RN) Med Hx Breast: No (07/11/2016 04:49:Alyse Brar RN) Med Hx CLAY ROASTER Surgery: No (07/11/2016 04:49:Alyse Brar RN) Med Hx Hospitalization/Surgery: Yes (07/11/2016 04:49:Alyse Brar RN) Med Hx Anesthetic Complications: No (07/11/2016 04:49:Alyse Brar RN) Med Hx Abnormal Pap Smear: No (07/11/2016 04:49:Alyse Brar RN) Other Medical Diseases: Yes (07/11/2016 04:49:Alyse Brar RN) Med Hx Significant Family Hx: No (07/11/2016 04:49:Alyse Brar RN) Details of Med/Surg Hx: Hx of Prolactinoma - unable to breastfeed Hospitalized for childbirth (07/11/2016 04:49:Alyse Brar RN) INFECTIOUS HISTORY Inf Hx Gonorrhea: No (07/11/2016 04:49:Alyse Brar RN) Inf Hx Chlamydia: No (07/11/2016 04:49:Alyse Brar RN) Inf Hx Syphilis: No (07/11/2016 04:49:Alyse Brar RN) Inf Hx HIV/AIDS: No (07/11/2016 04:49:Alyse Brar RN) Inf Hx Human Papilloma Virus: No (07/11/2016 04:49:Alyse Brar RN) Inf Hx Pt/Partner Genital Herpes: No (07/11/2016 04:49:Alyse Brar RN) Inf Hx Tuberculosis/Exposure: No (07/11/2016 04:49:Alyse Brar RN) Inf Hx Hepatitis B,C: No (07/11/2016 04:49:Alyse Brar RN) Inf Hx Rash or Viral Illness: No (07/11/2016 04:49:Alyse Brar RN) GENETIC HISTORY Gen Hx Age >=35 at PRIMITIVO: No (07/11/2016 04:49:Alyse Brar RN) Gen Hx Thalassemia: No (07/11/2016 04:49:Alyse Brar RN) Gen Hx Congenital Heart Defect: No (07/11/2016 04:49:Alyse Brar RN) Gen Hx Neural Tube Defect: No (07/11/2016 04:49:Alyse Brar RN) Gen Hx Down's Syndrome: No (07/11/2016 04:49:Alyse Brar RN) Gen Hx Ricardo-Sachs: No (07/11/2016 04:49:Alyse Brar RN) Gen Hx Adia: No (07/11/2016 04:49:Alyse Brar RN) Gen Hx Familial Dysautonomia: No (07/11/2016 04:49:Alyse Brar RN) Gen Hx Sickle Cell Disease/Trait: No (07/11/2016 04:49:Alyse Brar RN) Gen Hx Hemophilia/Blood Disorder: No (07/11/2016 04:49:Alyse Brar RN) Gen Hx Muscular Dystrophy: No (07/11/2016 04:49:Alyse Brar RN) Gen Hx Cystic Fibrosis: No (07/11/2016 04:49:Alyse Brar RN) Gen Hx Huntingtons Chorea: No (07/11/2016 04:49:Alyse Brar RN) Gen Hx Mental Retardation/Autism: No (07/11/2016 04:49:Alyse Brar RN) Gen Hx Tested for Fragile X: No (07/11/2016 04:49:Alyse Brar RN) Gen Hx Other Inher/Chromosomal: No (07/11/2016 04:49:Alyse Brar RN) Gen Hx Maternal Metabolic DO: No (07/11/2016 04:49:Alyse Brar RN) Gen Hx Pt Father or FOB Defect: No (07/11/2016 04:49:Alyse Brar RN) Gen Hx Other Genetic History: No (07/11/2016 04:49:Alyse Brar RN) Gen Hx Drugs/Meds since LMP: No (07/11/2016 04:49:Alyse Brar RN)
--- NOTE | 2016-09-11 06:10 | L&D Current Admission ---
Current Admit Datetime Report Generated by CPN: 09/11/2016 06:00 ADMISSION INFORMATION Current Admit Date/Time: 09/09/2016 05:15 (09/09/2016 05:15:Lorena Ellison RN) Reason for Admission: Onset of Labor; Rupture of Membranes (09/09/2016 05:15:Lorena Ellison RN) Other Reason for Admission: severe N/V/D (07/11/2016 05:00:Alyse Brar RN) Chief Complaint: Contractions; Suspected Rupture of Membranes (09/09/2016 05:15:Cadence Davila RN) Medications During : Vitamin; Rantidine (Zantac) (09/09/2016 05:15:Lorena Ellison RN) EGA per Dates: 40.2 (09/09/2016 05:15:QS system process) Method of Arrival: Wheelchair (09/09/2016 05:15:Lorena Ellison RN) Admitted From: Home (09/09/2016 05:15:Lorena Scot, RN) Reason for Induction: Not Applicable (09/09/2016 05:15:Lorena Ellison RN) Records Available: Yes (09/09/2016 05:15:Lorena Ellison RN) General Admission Information: Reviewed; Updated; Confirmed (09/09/2016 05:15:Lorena Ellison RN) General Admission Reviewed By: Amanda Ellison RN (09/09/2016 05:15:Lorena Ellison RN) BELONGINGS/ADVANCED DIRECTIVES Valuables/Personal Effects: None (07/11/2016 05:00:Alyse Brar RN) Other Belongings: See [facility] belongings form (09/09/2016 05:15:Lorena Ellison RN) Disposition of Belongings: Kept with Patient (07/11/2016 05:00:Alyse Brar RN) Advance Direct for Healthcare: No, but Requests Information (09/09/2016 05:15:Lorena Ellison RN) Durable Power of Marketing Administrator: No (09/09/2016 05:15:Lorena Ellison RN) Living Will: No (09/09/2016 05:15:Lorena Ellison RN) Organ Donor: Yes (09/09/2016 05:15:Lorena Ellison RN) Pt Rights Information Given: Yes (09/09/2016 05:15:Lorena Ellison RN) Pt Understands Pt Rights: No (09/09/2016 05:15:Lorena Ellison RN) LEARNING ASSESSMENT Knowledge Level: Understands L_D Process (09/09/2016 05:15:Lorena Ellison RN) Barriers to Learning: Emotional State; Pain (09/09/2016 05:15:Lorena Ellison RN) Learning Readiness: Motivated (09/09/2016 05:15:Lorena Ellison RN) Learns Best By: 1 to 1 Instruction (09/09/2016 05:15:Lorena Ellison RN) Learning Needs: Labor and Delivery Process; Pain Management; Symptoms to Report; Treatment Plan; Medication; Equipment (09/09/2016 05:15:Lorena Ellison RN) DOMESTIC VIOLANCE SCREENING Dom Viol Threatened/Hurt: No (07/11/2016 05:00:Alyse Brar RN) Hx of Abuse/Neglect past 2yrs: No (07/11/2016 05:00:Alyse Brar RN) Feel Unsafe Going Home: No (07/11/2016 05:00:Alyse Brar RN) Addt'l Observ Indicating Abuse: No (07/11/2016 05:00:Alyse Brar RN) Reason Unable to Complete Screen: N/A, Screen Completed (07/11/2016 05:00:Alyse Brar RN) Considered Personal Harm/Suicide: No (07/11/2016 05:00:Alyse Brar RN) NUTRITIONAL/FUNCTIONAL SCREENING Problem with Appetite >5 Days: No (09/09/2016 05:15:Lorena Ellison RN) Chew/Swallow Difficulties: No (09/09/2016 05:15:Lorena Ellison RN) Inappropriate Wt Gain/Loss: No (09/09/2016 05:15:Lorena Ellison RN) Presence Skin Breakdown/Ulcer: No (09/09/2016 05:15:Lorena Ellison RN) Special Diet: No (09/09/2016 05:15:Lorena Ellison RN) Pt Requests Branch Credit Counselor 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
[2016-09-11 07:56] VITALS: BP 114/64
[2016-09-11] MEDS: DOCUSATE SODIUM 100 MG CAPSULE PO SCH (09:12)
[2016-09-11] MEDS: SENNOSIDES/DOCUSATE 8.6-50 MG 1 EACH TABLET PO SCH (09:12)
[2016-09-11] MEDS: PRENATAL VITAMIN W-O CA NO5/FE FUMARATE/FA CAPSULE PO SCH (09:12)
[2016-09-11] MEDS: FERROUS SULFATE 325 MG TABLET PO SCH (09:12)
[2016-09-11] MEDS: FAMOTIDINE 20 MG TABLET PO SCH (09:12)
--- NOTE | 2016-09-11 13:07 | PDOC DISCHARGE SUMMARY ---
Discharge Summary-OB Discharge Date: 09/11/16 - Final Diagnosis (1) Normal vaginal delivery Is this a current diagnosis for this admission?: Yes - Discharge Medication Home Medications: Ranitidine HCl [Zantac 150 mg Tablet] 150 mg PO BID 07/11/16 Docusate Sodium [Colace 100 mg Capsule] 100 mg PO BID #60 capsule 09/11/16 Ferrous Sulfate [Feosol 325 mg Tablet] 325 mg PO BID #60 tablet 09/11/16 Ibuprofen [Motrin 800 mg Tablet] 800 mg PO Q8HP PRN #90 tablet 09/11/16 Pnv W-O Ca No5/Fe Fumarate/FA [-U Multiple Vitamin Capsule] 1 cap PO DAILY #0 capsule 09/11/16 Reason(s) for Admission: Onset of Labor Procedures: Ultrasound Intrapartum Procedure(s): Spontaneous Vaginal Delivery - Data Baby 1 Male at 1 minute: 9 at 5 minutes: 9 Weight: 3790 kg Home with Mother: Yes Complications: No - Diagnosis Test Laboratory: Temp Pulse Resp BP Pulse Ox 98.0 F 78 18 114/64 99 09/11/16 08:15 09/11/16 08:15 09/11/16 08:15 09/11/16 07:29 09/11/16 08:15 09/09/16 09/10/16 05:33 07:27 RBC 3.59 L 3.20 L Hgb 8.8 L 7.9 L Hct 28.2 L 25.2 L - Discharge information/Instructions Discharge Activity: Activity As Tolerated, Balance Activity w/Rest, No Lifting Over 10 Pounds, Pelvic Rest, No tub bath Discharge Diet: Regular Disposition: HOME, SELF-CARE Follow up with: [facility] in: 4, Weeks Physical Exam (OB) Vital Signs: Temp Pulse Resp BP Pulse Ox 98.0 F 78 18 114/64 99 09/11/16 08:15 09/11/16 08:15 09/11/16 08:15 09/11/16 07:29 09/11/16 08:15 Intake & Output 09/10/16 09/11/16 09/12/16 06:59 06:59 06:59 Baby 1 Male 3790 kg - General General Appearance: Appears well In distress: None - Episiotomy/Laceration Site Condition: N/A - Lochia Lochia Amount: Scant < 10 ml Lochia Color: Rubra/Red - Abdomen Description: Soft, Round Hernia Present: No Fundal Description: Firm, Midline Fundal Height: u/u - u/2 - Respiratory Respiratory Status: No respiratory distress - Genitourinary Female External exam: Normal Lochia: Mild - Extremities Upper extremity: Normal inspection Lower extremities: Normal inspection - Neurological Orientation: AAOx4 - Psychological Associated symptoms: Normal affect, Normal mood - bonding well with baby
--- NOTE | 2016-09-12 06:11 | L&D Current Admission ---
Current Admit Datetime Report Generated by CPN: 09/12/2016 06:00 ADMISSION INFORMATION Current Admit Date/Time: 09/09/2016 05:15 (09/09/2016 05:15:Lorena Ellison RN) Reason for Admission: Onset of Labor; Rupture of Membranes (09/09/2016 05:15:Lorena Ellison RN) Other Reason for Admission: severe N/V/D (07/11/2016 05:00:Alyse Brar RN) Chief Complaint: Contractions; Suspected Rupture of Membranes (09/09/2016 05:15:Cadence Davila RN) Medications During : Vitamin; Rantidine (Zantac) (09/09/2016 05:15:Lorena Ellison RN) EGA per Dates: 40.2 (09/09/2016 05:15:QS system process) Method of Arrival: Wheelchair (09/09/2016 05:15:Lorena Ellison RN) Admitted From: Home (09/09/2016 05:15:Lorena Scot, RN) Reason for Induction: Not Applicable (09/09/2016 05:15:Lorena Ellison RN) Records Available: Yes (09/09/2016 05:15:Lorena Ellison RN) General Admission Information: Reviewed; Updated; Confirmed (09/09/2016 05:15:Lorena Ellison RN) General Admission Reviewed By: Amanda Ellison RN (09/09/2016 05:15:Lorena Ellison RN) BELONGINGS/ADVANCED DIRECTIVES Valuables/Personal Effects: None (07/11/2016 05:00:Alyse Brar RN) Other Belongings: See [facility] belongings form (09/09/2016 05:15:Lorena Ellison RN) Disposition of Belongings: Kept with Patient (07/11/2016 05:00:Alyse Brar RN) Advance Direct for Healthcare: No, but Requests Information (09/09/2016 05:15:Lorena Ellison RN) Durable Power of Social Service Director: No (09/09/2016 05:15:Lorena Ellison RN) Living Will: No (09/09/2016 05:15:Lorena Ellison RN) Organ Donor: Yes (09/09/2016 05:15:Lorena Ellison RN) Pt Rights Information Given: Yes (09/09/2016 05:15:Lorena Ellison RN) Pt Understands Pt Rights: No (09/09/2016 05:15:Lorena Ellison RN) LEARNING ASSESSMENT Knowledge Level: Understands L_D Process (09/09/2016 05:15:Lorena Ellison RN) Barriers to Learning: Emotional State; Pain (09/09/2016 05:15:Lorena Ellison RN) Learning Readiness: Motivated (09/09/2016 05:15:Lorena Ellison RN) Learns Best By: 1 to 1 Instruction (09/09/2016 05:15:Lorena Ellison RN) Learning Needs: Labor and Delivery Process; Pain Management; Symptoms to Report; Treatment Plan; Medication; Equipment (09/09/2016 05:15:Lorena Ellison RN) DOMESTIC VIOLANCE SCREENING Dom Viol Threatened/Hurt: No (07/11/2016 05:00:Alyse Brar RN) Hx of Abuse/Neglect past 2yrs: No (07/11/2016 05:00:Alyse Brar RN) Feel Unsafe Going Home: No (07/11/2016 05:00:Alyse Brar RN) Addt'l Observ Indicating Abuse: No (07/11/2016 05:00:Alyse Brar RN) Reason Unable to Complete Screen: N/A, Screen Completed (07/11/2016 05:00:Alyse Brar RN) Considered Personal Harm/Suicide: No (07/11/2016 05:00:Alyse Brar RN) NUTRITIONAL/FUNCTIONAL SCREENING Problem with Appetite >5 Days: No (09/09/2016 05:15:Lorena Ellison RN) Chew/Swallow Difficulties: No (09/09/2016 05:15:Lorena Ellison RN) Inappropriate Wt Gain/Loss: No (09/09/2016 05:15:Lorena Ellison RN) Presence Skin Breakdown/Ulcer: No (09/09/2016 05:15:Lorena Ellison RN) Special Diet: No (09/09/2016 05:15:Lorena Ellison RN) Pt Requests Oven Attendant 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
--- NOTE | 2016-09-12 06:11 | L&D General Admission ---
General Admit Datetime Report Generated by CPN: 09/12/2016 06:00 INFORMATION Patient Age: 30 (07/11/2016 04:45:QS system process) EDC: 09/07/2016 00:00 (07/11/2016 04:49:Mahogany Valerio RN) : 2 (07/11/2016 04:49:Yarely Martinez RN) Para: 1 (09/09/2016 03:20:Freida Lilly RN) Term: 1 (07/11/2016 04:49:Yarely Martinez RN) : 0 (07/11/2016 04:49:Yarely Martinez RN) Spontaneous Abortions: 0 (07/11/2016 04:49:Yarely Martinez RN) Induced Abortions: 0 (07/11/2016 04:49:Yarely Martinez RN) Livin (07/11/2016 04:49:Yarely Martinez RN) Baby, Number in Womb: 1 (09/09/2016 03:20:Freida Lilly RN) CARE Primary Self Storage Manager: [employer] (07/11/2016 04:49:Annel Chambers RN) Month of 1st Visit: 01/2016 (07/11/2016 04:49:Annel Chambers RN) Adequate Care: No (07/11/2016 04:49:Annel Chambers RN) Height (in): 65 (07/11/2016 06:06:QS system process) ALLERGIES Medication Allergy: Yes (07/11/2016 04:49:Yarely Martinez RN) Medication Allergies: morphine/ID/Pruritis (09/09/2016) (09/09/2016 01:12:QS system process) Latex Allergy: No Latex Allergies (07/11/2016 04:49:Yarely Martinez RN) Food Allergies: None (07/11/2016 04:49:Alyse Brar RN) Environmental Allergies: None (07/11/2016 04:49:Alyse Brar RN) COMMUNICATION Primary Language: Welsh (07/11/2016 04:49:Annel Chambers RN) Medical Tx Preferred Language: Welsh (07/11/2016 04:49:Yarely Martinez RN) Welsh Communication Ability: Speaks Welsh; Reads Welsh (07/11/2016 04:49:Yarely Martinez RN) DEMOGRAPHICS Address: [address] [place] [id number] (07/11/2016 04:46:QS system process) Zipcode: [id number] (07/11/2016 04:46:QS system process) Home (07/11/2016 04:45:QS system process) Work (07/11/2016 04:45:QS system process) N: [phone] (07/11/2016 04:45:QS system process) Next of Kin Name: JAMI GO (07/11/2016 04:45:QS system process) Next of Kin (07/11/2016 04:45:QS system process) Next of Kin Relationship: SPO (07/11/2016 04:45:QS system process) Date of : 1985 (07/11/2016 04:45:QS system process) Marital Status: (07/11/2016 04:45:QS system process) Sex: Female (07/11/2016 04:45:QS system process) 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 [phone] (07/11/2016 04:49:Alyse Brar RN) Marijuana: No (07/11/2016 04:49:Alyse Brar RN) Cocaine: No (07/11/2016 04:49:Alyse Brar RN) Other Illicit Drugs: No (07/11/2016 04:49:Alyse Brar RN) VACCINE HISTORY Influenza Vaccine: Yes (07/11/2016 04:49:Annel Chambers RN) Influenza Date: 06/18/2016 (07/11/2016 04:49:Annel Chambers RN) Pneumococcal Vaccine: No (07/11/2016 04:49:Alyse Brar RN) Tetanus Vaccine: Yes (07/11/2016 04:49:Annel Chambers RN) Tetanus Date: 06/18/2016 (07/11/2016 04:49:Annel Chambers RN) Tdap Vaccine: Yes (07/11/2016 04:49:ZOHAIB Rose) Tdap Date: 06/18/2016 (07/11/2016 04:49:ZOHAIB Rose) Hepatitis B Vaccine: Yes (07/11/2016 04:49:Alyse Brar RN) Ceo And Founder: [facility] (07/11/2016 04:49:Freida Lilly RN) Feeding Preference: Formula (07/11/2016 04:49:Alyse Brar RN) Benefit of Breast Feed Discussed: Yes (07/11/2016 04:49:ZOHAIB Rose) Circumcision: Yes (07/11/2016 04:49:Freida Lilly RN) Classes Attended: Nubia (07/11/2016 04:49:Freida Lilly RN) Tubal Ligation: No (07/11/2016 04:49:Alyse Brar RN) Tubal Authorization Signed: N/A (07/11/2016 04:49:Alyse Brar RN) Consent: N/A (07/11/2016 04:49:Alyse Brar RN) Consent Signed: N/A (07/11/2016 04:49:Alyse Brar RN) Pain Management Plans: Epidural (07/11/2016 04:49:Freida Lilly RN) Plans for Labor and Delivery: Other, Specify (07/11/2016 04:49:Alyse Brar, RN) Other Labor and Delivery Plans: 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 (07/11/2016 04:49:Alyse Brar, HUSSAIN) Support Person: Jami Go (07/11/2016 04:49:Alyse Brar RN) Support Person Relationship: (07/11/2016 04:49:Alyse Brar, RN) Cultural/Spritual Practice: Nubia (07/11/2016 04:49:Alyse Brar, RN) Spir/Cult Dietary Needs: Nubia (07/11/2016 04:49:Freida Lilly RN) LIVING SITUATION/DISCHARGE PLAN Living Arrangements: House (07/11/2016 04:49:Alyse Brar RN) Adequate Access to:: Electric; Heat; Refrigeration; Plumbing/Running water; Phone; Transportation (07/11/2016 04:49:Alyse Maykel, RN) WIC Program: No (07/11/2016 04:49:Alyse Brar RN) Discharge Compound Finisher Person: Jami Go (07/11/2016 04:49:Alyse Brar RN) Person to Help after Discharge: Jami [place] (07/11/2016 04:49:Alyse Brar RN) Currently Using Commun Resources: No (07/11/2016 04:49:Alyse Brar RN) Outside Agency/Emergency Services Professional: No (07/11/2016 04:49:Alyse Brar RN) Car Seat for Discharge: Yes (07/11/2016 04:49:Alyse Brar RN) Adoption Requested: No (07/11/2016 04:49:Alyse Brar RN) Pt Contact w/ Post : N/A (07/11/2016 04:49:Alyse Brar RN) LABS Blood Type: O Negative (07/11/2016 04:49:Annel Chambers RN) Rho(G) this : Yes (07/11/2016 04:49:Annel Chambers RN) Date Rho(G) Given: 06/18/2016 (07/11/2016 04:49:Annel Chambers RN) Hemoglobin: 7.9 L (Annotations: VERBAL RESULT GIVEN TO Nikki ELDRIDGE RN AT 0825 09/10/16 BY JENARO SCOTT. VERIFIED BY READ BACK.) (09/10/2016 07:27:QS system process) Hematocrit: 25.2 L (09/10/2016 07:27:QS system process) MCV: 79 L (09/10/2016 07:27:QS system process) Group Beta Strep: neg (07/11/2016 04:49:Christiano Soliz RN) Gonorrhea: Negative (07/11/2016 04:49:Annel Chambers RN) Chlamydia: Negative (07/11/2016 04:49:Annel Chambers RN) RPR/VDRL: Nonreactive (07/11/2016 04:49:Annel Chambers RN) HIV Exposure Test: Negative (07/11/2016 04:49:Annel Chambers RN) Hepatitis B: Negative (07/11/2016 04:49:Annel Chambers RN) Rubella: Immune (07/11/2016 04:49:Annel Chambers RN) OB/PREVIOUS HISTORY Previous Procedures: Ultrasound (07/11/2016 04:49:Alyse Brar RN) Current Procedures: Ultrasound (07/11/2016 04:49:Alyse Brar RN) History of Previous : No (07/11/2016 04:49:Alyse Brar RN) History of Gestational Diabetes: No (07/11/2016 04:49:Alyse Brar RN) History of PIH: No (07/11/2016 04:49:Alyse Brar RN) History of Incompetent Cervix: No (07/11/2016 04:49:Alyse Brar RN) History of Placenta Previa/Abrup: No (07/11/2016 04:49:Alyse Brar RN) History of Macrosomia: No (07/11/2016 04:49:Alyse Brar RN) History of IUGR: No (07/11/2016 04:49:Alyse Brar RN) History of Hemorrhage: No (07/11/2016 04:49:Alyse Brar RN) History of Loss/Stillborn: No (07/11/2016 04:49:Alyse Brar RN) History of : No (07/11/2016 04:49:Alyse Brar RN) History of D (Rh) Sensitization: No (07/11/2016 04:49:Alyse Brar RN) History Recurrent Loss/Stillborn: No (07/11/2016 04:49:Alyse Brar RN) History Depression/PP Depression: No (07/11/2016 04:49:Alyse Brar RN) History of Uterine Anomaly/TANNER: No (07/11/2016 04:49:Alyse Brar RN) History of Infertility: No (07/11/2016 04:49:Alyse Brar RN) History of ART Treatment: No (07/11/2016 04:49:Alyse Brar RN) History of TANNER: No (07/11/2016 04:49:Alyse Brar RN) Comments Obstetrical History: G1 - 11/24/10 G2 - current - failed 1 hr gtt (07/11/2016 04:49:Annel Chambers RN) MEDICAL HISTORY Med Hx Diabetes: No (07/11/2016 04:49:Alyse Brar RN) Med Hx Hypertension: No (07/11/2016 04:49:Alyse Brar RN) Med Hx Heart Disease: No (07/11/2016 04:49:Alyse Brar RN) Med Hx Autoimmune Disorder: No (07/11/2016 04:49:Alyse Brar RN) Med Hx Kidney Disease/UTI: No (07/11/2016 04:49:Alyse Brar RN) Med Hx Neurologic/Epilepsy: No (07/11/2016 04:49:Alyse Brar RN) Med Hx Psychiatric Disorders: No (07/11/2016 04:49:Alyse Brar RN) Med Hx Hepatitis/Liver Disease: No (07/11/2016 04:49:Alyse Brar RN) Med Hx Varicosities/Phlebitis: No (07/11/2016 04:49:Alyse Brar RN) Med Hx Thyroid Dysfunction: No (07/11/2016 04:49:Alyse Brar RN) Med Hx Trauma/Violence: No (07/11/2016 04:49:Alyse Brar RN) Med Hx Blood Transfusion: No (07/11/2016 04:49:Alyse Brar RN) Med Hx Pulmonary (Asthma,TB): No (07/11/2016 04:49:Alyse Brar RN) Med Hx Breast: No (07/11/2016 04:49:Alyse Brar RN) Med Hx NURSE GENERAL DUTY Surgery: No (07/11/2016 04:49:Alyse Brar RN) Med Hx Hospitalization/Surgery: Yes (07/11/2016 04:49:Alyse Brar RN) Med Hx Anesthetic Complications: No (07/11/2016 04:49:Alyse Brar RN) Med Hx Abnormal Pap Smear: No (07/11/2016 04:49:Alyse Brar RN) Other Medical Diseases: Yes (07/11/2016 04:49:Alyse Brar RN) Med Hx Significant Family Hx: No (07/11/2016 04:49:Alyse Brar RN) Details of Med/Surg Hx: Hx of Prolactinoma - unable to breastfeed Hospitalized for childbirth (07/11/2016 04:49:Alyse Brar RN) INFECTIOUS HISTORY Inf Hx Gonorrhea: No (07/11/2016 04:49:Alyse Brar RN) Inf Hx Chlamydia: No (07/11/2016 04:49:Alyse Brar RN) Inf Hx Syphilis: No (07/11/2016 04:49:Alyse Brar RN) Inf Hx HIV/AIDS: No (07/11/2016 04:49:Alyse Brar RN) Inf Hx Human Papilloma Virus: No (07/11/2016 04:49:Alyse Brar RN) Inf Hx Pt/Partner Genital Herpes: No (07/11/2016 04:49:Alyse Brar RN) Inf Hx Tuberculosis/Exposure: No (07/11/2016 04:49:Alyse Brar RN) Inf Hx Hepatitis B,C: No (07/11/2016 04:49:Alyse Brar RN) Inf Hx Rash or Viral Illness: No (07/11/2016 04:49:Alyse Brar RN) GENETIC HISTORY Gen Hx Age >=35 at PRIMITIVO: No (07/11/2016 04:49:Alyse Brar RN) Gen Hx Thalassemia: No (07/11/2016 04:49:Alyse Brar RN) Gen Hx Congenital Heart Defect: No (07/11/2016 04:49:Alyse Brar RN) Gen Hx Neural Tube Defect: No (07/11/2016 04:49:Alyse Brar RN) Gen Hx Down's Syndrome: No (07/11/2016 04:49:Alyse Brar RN) Gen Hx Ricardo-Sachs: No (07/11/2016 04:49:Alyse Brar RN) Gen Hx Adia: No (07/11/2016 04:49:Alyse Brar RN) Gen Hx Familial Dysautonomia: No (07/11/2016 04:49:Alyse Brar RN) Gen Hx Sickle Cell Disease/Trait: No (07/11/2016 04:49:Alyse Brar RN) Gen Hx Hemophilia/Blood Disorder: No (07/11/2016 04:49:Alyse Brar RN) Gen Hx Muscular Dystrophy: No (07/11/2016 04:49:Alyse Brar RN) Gen Hx Cystic Fibrosis: No (07/11/2016 04:49:Alyse Brar RN) Gen Hx Huntingtons Chorea: No (07/11/2016 04:49:Alyse Brar RN) Gen Hx Mental Retardation/Autism: No (07/11/2016 04:49:Alyse Brar RN) Gen Hx Tested for Fragile X: No (07/11/2016 04:49:Alyse Brar RN) Gen Hx Other Inher/Chromosomal: No (07/11/2016 04:49:Alyse Brar RN) Gen Hx Maternal Metabolic DO: No (07/11/2016 04:49:Alyse Brar RN) Gen Hx Pt Father or FOB Defect: No (07/11/2016 04:49:Alyse Brar RN) Gen Hx Other Genetic History: No (07/11/2016 04:49:Alyse Brar RN) Gen Hx Drugs/Meds since LMP: No (07/11/2016 04:49:Alyse Brar RN)
--- NOTE | 2016-09-13 06:10 | L&D Current Admission ---
Current Admit Datetime Report Generated by CPN: 09/13/2016 06:00 ADMISSION INFORMATION Current Admit Date/Time: 09/09/2016 05:15 (09/09/2016 05:15:Lorena Ellison RN) Reason for Admission: Onset of Labor; Rupture of Membranes (09/09/2016 05:15:Lorena Ellison RN) Other Reason for Admission: severe N/V/D (07/11/2016 05:00:Alyse Brar RN) Chief Complaint: Contractions; Suspected Rupture of Membranes (09/09/2016 05:15:Cadence Davila RN) Medications During : Vitamin; Rantidine (Zantac) (09/09/2016 05:15:Lorena Ellison RN) EGA per Dates: 40.2 (09/09/2016 05:15:QS system process) Method of Arrival: Wheelchair (09/09/2016 05:15:Lorena Ellison RN) Admitted From: Home (09/09/2016 05:15:Lorena Scot, RN) Reason for Induction: Not Applicable (09/09/2016 05:15:Lorena Ellison RN) Records Available: Yes (09/09/2016 05:15:Lorena Ellison RN) General Admission Information: Reviewed; Updated; Confirmed (09/09/2016 05:15:Lorena Ellison RN) General Admission Reviewed By: Amanda Ellison RN (09/09/2016 05:15:Lorena Ellison RN) BELONGINGS/ADVANCED DIRECTIVES Valuables/Personal Effects: None (07/11/2016 05:00:Alyse Brar RN) Other Belongings: See [facility] belongings form (09/09/2016 05:15:Lorena Ellison RN) Disposition of Belongings: Kept with Patient (07/11/2016 05:00:Alyse Brar RN) Advance Direct for Healthcare: No, but Requests Information (09/09/2016 05:15:Lorena Ellison RN) Durable Power of Jet Inspector: No (09/09/2016 05:15:Lorena Ellison RN) Living Will: No (09/09/2016 05:15:Lorena Ellison RN) Organ Donor: Yes (09/09/2016 05:15:Lorena Ellison RN) Pt Rights Information Given: Yes (09/09/2016 05:15:Lorena Ellison RN) Pt Understands Pt Rights: No (09/09/2016 05:15:Lorena Ellison RN) LEARNING ASSESSMENT Knowledge Level: Understands L_D Process (09/09/2016 05:15:Lorena Ellison RN) Barriers to Learning: Emotional State; Pain (09/09/2016 05:15:Lorena Ellison RN) Learning Readiness: Motivated (09/09/2016 05:15:Lorena Ellison RN) Learns Best By: 1 to 1 Instruction (09/09/2016 05:15:Lorena Ellison RN) Learning Needs: Labor and Delivery Process; Pain Management; Symptoms to Report; Treatment Plan; Medication; Equipment (09/09/2016 05:15:Lorena Ellison RN) DOMESTIC VIOLANCE SCREENING Dom Viol Threatened/Hurt: No (07/11/2016 05:00:Alyse Brar RN) Hx of Abuse/Neglect past 2yrs: No (07/11/2016 05:00:Alyse Brar RN) Feel Unsafe Going Home: No (07/11/2016 05:00:Alyse Brar RN) Addt'l Observ Indicating Abuse: No (07/11/2016 05:00:Alyse Brar RN) Reason Unable to Complete Screen: N/A, Screen Completed (07/11/2016 05:00:Alyse Barr RN) Considered Personal Harm/Suicide: No (07/11/2016 05:00:Alyse Brar RN) NUTRITIONAL/FUNCTIONAL SCREENING Problem with Appetite >5 Days: No (09/09/2016 05:15:Lorena Ellison RN) Chew/Swallow Difficulties: No (09/09/2016 05:15:Lorena Ellison RN) Inappropriate Wt Gain/Loss: No (09/09/2016 05:15:Lorena Ellison RN) Presence Skin Breakdown/Ulcer: No (09/09/2016 05:15:Lorena Ellison RN) Special Diet: No (09/09/2016 05:15:Lorena Ellison RN) Pt Requests Stagecraft Teacher 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
--- NOTE | 2016-09-13 06:10 | L&D General Admission ---
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: [employer] (07/11/2016 04:49:Annel Chambers RN) Month of 1st Visit: 01/2016 (07/11/2016 04:49:Annel Chambers RN) Adequate Care: No (07/11/2016 04:49:Annel Chambers RN) Height (in): 65 (07/11/2016 06:06:QS system process) ALLERGIES Medication Allergy: Yes (07/11/2016 04:49:Yarely Martinez RN) Medication Allergies: morphine/PA/Pruritis (09/09/2016) (09/09/2016 01:12:QS system process) Latex Allergy: No Latex Allergies (07/11/2016 04:49:Yarely Martinez RN) Food Allergies: None (07/11/2016 04:49:Alyse Brar RN) Environmental Allergies: None (07/11/2016 04:49:Aylse Brar RN) COMMUNICATION Primary Language: [place] (07/11/2016 04:49:Annel Chambers RN) Medical Tx Preferred Language: [place] (07/11/2016 04:49:Yarely Martinez RN) [place] Communication Ability: Speaks [place]; Reads [place] (07/11/2016 04:49:Yarely Martinez RN) DEMOGRAPHICS Address: [address] [place] [id number] (07/11/2016 04:46:QS system process) Zipcode: [address] (07/11/2016 04:46:QS system process) Home (07/11/2016 04:45:QS system process) Work (07/11/2016 04:45:QS system process) N: [id number] (07/11/2016 04:45:QS system process) Next of Kin Name: JAMI GO (07/11/2016 04:45:QS system process) Next of Kin (07/11/2016 04:45:QS system process) Next of Kin Relationship: SPO (07/11/2016 04:45:QS system process) Date of : 1985 (07/11/2016 04:45:QS system process) Marital Status: (07/11/2016 04:45:QS system process) Sex: Female (07/11/2016 04:45:QS system process) 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 [id number] (07/11/2016 04:49:Alyse Brar RN) Marijuana: No (07/11/2016 04:49:Alyse Brar RN) Cocaine: No (07/11/2016 04:49:Alyse Brar RN) Other Illicit Drugs: No (07/11/2016 04:49:Alyse Brar RN) VACCINE HISTORY Influenza Vaccine: Yes (07/11/2016 04:49:Annel Chambers RN) Influenza Date: 06/18/2016 (07/11/2016 04:49:Annel Chambers RN) Pneumococcal Vaccine: No (07/11/2016 04:49:Alyse Brar RN) Tetanus Vaccine: Yes (07/11/2016 04:49:Annel Chambers RN) Tetanus Date: 06/18/2016 (07/11/2016 04:49:Annel Chambers RN) Tdap Vaccine: Yes (07/11/2016 04:49:ZOHAIB Rose) Tdap Date: 06/18/2016 (07/11/2016 04:49:ZOHAIB Rose) Hepatitis B Vaccine: Yes (07/11/2016 04:49:Alyse Brar RN) Instructor Dancing: [facility] (07/11/2016 04:49:Freida Lilly RN) Feeding Preference: Formula (07/11/2016 04:49:Alyse Brar RN) Benefit of Breast Feed Discussed: Yes (07/11/2016 04:49:ZOHAIB Rose) Circumcision: Yes (07/11/2016 04:49:Freida Lilly RN) Classes Attended: Nubia (07/11/2016 04:49:Freida Lilly RN) Tubal Ligation: No (07/11/2016 04:49:Alyse Brar RN) Tubal Authorization Signed: N/A (07/11/2016 04:49:Alyse Brar RN) Consent: N/A (07/11/2016 04:49:Alyse Brar RN) Consent Signed: N/A (07/11/2016 04:49:Alyse Brar RN) Pain Management Plans: Epidural (07/11/2016 04:49:Freida Lilly RN) Plans for Labor and Delivery: Other, Specify (07/11/2016 04:49:Alyse Brar, RN) Other Labor and Delivery Plans: 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 (07/11/2016 04:49:Alyse Brar, HUSSAIN) Support Person: Jami Go (07/11/2016 04:49:Alyse Brar RN) Support Person Relationship: (07/11/2016 04:49:Alyse Brar, RN) Cultural/Spritual Practice: Nubia (07/11/2016 04:49:Alyse Brar, RN) Spir/Cult Dietary Needs: Nubia (07/11/2016 04:49:Freida Lilly RN) LIVING SITUATION/DISCHARGE PLAN Living Arrangements: House (07/11/2016 04:49:Alyse Brar RN) Adequate Access to:: Electric; Heat; Refrigeration; Plumbing/Running water; Phone; Transportation (07/11/2016 04:49:Alyse Maykel, RN) WIC Program: No (07/11/2016 04:49:Alyse Brar RN) Discharge Director [employer] Person: Jami Go (07/11/2016 04:49:Alyse Brar RN) Person to Help after Discharge: Jami Tilly (07/11/2016 04:49:Alyse Brar RN) Currently Using Commun Resources: No (07/11/2016 04:49:Alyse Brar RN) Outside Agency/Application Coordinator: No (07/11/2016 04:49:Alyse Brar RN) Car Seat for Discharge: Yes (07/11/2016 04:49:Alyse Brar RN) Adoption Requested: No (07/11/2016 04:49:Alyse Barr RN) Pt Contact w/ Post : N/A (07/11/2016 04:49:Alyse Brar RN) LABS Blood Type: O Negative (07/11/2016 04:49:Annel Chambers RN) Rho(G) this : Yes (07/11/2016 04:49:Annel Chambers RN) Date Rho(G) Given: 06/18/2016 (07/11/2016 04:49:Annel Chambers RN) Hemoglobin: 7.9 L (Annotations: VERBAL RESULT GIVEN TO Nikki ELDRIDGE RN AT 0825 09/10/16 BY JENARO SCOTT. VERIFIED BY READ BACK.) (09/10/2016 07:27:QS system process) Hematocrit: 25.2 L (09/10/2016 07:27:QS system process) MCV: 79 L (09/10/2016 07:27:QS system process) Group Beta Strep: neg (07/11/2016 04:49:Christiano Soliz RN) Gonorrhea: Negative (07/11/2016 04:49:Annel Chambers RN) Chlamydia: Negative (07/11/2016 04:49:Annel Chambers RN) RPR/VDRL: Nonreactive (07/11/2016 04:49:Annel Chambers RN) HIV Exposure Test: Negative (07/11/2016 04:49:Annel Chambers RN) Hepatitis B: Negative (07/11/2016 04:49:Annel Chambers RN) Rubella: Immune (07/11/2016 04:49:Annel Chambers RN) OB/PREVIOUS HISTORY Previous Procedures: Ultrasound (07/11/2016 04:49:Alyse Brar RN) Current Procedures: Ultrasound (07/11/2016 04:49:Alyse Brar RN) History of Previous : No (07/11/2016 04:49:Alyse Brar RN) History of Gestational Diabetes: No (07/11/2016 04:49:Alyse Brar RN) History of PIH: No (07/11/2016 04:49:Alyse Brar RN) History of Incompetent Cervix: No (07/11/2016 04:49:Alyse Brar RN) History of Placenta Previa/Abrup: No (07/11/2016 04:49:Alyse Brar RN) History of Macrosomia: No (07/11/2016 04:49:Alyse Brar RN) History of IUGR: No (07/11/2016 04:49:Alyse Brar RN) History of Hemorrhage: No (07/11/2016 04:49:Alyse Brar RN) History of Loss/Stillborn: No (07/11/2016 04:49:Alyse Brar RN) History of : No (07/11/2016 04:49:Alyse Brar RN) History of D (Rh) Sensitization: No (07/11/2016 04:49:Alyse Brar RN) History Recurrent Loss/Stillborn: No (07/11/2016 04:49:Alyse Brar RN) History Depression/PP Depression: No (07/11/2016 04:49:Alyse Brar RN) History of Uterine Anomaly/TANNER: No (07/11/2016 04:49:Alyse Brar RN) History of Infertility: No (07/11/2016 04:49:Alyse Brar RN) History of ART Treatment: No (07/11/2016 04:49:Alyse Brar RN) History of TANNER: No (07/11/2016 04:49:Alyse Brar RN) Comments Obstetrical History: G1 - 11/24/10 G2 - current - failed 1 hr gtt (07/11/2016 04:49:Annel Chambers RN) MEDICAL HISTORY Med Hx Diabetes: No (07/11/2016 04:49:Alyse Brar RN) Med Hx Hypertension: No (07/11/2016 04:49:Alyse Brar RN) Med Hx Heart Disease: No (07/11/2016 04:49:Alyse Brar RN) Med Hx Autoimmune Disorder: No (07/11/2016 04:49:Alyse Brar RN) Med Hx Kidney Disease/UTI: No (07/11/2016 04:49:Alyse Brar RN) Med Hx Neurologic/Epilepsy: No (07/11/2016 04:49:Alyse Brar RN) Med Hx Psychiatric Disorders: No (07/11/2016 04:49:Alyse Brar RN) Med Hx Hepatitis/Liver Disease: No (07/11/2016 04:49:Alyse Brar RN) Med Hx Varicosities/Phlebitis: No (07/11/2016 04:49:Alyse Brar RN) Med Hx Thyroid Dysfunction: No (07/11/2016 04:49:Alyse Brar RN) Med Hx Trauma/Violence: No (07/11/2016 04:49:Alyse Brar RN) Med Hx Blood Transfusion: No (07/11/2016 04:49:Alyse Brar RN) Med Hx Pulmonary (Asthma,TB): No (07/11/2016 04:49:Alyse Brar RN) Med Hx Breast: No (07/11/2016 04:49:Alyse Brar RN) 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 (07/11/2016 04:49:Alyse Brar RN) Med Hx Hospitalization/Surgery: Yes (07/11/2016 04:49:Alyse Brar RN) Med Hx Anesthetic Complications: No (07/11/2016 04:49:Alyse Brar RN) Med Hx Abnormal Pap Smear: No (07/11/2016 04:49:Alyse Brar RN) Other Medical Diseases: Yes (07/11/2016 04:49:Alyse Brar RN) Med Hx Significant Family Hx: No (07/11/2016 04:49:Alyse Brar RN) Details of Med/Surg Hx: Hx of Prolactinoma - unable to breastfeed Hospitalized for childbirth (07/11/2016 04:49:Alyse Brar RN) INFECTIOUS HISTORY Inf Hx Gonorrhea: No (07/11/2016 04:49:Alyse Brar RN) Inf Hx Chlamydia: No (07/11/2016 04:49:Alyse Brar RN) Inf Hx Syphilis: No (07/11/2016 04:49:Alyse Brar RN) Inf Hx HIV/AIDS: No (07/11/2016 04:49:Alyse Brar RN) Inf Hx Human Papilloma Virus: No (07/11/2016 04:49:Alyse Brar RN) Inf Hx Pt/Partner Genital Herpes: No (07/11/2016 04:49:Alyse Brar RN) Inf Hx Tuberculosis/Exposure: No (07/11/2016 04:49:Alyse Brar RN) Inf Hx Hepatitis B,C: No (07/11/2016 04:49:Alyse Brar RN) Inf Hx Rash or Viral Illness: No (07/11/2016 04:49:Alyse Brar RN) GENETIC HISTORY Gen Hx Age >=35 at PRIMITIVO: No (07/11/2016 04:49:Alyse Brar RN) Gen Hx Thalassemia: No (07/11/2016 04:49:Alyse Brar RN) Gen Hx Congenital Heart Defect: No (07/11/2016 04:49:Alyse Brar RN) Gen Hx Neural Tube Defect: No (07/11/2016 04:49:Alyse Brar RN) Gen Hx Down's Syndrome: No (07/11/2016 04:49:Alyse Brar RN) Gen Hx Ricardo-Sachs: No (07/11/2016 04:49:Alyse Brar RN) Gen Hx Adia: No (07/11/2016 04:49:Alyse Brar RN) Gen Hx Familial Dysautonomia: No (07/11/2016 04:49:Alyse Brar RN) Gen Hx Sickle Cell Disease/Trait: No (07/11/2016 04:49:Alyse Brar RN) Gen Hx Hemophilia/Blood Disorder: No (07/11/2016 04:49:Alyse Brar RN) Gen Hx Muscular Dystrophy: No (07/11/2016 04:49:Alyse Brar RN) Gen Hx Cystic Fibrosis: No (07/11/2016 04:49:Alyse Brar RN) Gen Hx Huntingtons Chorea: No (07/11/2016 04:49:Alyse Brar RN) Gen Hx Mental Retardation/Autism: No (07/11/2016 04:49:Alyse Brar RN) Gen Hx Tested for Fragile X: No (07/11/2016 04:49:Alsye Brar RN) Gen Hx Other Inher/Chromosomal: No (07/11/2016 04:49:Alyse Brar RN) Gen Hx Maternal Metabolic DO: No (07/11/2016 04:49:Alyse Brar RN) Gen Hx Pt Father or FOB Defect: No (07/11/2016 04:49:Alyse Brar RN) Gen Hx Other Genetic History: No (07/11/2016 04:49:Alyse Brar RN) Gen Hx Drugs/Meds since LMP: No (07/11/2016 04:49:Alyse Brar RN)
--- NOTE | 2016-09-14 06:10 | L&D Current Admission ---
Current Admit Datetime Report Generated by CPN: 09/14/2016 06:00 ADMISSION INFORMATION Current Admit Date/Time: 09/09/2016 05:15 (09/09/2016 05:15:Lorena Ellison RN) Reason for Admission: Onset of Labor; Rupture of Membranes (09/09/2016 05:15:Lorena Ellison RN) Other Reason for Admission: severe N/V/D (07/11/2016 05:00:Alyse Brar RN) Chief Complaint: Contractions; Suspected Rupture of Membranes (09/09/2016 05:15:Cadence Davila RN) Medications During : Vitamin; Rantidine (Zantac) (09/09/2016 05:15:Lorena Ellison RN) EGA per Dates: 40.2 (09/09/2016 05:15:QS system process) Method of Arrival: Wheelchair (09/09/2016 05:15:Lorena Ellison RN) Admitted From: Home (09/09/2016 05:15:Lorena Scot, RN) Reason for Induction: Not Applicable (09/09/2016 05:15:Lorena Ellison RN) Records Available: Yes (09/09/2016 05:15:Lorena Ellison RN) General Admission Information: Reviewed; Updated; Confirmed (09/09/2016 05:15:Lorena Ellison RN) General Admission Reviewed By: Amanda Ellison RN (09/09/2016 05:15:Lorena Ellison RN) BELONGINGS/ADVANCED DIRECTIVES Valuables/Personal Effects: None (07/11/2016 05:00:Alyse Brar RN) Other Belongings: See [facility] belongings form (09/09/2016 05:15:Lorena Ellison RN) Disposition of Belongings: Kept with Patient (07/11/2016 05:00:Alyse Brar RN) Advance Direct for Healthcare: No, but Requests Information (09/09/2016 05:15:Lorena Ellison RN) Durable Power of Proof Sorter: No (09/09/2016 05:15:Lorena Ellison RN) Living Will: No (09/09/2016 05:15:Lorena Ellison RN) Organ Donor: Yes (09/09/2016 05:15:Lorena Ellison RN) Pt Rights Information Given: Yes (09/09/2016 05:15:Lorena Ellison RN) Pt Understands Pt Rights: No (09/09/2016 05:15:Lorena Ellison RN) LEARNING ASSESSMENT Knowledge Level: Understands L_D Process (09/09/2016 05:15:Lorena Ellison RN) Barriers to Learning: Emotional State; Pain (09/09/2016 05:15:Lorena Ellison RN) Learning Readiness: Motivated (09/09/2016 05:15:Lorena Ellison RN) Learns Best By: 1 to 1 Instruction (09/09/2016 05:15:Lorena Ellison RN) Learning Needs: Labor and Delivery Process; Pain Management; Symptoms to Report; Treatment Plan; Medication; Equipment (09/09/2016 05:15:Lorena Ellison RN) DOMESTIC VIOLANCE SCREENING Dom Viol Threatened/Hurt: No (07/11/2016 05:00:Alyse Brar RN) Hx of Abuse/Neglect past 2yrs: No (07/11/2016 05:00:Alyse Brar RN) Feel Unsafe Going Home: No (07/11/2016 05:00:Alyse Brar RN) Addt'l Observ Indicating Abuse: No (07/11/2016 05:00:Alyse Brar RN) Reason Unable to Complete Screen: N/A, Screen Completed (07/11/2016 05:00:Alyse Brar RN) Considered Personal Harm/Suicide: No (07/11/2016 05:00:Alyse Brar RN) NUTRITIONAL/FUNCTIONAL SCREENING Problem with Appetite >5 Days: No (09/09/2016 05:15:Lorena Ellison RN) Chew/Swallow Difficulties: No (09/09/2016 05:15:Lorena Ellison RN) Inappropriate Wt Gain/Loss: No (09/09/2016 05:15:Lorena Ellison RN) Presence Skin Breakdown/Ulcer: No (09/09/2016 05:15:Lorena Ellison RN) Special Diet: No (09/09/2016 05:15:Lorena Ellison RN) Pt Requests Healthcare Liaison 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
--- NOTE | 2016-09-14 06:10 | L&D General Admission ---
General Admit Datetime Report Generated by CPN: 09/14/2016 06:00 INFORMATION Patient Age: 30 (07/11/2016 04:45:QS system process) EDC: 09/07/2016 00:00 (07/11/2016 04:49:Mahogany Valerio RN) : 2 (07/11/2016 04:49:Yarely Martinez RN) Para: 1 (09/09/2016 03:20:Freida Lilly RN) Term: 1 (07/11/2016 04:49:Yarely Martinez RN) : 0 (07/11/2016 04:49:Yarely Martinez RN) Spontaneous Abortions: 0 (07/11/2016 04:49:Yarely Martinez RN) Induced Abortions: 0 (07/11/2016 04:49:Yarely Martinez RN) Livin (07/11/2016 04:49:Yarely Martinez RN) Baby, Number in Womb: 1 (09/09/2016 03:20:Freida Lilly RN) CARE Primary Runway Model: [facility] (07/11/2016 04:49:Annel Chambers RN) Month of 1st Visit: 01/2016 (07/11/2016 04:49:Annel Chambers RN) Adequate Care: No (07/11/2016 04:49:Annel Chambers RN) Height (in): 65 (07/11/2016 06:06:QS system process) ALLERGIES Medication Allergy: Yes (07/11/2016 04:49:Yarely Martinez RN) Medication Allergies: morphine/OK/Pruritis (09/09/2016) (09/09/2016 01:12:QS system process) Latex Allergy: No Latex Allergies (07/11/2016 04:49:Yarely Martinez RN) Food Allergies: None (07/11/2016 04:49:Alyse Brar RN) Environmental Allergies: None (07/11/2016 04:49:Alyse Brar RN) COMMUNICATION Primary Language: Estonian (07/11/2016 04:49:Annel Chambers RN) Medical Tx Preferred Language: Estonian (07/11/2016 04:49:Yarely Martinez RN) Estonian Communication Ability: Speaks Estonian; Reads Estonian (07/11/2016 04:49:Yarely Martinez RN) DEMOGRAPHICS Address: [address] [place] [id number] (07/11/2016 04:46:QS system process) Zipcode: [address] (07/11/2016 04:46:QS system process) Home (07/11/2016 04:45:QS system process) Work (07/11/2016 04:45:QS system process) N: [phone] (07/11/2016 04:45:QS system process) Next of Kin Name: JAMI GO (07/11/2016 04:45:QS system process) Next of Kin (07/11/2016 04:45:QS system process) Next of Kin Relationship: SPO (07/11/2016 04:45:QS system process) Date of : 1985 (07/11/2016 04:45:QS system process) Marital Status: (07/11/2016 04:45:QS system process) Sex: Female (07/11/2016 04:45:QS system process) 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 [phone] (07/11/2016 04:49:Alyse Brar RN) Marijuana: No (07/11/2016 04:49:Alyse Brar RN) Cocaine: No (07/11/2016 04:49:Alyse Brar RN) Other Illicit Drugs: No (07/11/2016 04:49:Alyse Brar RN) VACCINE HISTORY Influenza Vaccine: Yes (07/11/2016 04:49:Annel Chambers RN) Influenza Date: 06/18/2016 (07/11/2016 04:49:Annel Chambers RN) Pneumococcal Vaccine: No (07/11/2016 04:49:Alyse Brar RN) Tetanus Vaccine: Yes (07/11/2016 04:49:Annel Chambers RN) Tetanus Date: 06/18/2016 (07/11/2016 04:49:Annel Chambers RN) Tdap Vaccine: Yes (07/11/2016 04:49:ZOHAIB Rose) Tdap Date: 06/18/2016 (07/11/2016 04:49:ZOHAIB Rose) Hepatitis B Vaccine: Yes (07/11/2016 04:49:Alyse Brar RN) Beef Breaker: [facility] (07/11/2016 04:49:Freida Lilly RN) Feeding Preference: Formula (07/11/2016 04:49:Alyse Brar RN) Benefit of Breast Feed Discussed: Yes (07/11/2016 04:49:ZOHAIB Rose) Circumcision: Yes (07/11/2016 04:49:Freida Lilly RN) Classes Attended: Nubia (07/11/2016 04:49:Freida Lilly RN) Tubal Ligation: No (07/11/2016 04:49:Alyse Brar RN) Tubal Authorization Signed: N/A (07/11/2016 04:49:Alyse Brar RN) Consent: N/A (07/11/2016 04:49:Alyse Brar RN) Consent Signed: N/A (07/11/2016 04:49:Alyse Brar RN) Pain Management Plans: Epidural (07/11/2016 04:49:Freida Lilly RN) Plans for Labor and Delivery: Other, Specify (07/11/2016 04:49:Alyse Brar, RN) Other Labor and Delivery Plans: 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 (07/11/2016 04:49:Alyse Brar, HUSSAIN) Support Person: Jami Go (07/11/2016 04:49:Alyse Brar RN) Support Person Relationship: (07/11/2016 04:49:Alyse Brar, RN) Cultural/Spritual Practice: Nubia (07/11/2016 04:49:Alyse Brar, RN) Spir/Cult Dietary Needs: Nubia (07/11/2016 04:49:Freida Lilly RN) LIVING SITUATION/DISCHARGE PLAN Living Arrangements: House (07/11/2016 04:49:Alyse Brar RN) Adequate Access to:: Electric; Heat; Refrigeration; Plumbing/Running water; Phone; Transportation (07/11/2016 04:49:Alyse Maykel, RN) WIC Program: No (07/11/2016 04:49:Alyse Brar RN) 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: Jami Go (07/11/2016 04:49:Alyse Brar RN) Person to Help after Discharge: Jami [place] (07/11/2016 04:49:Alyse Brar RN) Currently Using Commun Resources: No (07/11/2016 04:49:Alyse Brar RN) Outside Agency/Industrial Analyst: No (07/11/2016 04:49:Alyse Brar RN) Car Seat for Discharge: Yes (07/11/2016 04:49:Alyse Brar RN) Adoption Requested: No (07/11/2016 04:49:Alyse Brar RN) Pt Contact w/ Post : N/A (07/11/2016 04:49:Alyse Brar RN) LABS Blood Type: O Negative (07/11/2016 04:49:Annel Chambers RN) Rho(G) this : Yes (07/11/2016 04:49:Annel Chambers RN) Date Rho(G) Given: 06/18/2016 (07/11/2016 04:49:Annel Chambers RN) Hemoglobin: 7.9 L (Annotations: VERBAL RESULT GIVEN TO Nkiki ELDRIDGE RN AT 0825 09/10/16 BY JENARO SCOTT. VERIFIED BY READ BACK.) (09/10/2016 07:27:QS system process) Hematocrit: 25.2 L (09/10/2016 07:27:QS system process) MCV: 79 L (09/10/2016 07:27:QS system process) Group Beta Strep: neg (07/11/2016 04:49:Christiano Soliz RN) Gonorrhea: Negative (07/11/2016 04:49:Annel Chambers RN) Chlamydia: Negative (07/11/2016 04:49:Annel Chambers RN) RPR/VDRL: Nonreactive (07/11/2016 04:49:Annel Chambers RN) HIV Exposure Test: Negative (07/11/2016 04:49:Annel Chambers RN) Hepatitis B: Negative (07/11/2016 04:49:Annel Chambers RN) Rubella: Immune (07/11/2016 04:49:Annel Chambers RN) OB/PREVIOUS HISTORY Previous Procedures: Ultrasound (07/11/2016 04:49:Alyse Brar RN) Current Procedures: Ultrasound (07/11/2016 04:49:Alyse Brar RN) History of Previous : No (07/11/2016 04:49:Alyse Brar RN) History of Gestational Diabetes: No (07/11/2016 04:49:Alyse Brar RN) History of PIH: No (07/11/2016 04:49:Alyse Brar RN) History of Incompetent Cervix: No (07/11/2016 04:49:Alyse Brar RN) History of Placenta Previa/Abrup: No (07/11/2016 04:49:Alyse Brar RN) History of Macrosomia: No (07/11/2016 04:49:Alyse Brar RN) History of IUGR: No (07/11/2016 04:49:Alyse Brar RN) History of Hemorrhage: No (07/11/2016 04:49:Alyse Brar RN) History of Loss/Stillborn: No (07/11/2016 04:49:Alyse Brar RN) History of : No (07/11/2016 04:49:Alyse Brar RN) History of D (Rh) Sensitization: No (07/11/2016 04:49:Alyse Brar RN) History Recurrent Loss/Stillborn: No (07/11/2016 04:49:Alyse Brar RN) History Depression/PP Depression: No (07/11/2016 04:49:Alyse Brar RN) History of Uterine Anomaly/TANNER: No (07/11/2016 04:49:Alyse Brar RN) History of Infertility: No (07/11/2016 04:49:Alyse Brar RN) History of ART Treatment: No (07/11/2016 04:49:Alyse Brar RN) History of TANNER: No (07/11/2016 04:49:Alyse Brar RN) Comments Obstetrical History: G1 - 11/24/10 G2 - current - failed 1 hr gtt (07/11/2016 04:49:Annel Chambers RN) MEDICAL HISTORY Med Hx Diabetes: No (07/11/2016 04:49:Alyse Brar RN) Med Hx Hypertension: No (07/11/2016 04:49:Alyse Brar RN) Med Hx Heart Disease: No (07/11/2016 04:49:Alyse Brar RN) Med Hx Autoimmune Disorder: No (07/11/2016 04:49:Alyse Brar RN) Med Hx Kidney Disease/UTI: No (07/11/2016 04:49:Alyse Brar RN) Med Hx Neurologic/Epilepsy: No (07/11/2016 04:49:Alyse Brar RN) Med Hx Psychiatric Disorders: No (07/11/2016 04:49:Alyse Brar RN) Med Hx Hepatitis/Liver Disease: No (07/11/2016 04:49:Alyse Brar RN) Med Hx Varicosities/Phlebitis: No (07/11/2016 04:49:Alyse Brar RN) Med Hx Thyroid Dysfunction: No (07/11/2016 04:49:Alyse Brar RN) Med Hx Trauma/Violence: No (07/11/2016 04:49:Alyse Brar RN) Med Hx Blood Transfusion: No (07/11/2016 04:49:Alyse Brar RN) Med Hx Pulmonary (Asthma,TB): No (07/11/2016 04:49:Alyse Brar RN) Med Hx Breast: No (07/11/2016 04:49:Alyse Brar RN) Med 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 (07/11/2016 04:49:Alyse Brar RN) Med Hx Hospitalization/Surgery: Yes (07/11/2016 04:49:Alyse Brar RN) Med Hx Anesthetic Complications: No (07/11/2016 04:49:Alyse Brar RN) Med Hx Abnormal Pap Smear: No (07/11/2016 04:49:Alyse Brar RN) Other Medical Diseases: Yes (07/11/2016 04:49:Alyse Brar RN) Med Hx Significant Family Hx: No (07/11/2016 04:49:Alyse Brar RN) Details of Med/Surg Hx: Hx of Prolactinoma - unable to breastfeed Hospitalized for childbirth (07/11/2016 04:49:Alyse Brar RN) INFECTIOUS HISTORY Inf Hx Gonorrhea: No (07/11/2016 04:49:Alyse Brar RN) Inf Hx Chlamydia: No (07/11/2016 04:49:Alyse Brar RN) Inf Hx Syphilis: No (07/11/2016 04:49:Alyse Brar RN) Inf Hx HIV/AIDS: No (07/11/2016 04:49:Alyse Brar RN) Inf Hx Human Papilloma Virus: No (07/11/2016 04:49:Alyse Brar RN) Inf Hx Pt/Partner Genital Herpes: No (07/11/2016 04:49:Alyse Brar RN) Inf Hx Tuberculosis/Exposure: No (07/11/2016 04:49:Alyse Brar RN) Inf Hx Hepatitis B,C: No (07/11/2016 04:49:Alyse Brar RN) Inf Hx Rash or Viral Illness: No (07/11/2016 04:49:Alyse Brar RN) GENETIC HISTORY Gen Hx Age >=35 at PRIMITIVO: No (07/11/2016 04:49:Alyse Brar RN) Gen Hx Thalassemia: No (07/11/2016 04:49:Alyse Brar RN) Gen Hx Congenital Heart Defect: No (07/11/2016 04:49:Alyse Brar RN) Gen Hx Neural Tube Defect: No (07/11/2016 04:49:Alyse Brar RN) Gen Hx Down's Syndrome: No (07/11/2016 04:49:Alyse Brar RN) Gen Hx Ricardo-Sachs: No (07/11/2016 04:49:Alyse Brar RN) Gen Hx Adia: No (07/11/2016 04:49:Alyse Brar RN) Gen Hx Familial Dysautonomia: No (07/11/2016 04:49:Alyse Brar RN) Gen Hx Sickle Cell Disease/Trait: No (07/11/2016 04:49:Alyse Brar RN) Gen Hx Hemophilia/Blood Disorder: No (07/11/2016 04:49:Alyse Brar RN) Gen Hx Muscular Dystrophy: No (07/11/2016 04:49:Alyse Brar RN) Gen Hx Cystic Fibrosis: No (07/11/2016 04:49:Alyse Brar RN) Gen Hx Huntingtons Chorea: No (07/11/2016 04:49:Alyse Brar RN) Gen Hx Mental Retardation/Autism: No (07/11/2016 04:49:Alyse Brar RN) Gen Hx Tested for Fragile X: No (07/11/2016 04:49:Alyse Brar RN) Gen Hx Other Inher/Chromosomal: No (07/11/2016 04:49:Alyse Brar RN) Gen Hx Maternal Metabolic DO: No (07/11/2016 04:49:Alyse Brar RN) Gen Hx Pt Father or FOB Defect: No (07/11/2016 04:49:Alyse Brar RN) Gen Hx Other Genetic History: No (07/11/2016 04:49:Alyse Brar RN) Gen Hx Drugs/Meds since LMP: No (07/11/2016 04:49:Alyse Brar RN)
--- NOTE | 2016-09-15 06:10 | L&D Current Admission ---
Current Admit Datetime Report Generated by CPN: 09/15/2016 06:00 ADMISSION INFORMATION Current Admit Date/Time: 09/09/2016 05:15 (09/09/2016 05:15:Lorena Ellison RN) Reason for Admission: Onset of Labor; Rupture of Membranes (09/09/2016 05:15:Lorena Ellison RN) Other Reason for Admission: severe N/V/D (07/11/2016 05:00:Alyse Brar RN) Chief Complaint: Contractions; Suspected Rupture of Membranes (09/09/2016 05:15:Cadence Davila RN) Medications During : Vitamin; Rantidine (Zantac) (09/09/2016 05:15:Lorena Ellison RN) EGA per Dates: 40.2 (09/09/2016 05:15:QS system process) Method of Arrival: Wheelchair (09/09/2016 05:15:Lorena Ellison RN) Admitted From: Home (09/09/2016 05:15:Lorena Scot, RN) Reason for Induction: Not Applicable (09/09/2016 05:15:Lorena Ellison RN) Records Available: Yes (09/09/2016 05:15:Lorena Ellison RN) General Admission Information: Reviewed; Updated; Confirmed (09/09/2016 05:15:Lorena Ellison RN) General Admission Reviewed By: Amanda Ellison RN (09/09/2016 05:15:Lorena Ellison RN) BELONGINGS/ADVANCED DIRECTIVES Valuables/Personal Effects: None (07/11/2016 05:00:Alyse Brar RN) Other Belongings: See [facility] belongings form (09/09/2016 05:15:Lorena Ellison RN) Disposition of Belongings: Kept with Patient (07/11/2016 05:00:Alyse Brar RN) Advance Direct for Healthcare: No, but Requests Information (09/09/2016 05:15:Lorena Ellison RN) Durable Power of Instructional Material Director: No (09/09/2016 05:15:Lorena Ellison RN) Living Will: No (09/09/2016 05:15:Lorena Ellison RN) Organ Donor: Yes (09/09/2016 05:15:Lorena Ellison RN) Pt Rights Information Given: Yes (09/09/2016 05:15:Lorena Ellison RN) Pt Understands Pt Rights: No (09/09/2016 05:15:Lorena Ellison RN) LEARNING ASSESSMENT Knowledge Level: Understands L_D Process (09/09/2016 05:15:Lorena Ellison RN) Barriers to Learning: Emotional State; Pain (09/09/2016 05:15:Lorena Ellison RN) Learning Readiness: Motivated (09/09/2016 05:15:Lorena Ellison RN) Learns Best By: 1 to 1 Instruction (09/09/2016 05:15:Lorena Ellison RN) Learning Needs: Labor and Delivery Process; Pain Management; Symptoms to Report; Treatment Plan; Medication; Equipment (09/09/2016 05:15:Lorena Ellison RN) DOMESTIC VIOLANCE SCREENING Dom Viol Threatened/Hurt: No (07/11/2016 05:00:Alyse Brar RN) Hx of Abuse/Neglect past 2yrs: No (07/11/2016 05:00:Alyse Brar RN) Feel Unsafe Going Home: No (07/11/2016 05:00:Alyse Brar RN) Addt'l Observ Indicating Abuse: No (07/11/2016 05:00:Alyse Brar RN) Reason Unable to Complete Screen: N/A, Screen Completed (07/11/2016 05:00:Alyse Brar RN) Considered Personal Harm/Suicide: No (07/11/2016 05:00:Alyse Brar RN) NUTRITIONAL/FUNCTIONAL SCREENING Problem with Appetite >5 Days: No (09/09/2016 05:15:Lorena Ellison RN) Chew/Swallow Difficulties: No (09/09/2016 05:15:Lorena Ellison RN) Inappropriate Wt Gain/Loss: No (09/09/2016 05:15:Lorena Ellison RN) Presence Skin Breakdown/Ulcer: No (09/09/2016 05:15:Lorena Ellison RN) Special Diet: No (09/09/2016 05:15:Lorena Ellison RN) Pt Requests Process Improvement Specialist 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
--- NOTE | 2016-09-15 06:11 | L&D General Admission ---
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: [employer] (07/11/2016 04:49:Annel Chambers RN) Month of 1st Visit: 01/2016 (07/11/2016 04:49:Annel Chambers RN) Adequate Care: No (07/11/2016 04:49:Annel Chambers RN) Height (in): 65 (07/11/2016 06:06:QS system process) ALLERGIES Medication Allergy: Yes (07/11/2016 04:49:Yarely Martinez RN) Medication Allergies: morphine/NE/Pruritis (09/09/2016) (09/09/2016 01:12:QS system process) Latex Allergy: No Latex Allergies (07/11/2016 04:49:Yarely Martinez RN) Food Allergies: None (07/11/2016 04:49:Alyse Brar RN) Environmental Allergies: None (07/11/2016 04:49:Alyse Brar RN) COMMUNICATION Primary Language: Guatemalan (07/11/2016 04:49:Annel Chambers RN) Medical Tx Preferred Language: Guatemalan (07/11/2016 04:49:Yarely Martinez RN) Guatemalan Communication Ability: Speaks Guatemalan; Reads Guatemalan (07/11/2016 04:49:Yarely Martinez RN) DEMOGRAPHICS Address: [address] [place] [id number] (07/11/2016 04:46:QS system process) Zipcode: [address] (07/11/2016 04:46:QS system process) Home (07/11/2016 04:45:QS system process) Work (07/11/2016 04:45:QS system process) N: [phone] (07/11/2016 04:45:QS system process) Next of Kin Name: JAMI GO (07/11/2016 04:45:QS system process) Next of Kin (07/11/2016 04:45:QS system process) Next of Kin Relationship: SPO (07/11/2016 04:45:QS system process) Date of : 1985 (07/11/2016 04:45:QS system process) Marital Status: (07/11/2016 04:45:QS system process) Sex: Female (07/11/2016 04:45:QS system process) 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 [phone] (07/11/2016 04:49:Alyse Brar RN) Marijuana: No (07/11/2016 04:49:Alyse Brar RN) Cocaine: No (07/11/2016 04:49:Alyse Brar RN) Other Illicit Drugs: No (07/11/2016 04:49:Alyse Brar RN) VACCINE HISTORY Influenza Vaccine: Yes (07/11/2016 04:49:Annel Chambers RN) Influenza Date: 06/18/2016 (07/11/2016 04:49:Annel Chambers RN) Pneumococcal Vaccine: No (07/11/2016 04:49:Alyse Brar RN) Tetanus Vaccine: Yes (07/11/2016 04:49:Annel Chambers RN) Tetanus Date: 06/18/2016 (07/11/2016 04:49:Annel Chambers RN) Tdap Vaccine: Yes (07/11/2016 04:49:ZOHAIB Rose) Tdap Date: 06/18/2016 (07/11/2016 04:49:ZOHAIB Rose) Hepatitis B Vaccine: Yes (07/11/2016 04:49:Alyse Brar RN) 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: [facility] (07/11/2016 04:49:Freida Lilly RN) Feeding Preference: Formula (07/11/2016 04:49:Alyse Brar RN) Benefit of Breast Feed Discussed: Yes (07/11/2016 04:49:ZOHAIB Rose) Circumcision: Yes (07/11/2016 04:49:Freida Lilly RN) Classes Attended: Nubia (07/11/2016 04:49:Freida Lilly RN) Tubal Ligation: No (07/11/2016 04:49:Alyse Brar RN) Tubal Authorization Signed: N/A (07/11/2016 04:49:Alyse Brar RN) Consent: N/A (07/11/2016 04:49:Alyse Brar RN) Consent Signed: N/A (07/11/2016 04:49:Alyse Brar RN) Pain Management Plans: Epidural (07/11/2016 04:49:Freida Lilly RN) Plans for Labor and Delivery: Other, Specify (07/11/2016 04:49:Alyse Brar, RN) Other Labor and Delivery Plans: 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 (07/11/2016 04:49:Alyse Brar, HUSSAIN) Support Person: Jami Go (07/11/2016 04:49:Alyse Brar RN) Support Person Relationship: (07/11/2016 04:49:Alyse Brar, RN) Cultural/Spritual Practice: Nubia (07/11/2016 04:49:Alyse Brar, RN) Spir/Cult Dietary Needs: Nubia (07/11/2016 04:49:Freida Lilly RN) LIVING SITUATION/DISCHARGE PLAN Living Arrangements: House (07/11/2016 04:49:Alyse Brar RN) Adequate Access to:: Electric; Heat; Refrigeration; Plumbing/Running water; Phone; Transportation (07/11/2016 04:49:Alyse Maykel, RN) WIC Program: No (07/11/2016 04:49:Alyse Brar RN) Discharge Concrete Spreader Person: Jami Go (07/11/2016 04:49:Alyse Brar RN) Person to Help after Discharge: Jami [place] (07/11/2016 04:49:Alyse Brar RN) Currently Using Commun Resources: No (07/11/2016 04:49:Alyse Brar RN) Outside Agency/Heat Seal Operator: No (07/11/2016 04:49:Alyse Brar RN) Car Seat for Discharge: Yes (07/11/2016 04:49:Alyse Brar RN) Adoption Requested: No (07/11/2016 04:49:Alyse Brar RN) Pt Contact w/ Post : N/A (07/11/2016 04:49:Alyse Brar RN) LABS Blood Type: O Negative (07/11/2016 04:49:Annel Chambers RN) Rho(G) this : Yes (07/11/2016 04:49:Annel Chambers RN) Date Rho(G) Given: 06/18/2016 (07/11/2016 04:49:Annel Chambers RN) Hemoglobin: 7.9 L (Annotations: VERBAL RESULT GIVEN TO Nikki ELDRIDGE RN AT 0825 09/10/16 BY JENARO SCOTT. VERIFIED BY READ BACK.) (09/10/2016 07:27:QS system process) Hematocrit: 25.2 L (09/10/2016 07:27:QS system process) MCV: 79 L (09/10/2016 07:27:QS system process) Group Beta Strep: neg (07/11/2016 04:49:Christiano Soliz RN) Gonorrhea: Negative (07/11/2016 04:49:Annel Chambers RN) Chlamydia: Negative (07/11/2016 04:49:Annel Chambers RN) RPR/VDRL: Nonreactive (07/11/2016 04:49:Annel Chambers RN) HIV Exposure Test: Negative (07/11/2016 04:49:Annel Chambers RN) Hepatitis B: Negative (07/11/2016 04:49:Annel Chambers RN) Rubella: Immune (07/11/2016 04:49:Annel Chambers RN) OB/PREVIOUS HISTORY Previous Procedures: Ultrasound (07/11/2016 04:49:Alyse Brar RN) Current Procedures: Ultrasound (07/11/2016 04:49:Alyse Brar RN) History of Previous : No (07/11/2016 04:49:Alyse Brar RN) History of Gestational Diabetes: No (07/11/2016 04:49:Alyse Brar RN) History of PIH: No (07/11/2016 04:49:Alyse Brar RN) History of Incompetent Cervix: No (07/11/2016 04:49:Alyse Brar RN) History of Placenta Previa/Abrup: No (07/11/2016 04:49:Alyse Brar RN) History of Macrosomia: No (07/11/2016 04:49:Alyse Brar RN) History of IUGR: No (07/11/2016 04:49:Alyse Brar RN) History of Hemorrhage: No (07/11/2016 04:49:Alyse Brar RN) History of Loss/Stillborn: No (07/11/2016 04:49:Alyse Brar RN) History of : No (07/11/2016 04:49:Alyse Brar RN) History of D (Rh) Sensitization: No (07/11/2016 04:49:Alyse Brar RN) History Recurrent Loss/Stillborn: No (07/11/2016 04:49:Alyse Brar RN) History Depression/PP Depression: No (07/11/2016 04:49:Alyse Brar RN) History of Uterine Anomaly/TANNER: No (07/11/2016 04:49:Alyse Brar RN) History of Infertility: No (07/11/2016 04:49:Alyse Brar RN) History of ART Treatment: No (07/11/2016 04:49:Alyse Brar RN) History of TANNER: No (07/11/2016 04:49:Alyse Brar RN) Comments Obstetrical History: G1 - 11/24/10 G2 - current - failed 1 hr gtt (07/11/2016 04:49:Annel Chambers RN) MEDICAL HISTORY Med Hx Diabetes: No (07/11/2016 04:49:Alyse Brar RN) Med Hx Hypertension: No (07/11/2016 04:49:Alyse Brar RN) Med Hx Heart Disease: No (07/11/2016 04:49:Alyse Brar RN) Med Hx Autoimmune Disorder: No (07/11/2016 04:49:Alyse Brar RN) Med Hx Kidney Disease/UTI: No (07/11/2016 04:49:Alyse Brar RN) Med Hx Neurologic/Epilepsy: No (07/11/2016 04:49:Alyse Brar RN) Med Hx Psychiatric Disorders: No (07/11/2016 04:49:Alyse Brar RN) Med Hx Hepatitis/Liver Disease: No (07/11/2016 04:49:Alyse Brar RN) Med Hx Varicosities/Phlebitis: No (07/11/2016 04:49:Alyse Brar RN) Med Hx Thyroid Dysfunction: No (07/11/2016 04:49:Alyse Brar RN) Med Hx Trauma/Violence: No (07/11/2016 04:49:Alyse Brar RN) Med Hx Blood Transfusion: No (07/11/2016 04:49:Alyse Brar RN) Med Hx Pulmonary (Asthma,TB): No (07/11/2016 04:49:Alyse Brar RN) Med Hx Breast: No (07/11/2016 04:49:Alyse Brar RN) Med Hx PLANT CHANGER Surgery: No (07/11/2016 04:49:Alyse Brar RN) Med Hx Hospitalization/Surgery: Yes (07/11/2016 04:49:Alyse Brar RN) Med Hx Anesthetic Complications: No (07/11/2016 04:49:Alyse Brar RN) Med Hx Abnormal Pap Smear: No (07/11/2016 04:49:Alyse Brar RN) Other Medical Diseases: Yes (07/11/2016 04:49:Alyse Brar RN) Med Hx Significant Family Hx: No (07/11/2016 04:49:Alyse Brar RN) Details of Med/Surg Hx: Hx of Prolactinoma - unable to breastfeed Hospitalized for childbirth (07/11/2016 04:49:Alyse Brar RN) INFECTIOUS HISTORY Inf Hx Gonorrhea: No (07/11/2016 04:49:Alyse Brar RN) Inf Hx Chlamydia: No (07/11/2016 04:49:Alyse Brar RN) Inf Hx Syphilis: No (07/11/2016 04:49:Alyse Brar RN) Inf Hx HIV/AIDS: No (07/11/2016 04:49:Alyse Brar RN) Inf Hx Human Papilloma Virus: No (07/11/2016 04:49:Alyse Brar RN) Inf Hx Pt/Partner Genital Herpes: No (07/11/2016 04:49:Alyse Brar RN) Inf Hx Tuberculosis/Exposure: No (07/11/2016 04:49:Alyse Brar RN) Inf Hx Hepatitis B,C: No (07/11/2016 04:49:Alyse Brar RN) Inf Hx Rash or Viral Illness: No (07/11/2016 04:49:Alyse Brar RN) GENETIC HISTORY Gen Hx Age >=35 at PRIMITIVO: No (07/11/2016 04:49:Alyse Brar RN) Gen Hx Thalassemia: No (07/11/2016 04:49:Alyse Brar RN) Gen Hx Congenital Heart Defect: No (07/11/2016 04:49:Alyse Brar RN) Gen Hx Neural Tube Defect: No (07/11/2016 04:49:Alyse Brar RN) Gen Hx Down's Syndrome: No (07/11/2016 04:49:Alyse Brar RN) Gen Hx Ricardo-Sachs: No (07/11/2016 04:49:Alyse Brar RN) Gen Hx Adia: No (07/11/2016 04:49:Alyse Brar RN) Gen Hx Familial Dysautonomia: No (07/11/2016 04:49:Alyse Brar RN) Gen Hx Sickle Cell Disease/Trait: No (07/11/2016 04:49:Alyse Brar RN) Gen Hx Hemophilia/Blood Disorder: No (07/11/2016 04:49:Alyse Brar RN) Gen Hx Muscular Dystrophy: No (07/11/2016 04:49:Alyse Brar RN) Gen Hx Cystic Fibrosis: No (07/11/2016 04:49:Alyse Brar RN) Gen Hx Huntingtons Chorea: No (07/11/2016 04:49:Alyse Brar RN) Gen Hx Mental Retardation/Autism: No (07/11/2016 04:49:Alyse Brar RN) Gen Hx Tested for Fragile X: No (07/11/2016 04:49:Alyse Brar RN) Gen Hx Other Inher/Chromosomal: No (07/11/2016 04:49:Alyse Brar RN) Gen Hx Maternal Metabolic DO: No (07/11/2016 04:49:Alyse Brar RN) Gen Hx Pt Father or FOB Defect: No (07/11/2016 04:49:Alyse Brar RN) Gen Hx Other Genetic History: No (07/11/2016 04:49:Alyse Brar RN) Gen Hx Drugs/Meds since LMP: No (07/11/2016 04:49:Alyse Brar RN)
--- NOTE | 2016-09-15 18:13 | L&D Current Admission ---
Current Admit Datetime Report Generated by CPN: 09/15/2016 18:00 ADMISSION INFORMATION Current Admit Date/Time: 09/09/2016 05:15 (09/09/2016 05:15:Lorena Ellison RN) Reason for Admission: Onset of Labor; Rupture of Membranes (09/09/2016 05:15:Lorena Ellison RN) Other Reason for Admission: severe N/V/D (07/11/2016 05:00:Alyse Brar RN) Chief Complaint: Contractions; Suspected Rupture of Membranes (09/09/2016 05:15:Cadence Davila RN) Medications During : Vitamin; Rantidine (Zantac) (09/09/2016 05:15:Lorena Ellison RN) EGA per Dates: 40.2 (09/09/2016 05:15:QS system process) Method of Arrival: Wheelchair (09/09/2016 05:15:Lorena Ellison RN) Admitted From: Home (09/09/2016 05:15:Lorena Scot, RN) Reason for Induction: Not Applicable (09/09/2016 05:15:Lorena Ellison RN) Records Available: Yes (09/09/2016 05:15:Lorena Ellison RN) General Admission Information: Reviewed; Updated; Confirmed (09/09/2016 05:15:Lorena Ellison RN) General Admission Reviewed By: Amanda Ellison RN (09/09/2016 05:15:Lorena Ellison RN) BELONGINGS/ADVANCED DIRECTIVES Valuables/Personal Effects: None (07/11/2016 05:00:Alyse Brar RN) Other Belongings: See [facility] belongings form (09/09/2016 05:15:Lorena Ellison RN) Disposition of Belongings: Kept with Patient (07/11/2016 05:00:Alyse Brar RN) Advance Direct for Healthcare: No, but Requests Information (09/09/2016 05:15:Lorena Ellison RN) Durable Power of Slip Maker: No (09/09/2016 05:15:Lorena Ellison RN) Living Will: No (09/09/2016 05:15:Lorena Ellison RN) Organ Donor: Yes (09/09/2016 05:15:Lorena Ellison RN) Pt Rights Information Given: Yes (09/09/2016 05:15:Lorena Ellison RN) Pt Understands Pt Rights: No (09/09/2016 05:15:Lorena Ellison RN) LEARNING ASSESSMENT Knowledge Level: Understands L_D Process (09/09/2016 05:15:Lorena Ellison RN) Barriers to Learning: Emotional State; Pain (09/09/2016 05:15:Lorena Ellison RN) Learning Readiness: Motivated (09/09/2016 05:15:Lorena Ellison RN) Learns Best By: 1 to 1 Instruction (09/09/2016 05:15:Lorena Ellison RN) Learning Needs: Labor and Delivery Process; Pain Management; Symptoms to Report; Treatment Plan; Medication; Equipment (09/09/2016 05:15:Lorena Ellison RN) DOMESTIC VIOLANCE SCREENING Dom Viol Threatened/Hurt: No (07/11/2016 05:00:Alyse Brar RN) Hx of Abuse/Neglect past 2yrs: No (07/11/2016 05:00:Alyse Brar RN) Feel Unsafe Going Home: No (07/11/2016 05:00:Alyse Brar RN) Addt'l Observ Indicating Abuse: No (07/11/2016 05:00:Alyse Brar RN) Reason Unable to Complete Screen: N/A, Screen Completed (07/11/2016 05:00:Alyse Brar RN) Considered Personal Harm/Suicide: No (07/11/2016 05:00:Alyse Brar RN) NUTRITIONAL/FUNCTIONAL SCREENING Problem with Appetite >5 Days: No (09/09/2016 05:15:Lorena Ellison RN) Chew/Swallow Difficulties: No (09/09/2016 05:15:Lorena Ellison RN) Inappropriate Wt Gain/Loss: No (09/09/2016 05:15:Lorena Ellison RN) Presence Skin Breakdown/Ulcer: No (09/09/2016 05:15:Lorena Ellison RN) Special Diet: No (09/09/2016 05:15:Lorena Ellison RN) Pt Requests Grocery Supervisor 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
--- NOTE | 2016-09-15 18:13 | L&D General Admission ---
General Admit Datetime Report Generated by CPN: 09/15/2016 18:00 INFORMATION Patient Age: 30 (07/11/2016 04:45:QS system process) EDC: 09/07/2016 00:00 (07/11/2016 04:49:Mahogany Valerio RN) : 2 (07/11/2016 04:49:Yarely Martinez RN) Para: 1 (09/09/2016 03:20:Freida Lilly RN) Term: 1 (07/11/2016 04:49:Yarely Martinez RN) : 0 (07/11/2016 04:49:Yarely Martinez RN) Spontaneous Abortions: 0 (07/11/2016 04:49:Yarely Martinez RN) Induced Abortions: 0 (07/11/2016 04:49:Yarely Martinez RN) Livin (07/11/2016 04:49:Yarely Martinez RN) Baby, Number in Womb: 1 (09/09/2016 03:20:Freida Lilly RN) CARE Primary Self 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 Fuel 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: [facility] (07/11/2016 04:49:Annel Chambers RN) Month of 1st Visit: 01/2016 (07/11/2016 04:49:Annel Chambers RN) Adequate Care: No (07/11/2016 04:49:Annel Chambers RN) Height (in): 65 (07/11/2016 06:06:QS system process) ALLERGIES Medication Allergy: Yes (07/11/2016 04:49:Yarely Martinez RN) Medication Allergies: morphine/NV/Pruritis (09/09/2016) (09/09/2016 01:12:QS system process) Latex Allergy: No Latex Allergies (07/11/2016 04:49:Yarely Martinez RN) Food Allergies: None (07/11/2016 04:49:Alyse Brar RN) Environmental Allergies: None (07/11/2016 04:49:Alyse Brar RN) COMMUNICATION Primary Language: Lao (07/11/2016 04:49:Annel Chambers RN) Medical Tx Preferred Language: Lao (07/11/2016 04:49:Yarely Martinez RN) Lao Communication Ability: Speaks Lao; Reads Lao (07/11/2016 04:49:Yarely Martinez RN) DEMOGRAPHICS Address: [address] [place] [id number] (07/11/2016 04:46:QS system process) Zipcode: [address] (07/11/2016 04:46:QS system process) Home (07/11/2016 04:45:QS system process) Work (07/11/2016 04:45:QS system process) N: [phone] (07/11/2016 04:45:QS system process) Next of Kin Name: JAMI GO (07/11/2016 04:45:QS system process) Next of Kin (07/11/2016 04:45:QS system process) Next of Kin Relationship: SPO (07/11/2016 04:45:QS system process) Date of : 1985 (07/11/2016 04:45:QS system process) Marital Status: (07/11/2016 04:45:QS system process) Sex: Female (07/11/2016 04:45:QS system process) 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 [phone] (07/11/2016 04:49:Alyse Brar RN) Marijuana: No (07/11/2016 04:49:Alyse Brar RN) Cocaine: No (07/11/2016 04:49:Alyse Brar RN) Other Illicit Drugs: No (07/11/2016 04:49:Alyse Brar RN) VACCINE HISTORY Influenza Vaccine: Yes (07/11/2016 04:49:Annel Chambers RN) Influenza Date: 06/18/2016 (07/11/2016 04:49:Annel Chambers RN) Pneumococcal Vaccine: No (07/11/2016 04:49:Alyse Brar RN) Tetanus Vaccine: Yes (07/11/2016 04:49:Annel Chambers RN) Tetanus Date: 06/18/2016 (07/11/2016 04:49:Annel Chambers RN) Tdap Vaccine: Yes (07/11/2016 04:49:ZOHAIB Rose) Tdap Date: 06/18/2016 (07/11/2016 04:49:ZOHAIB Rose) Hepatitis B Vaccine: Yes (07/11/2016 04:49:Alyse Brar RN) Noodle Catalyst Maker: [facility] (07/11/2016 04:49:Freida Lilly RN) Feeding Preference: Formula (07/11/2016 04:49:Alyse Brar RN) Benefit of Breast Feed Discussed: Yes (07/11/2016 04:49:ZOHAIB Rose) Circumcision: Yes (07/11/2016 04:49:Freida Lilly RN) Classes Attended: Nubia (07/11/2016 04:49:Freida Lilly RN) Tubal Ligation: No (07/11/2016 04:49:Alyse Brar RN) Tubal Authorization Signed: N/A (07/11/2016 04:49:Alyse Brar RN) Consent: N/A (07/11/2016 04:49:Alyse Brar RN) Consent Signed: N/A (07/11/2016 04:49:Alyse Brar RN) Pain Management Plans: Epidural (07/11/2016 04:49:Freida Lilly RN) Plans for Labor and Delivery: Other, Specify (07/11/2016 04:49:Alyse Brar, RN) Other Labor and Delivery Plans: 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 (07/11/2016 04:49:Alyse Brar, HUSSAIN) Support Person: Jami Go (07/11/2016 04:49:Alyse Brar RN) Support Person Relationship: (07/11/2016 04:49:Alyse Brar, RN) Cultural/Spritual Practice: Nubia (07/11/2016 04:49:Alyse Brar, RN) Spir/Cult Dietary Needs: Nubia (07/11/2016 04:49:Freida Lilly RN) LIVING SITUATION/DISCHARGE PLAN Living Arrangements: House (07/11/2016 04:49:Alyse Brar RN) Adequate Access to:: Electric; Heat; Refrigeration; Plumbing/Running water; Phone; Transportation (07/11/2016 04:49:Alyse Maykel, RN) WIC Program: No (07/11/2016 04:49:Alyse Brar RN) Discharge Artificial Candy Maker Person: Jami Go (07/11/2016 04:49:Alyse Brar RN) Person to Help after Discharge: Jami Ragley (07/11/2016 04:49:Alyse Brar RN) Currently Using Commun Resources: No (07/11/2016 04:49:Alyse Brar RN) Outside Agency/Dental Appliance Mechanic: No (07/11/2016 04:49:Alyse Brar RN) Car Seat for Discharge: Yes (07/11/2016 04:49:Alyse Brar RN) Adoption Requested: No (07/11/2016 04:49:Alyse Brar RN) Pt Contact w/ Post : N/A (07/11/2016 04:49:Alyse Brar RN) LABS Blood Type: O Negative (07/11/2016 04:49:Annel Chambers RN) Rho(G) this : Yes (07/11/2016 04:49:Annel Chambers RN) Date Rho(G) Given: 06/18/2016 (07/11/2016 04:49:Annel Chambers RN) Hemoglobin: 7.9 L (Annotations: VERBAL RESULT GIVEN TO Nikki ELDRIDGE RN AT 0825 09/10/16 BY JENARO SCOTT. VERIFIED BY READ BACK.) (09/10/2016 07:27:QS system process) Hematocrit: 25.2 L (09/10/2016 07:27:QS system process) MCV: 79 L (09/10/2016 07:27:QS system process) Group Beta Strep: neg (07/11/2016 04:49:Christiano Soliz RN) Gonorrhea: Negative (07/11/2016 04:49:Annel Chambers RN) Chlamydia: Negative (07/11/2016 04:49:Annel Chambers RN) RPR/VDRL: Nonreactive (07/11/2016 04:49:Annel Chambers RN) HIV Exposure Test: Negative (07/11/2016 04:49:Annel Chambers RN) Hepatitis B: Negative (07/11/2016 04:49:Annel Chambers RN) Rubella: Immune (07/11/2016 04:49:Annel Chambers RN) OB/PREVIOUS HISTORY Previous Procedures: Ultrasound (07/11/2016 04:49:Alyse Brar RN) Current Procedures: Ultrasound (07/11/2016 04:49:Alyse Brar RN) History of Previous : No (07/11/2016 04:49:Alyse Brar RN) History of Gestational Diabetes: No (07/11/2016 04:49:Alyse Brar RN) History of PIH: No (07/11/2016 04:49:Alyse Brar RN) History of Incompetent Cervix: No (07/11/2016 04:49:Alyse Brar RN) History of Placenta Previa/Abrup: No (07/11/2016 04:49:Alyse Brar RN) History of Macrosomia: No (07/11/2016 04:49:Alyse Brar RN) History of IUGR: No (07/11/2016 04:49:Alyse Brar RN) History of Hemorrhage: No (07/11/2016 04:49:Alyse Brar RN) History of Loss/Stillborn: No (07/11/2016 04:49:Alyse Brar RN) History of : No (07/11/2016 04:49:Alyse Brar RN) History of D (Rh) Sensitization: No (07/11/2016 04:49:Alyse Brar RN) History Recurrent Loss/Stillborn: No (07/11/2016 04:49:Alyse Brar RN) History Depression/PP Depression: No (07/11/2016 04:49:Alyse Brar RN) History of Uterine Anomaly/TANNER: No (07/11/2016 04:49:Alyse Brar RN) History of Infertility: No (07/11/2016 04:49:Alyse Brar RN) History of ART Treatment: No (07/11/2016 04:49:Alyse Brar RN) History of TANNER: No (07/11/2016 04:49:Alyse Brar RN) Comments Obstetrical History: G1 - 11/24/10 G2 - current - failed 1 hr gtt (07/11/2016 04:49:Annel Chambers RN) MEDICAL HISTORY Med Hx Diabetes: No (07/11/2016 04:49:Alyse Brar RN) Med Hx Hypertension: No (07/11/2016 04:49:Alyse Brar RN) Med Hx Heart Disease: No (07/11/2016 04:49:Alyse Brar RN) Med Hx Autoimmune Disorder: No (07/11/2016 04:49:Alyse Brar RN) Med Hx Kidney Disease/UTI: No (07/11/2016 04:49:Alyse Brar RN) Med Hx Neurologic/Epilepsy: No (07/11/2016 04:49:Alyse Brar RN) Med Hx Psychiatric Disorders: No (07/11/2016 04:49:Alyse Brar RN) Med Hx Hepatitis/Liver Disease: No (07/11/2016 04:49:Alyse Brar RN) Med Hx Varicosities/Phlebitis: No (07/11/2016 04:49:Alyse Brar RN) Med Hx Thyroid Dysfunction: No (07/11/2016 04:49:Alyse Brar RN) Med Hx Trauma/Violence: No (07/11/2016 04:49:Alyse Brar RN) Med Hx Blood Transfusion: No (07/11/2016 04:49:Alyse Brar RN) Med Hx Pulmonary (Asthma,TB): No (07/11/2016 04:49:Alyse Brar RN) Med Hx Breast: No (07/11/2016 04:49:Alyse Brar RN) Med Hx PHOTONICS ENGINEERING TECHNOLOGIST Surgery: No (07/11/2016 04:49:Alyse Brar RN) Med Hx Hospitalization/Surgery: Yes (07/11/2016 04:49:Alyse Brar RN) Med Hx Anesthetic Complications: No (07/11/2016 04:49:Alyse Brar RN) Med Hx Abnormal Pap Smear: No (07/11/2016 04:49:Alyse Brar RN) Other Medical Diseases: Yes (07/11/2016 04:49:Alyse Brar RN) Med Hx Significant Family Hx: No (07/11/2016 04:49:Alyse Brar RN) Details of Med/Surg Hx: Hx of Prolactinoma - unable to breastfeed Hospitalized for childbirth (07/11/2016 04:49:Alyse Brar RN) INFECTIOUS HISTORY Inf Hx Gonorrhea: No (07/11/2016 04:49:Alyse Brar RN) Inf Hx Chlamydia: No (07/11/2016 04:49:Alyse Brar RN) Inf Hx Syphilis: No (07/11/2016 04:49:Alyse Brar RN) Inf Hx HIV/AIDS: No (07/11/2016 04:49:Alyse Brar RN) Inf Hx Human Papilloma Virus: No (07/11/2016 04:49:Alyse Brar RN) Inf Hx Pt/Partner Genital Herpes: No (07/11/2016 04:49:Alyse Brar RN) Inf Hx Tuberculosis/Exposure: No (07/11/2016 04:49:Alyse Brar RN) Inf Hx Hepatitis B,C: No (07/11/2016 04:49:Alyse Brar RN) Inf Hx Rash or Viral Illness: No (07/11/2016 04:49:Alyse Brar RN) GENETIC HISTORY Gen Hx Age >=35 at PRIMITIVO: No (07/11/2016 04:49:Alyse Brar RN) Gen Hx Thalassemia: No (07/11/2016 04:49:Alyse Brar RN) Gen Hx Congenital Heart Defect: No (07/11/2016 04:49:Alyse Brar RN) Gen Hx Neural Tube Defect: No (07/11/2016 04:49:Alyse Brar RN) Gen Hx Down's Syndrome: No (07/11/2016 04:49:Alyse Brar RN) Gen Hx Ricardo-Sachs: No (07/11/2016 04:49:Alyse Brar RN) Gen Hx Adia: No (07/11/2016 04:49:Alyse Brar RN) Gen Hx Familial Dysautonomia: No (07/11/2016 04:49:Alyse Brar RN) Gen Hx Sickle Cell Disease/Trait: No (07/11/2016 04:49:Alyse Brar RN) Gen Hx Hemophilia/Blood Disorder: No (07/11/2016 04:49:Alyse Brar RN) Gen Hx Muscular Dystrophy: No (07/11/2016 04:49:Alyse Brar RN) Gen Hx Cystic Fibrosis: No (07/11/2016 04:49:Alyse Brar RN) Gen Hx Huntingtons Chorea: No (07/11/2016 04:49:Alyse Brar RN) Gen Hx Mental Retardation/Autism: No (07/11/2016 04:49:Alyse Brar RN) Gen Hx Tested for Fragile X: No (07/11/2016 04:49:Alyse Brar RN) Gen Hx Other Inher/Chromosomal: No (07/11/2016 04:49:Alyse Brar RN) Gen Hx Maternal Metabolic DO: No (07/11/2016 04:49:Alyse Brar RN) Gen Hx Pt Father or FOB Defect: No (07/11/2016 04:49:Alyse Brar RN) Gen Hx Other Genetic History: No (07/11/2016 04:49:Alyse Brar RN) Gen Hx Drugs/Meds since LMP: No (07/11/2016 04:49:Alyse Brar RN)
--- NOTE | 2016-09-16 06:13 | L&D Current Admission ---
Current Admit Datetime Report Generated by CPN: 09/16/2016 06:00 ADMISSION INFORMATION Current Admit Date/Time: 09/09/2016 05:15 (09/09/2016 05:15:Lorena Ellison RN) Reason for Admission: Onset of Labor; Rupture of Membranes (09/09/2016 05:15:Lorena Ellison RN) Other Reason for Admission: severe N/V/D (07/11/2016 05:00:Alyse Brar RN) Chief Complaint: Contractions; Suspected Rupture of Membranes (09/09/2016 05:15:Cadence Davila RN) Medications During : Vitamin; Rantidine (Zantac) (09/09/2016 05:15:Lorena Ellison RN) EGA per Dates: 40.2 (09/09/2016 05:15:QS system process) Method of Arrival: Wheelchair (09/09/2016 05:15:Lorena Ellison RN) Admitted From: Home (09/09/2016 05:15:Lorena Scot, RN) Reason for Induction: Not Applicable (09/09/2016 05:15:Lorena Ellison RN) Records Available: Yes (09/09/2016 05:15:Lorena Ellison RN) General Admission Information: Reviewed; Updated; Confirmed (09/09/2016 05:15:Lorena Ellison RN) General Admission Reviewed By: Amanda Ellison RN (09/09/2016 05:15:Lorena Ellison RN) BELONGINGS/ADVANCED DIRECTIVES Valuables/Personal Effects: None (07/11/2016 05:00:Alyse Brar RN) Other Belongings: See [facility] belongings form (09/09/2016 05:15:Lorena Ellison RN) Disposition of Belongings: Kept with Patient (07/11/2016 05:00:Alyse Brar RN) Advance Direct for Healthcare: No, but Requests Information (09/09/2016 05:15:Lorena Ellison RN) Durable Power of Watch Supervisor: No (09/09/2016 05:15:Lorena Ellison RN) Living Will: No (09/09/2016 05:15:Lorena Ellison RN) Organ Donor: Yes (09/09/2016 05:15:Lorena Ellison RN) Pt Rights Information Given: Yes (09/09/2016 05:15:Lorena Ellison RN) Pt Understands Pt Rights: No (09/09/2016 05:15:Lorena Ellison RN) LEARNING ASSESSMENT Knowledge Level: Understands L_D Process (09/09/2016 05:15:Lorena Ellison RN) Barriers to Learning: Emotional State; Pain (09/09/2016 05:15:Lorena Ellison RN) Learning Readiness: Motivated (09/09/2016 05:15:Lorena Ellison RN) Learns Best By: 1 to 1 Instruction (09/09/2016 05:15:Lorena Ellison RN) Learning Needs: Labor and Delivery Process; Pain Management; Symptoms to Report; Treatment Plan; Medication; Equipment (09/09/2016 05:15:Lorena Ellison RN) DOMESTIC VIOLANCE SCREENING Dom Viol Threatened/Hurt: No (07/11/2016 05:00:Alyse Brar RN) Hx of Abuse/Neglect past 2yrs: No (07/11/2016 05:00:Alyse Brar RN) Feel Unsafe Going Home: No (07/11/2016 05:00:Alyse Brar RN) Addt'l Observ Indicating Abuse: No (07/11/2016 05:00:Alyse Brar RN) Reason Unable to Complete Screen: N/A, Screen Completed (07/11/2016 05:00:Alyse Brar RN) Considered Personal Harm/Suicide: No (07/11/2016 05:00:Alyse Brar RN) NUTRITIONAL/FUNCTIONAL SCREENING Problem with Appetite >5 Days: No (09/09/2016 05:15:Lorean Ellison RN) Chew/Swallow Difficulties: No (09/09/2016 05:15:Lorena Ellison RN) Inappropriate Wt Gain/Loss: No (09/09/2016 05:15:Lorena Ellison RN) Presence Skin Breakdown/Ulcer: No (09/09/2016 05:15:Lorena Ellison RN) Special Diet: No (09/09/2016 05:15:Lorena Ellison RN) Pt Requests Bi Analyst 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
--- NOTE | 2016-09-16 06:13 | L&D General Admission ---
General Admit Datetime Report Generated by CPN: 09/16/2016 06:00 INFORMATION Patient Age: 30 (07/11/2016 04:45:QS system process) EDC: 09/07/2016 00:00 (07/11/2016 04:49:Mahogany Valerio RN) : 2 (07/11/2016 04:49:Yarely Martinez RN) Para: 1 (09/09/2016 03:20:Freida Lilly RN) Term: 1 (07/11/2016 04:49:Yarely Martinez RN) : 0 (07/11/2016 04:49:Yarely Martinez RN) Spontaneous Abortions: 0 (07/11/2016 04:49:Yarely Martinez RN) Induced Abortions: 0 (07/11/2016 04:49:Yarely Martinez RN) Livin (07/11/2016 04:49:Yarely Martinez RN) Baby, Number in Womb: 1 (09/09/2016 03:20:Freida Lilly RN) CARE Primary Helper Animal Laboratory: [facility] (07/11/2016 04:49:Annel Chambers RN) Month of 1st Visit: 01/2016 (07/11/2016 04:49:Annel Chambers RN) Adequate Care: No (07/11/2016 04:49:Annel Chambers RN) Height (in): 65 (07/11/2016 06:06:QS system process) ALLERGIES Medication Allergy: Yes (07/11/2016 04:49:Yarely Martinez RN) Medication Allergies: morphine/MA/Pruritis (09/09/2016) (09/09/2016 01:12:QS system process) Latex Allergy: No Latex Allergies (07/11/2016 04:49:Yarely Martinez RN) Food Allergies: None (07/11/2016 04:49:Alyse Brar RN) Environmental Allergies: None (07/11/2016 04:49:Alyse Brar RN) COMMUNICATION Primary Language: Comoran (07/11/2016 04:49:Annel Chambers RN) Medical Tx Preferred Language: Comoran (07/11/2016 04:49:Yarely Martinez RN) Com[place]an Communication Ability: Speaks Comoran; Reads Comoran (07/11/2016 04:49:Yarely Martinez RN) DEMOGRAPHICS Address: [address] [place] [id number] (07/11/2016 04:46:QS system process) Zipcode: [id number] (07/11/2016 04:46:QS system process) Home (07/11/2016 04:45:QS system process) Work (07/11/2016 04:45:QS system process) N: [phone] (07/11/2016 04:45:QS system process) Next of Kin Name: JAMI GO (07/11/2016 04:45:QS system process) Next of Kin (07/11/2016 04:45:QS system process) Next of Kin Relationship: SPO (07/11/2016 04:45:QS system process) Date of : 1985 (07/11/2016 04:45:QS system process) Marital Status: (07/11/2016 04:45:QS system process) Sex: Female (07/11/2016 04:45:QS system process) 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 [id number] (07/11/2016 04:49:Alyse Brar RN) Marijuana: No (07/11/2016 04:49:Alyse Brar RN) Cocaine: No (07/11/2016 04:49:Alyse Brar RN) Other Illicit Drugs: No (07/11/2016 04:49:Alyse Brar RN) VACCINE HISTORY Influenza Vaccine: Yes (07/11/2016 04:49:Annel Chambers RN) Influenza Date: 06/18/2016 (07/11/2016 04:49:Annel Chambers RN) Pneumococcal Vaccine: No (07/11/2016 04:49:Alyse Brar RN) Tetanus Vaccine: Yes (07/11/2016 04:49:Annel Chambers RN) Tetanus Date: 06/18/2016 (07/11/2016 04:49:Annel Chambers RN) Tdap Vaccine: Yes (07/11/2016 04:49:ZOHAIB Rose) Tdap Date: 06/18/2016 (07/11/2016 04:49:ZOHAIB Rose) Hepatitis B Vaccine: Yes (07/11/2016 04:49:Alyse Brar RN) Boom Pump Operator: [facility] (07/11/2016 04:49:Freida Lilly RN) Feeding Preference: Formula (07/11/2016 04:49:Alyse Brar RN) Benefit of Breast Feed Discussed: Yes (07/11/2016 04:49:ZOHAIB Rose) Circumcision: Yes (07/11/2016 04:49:Freida Lilly RN) Classes Attended: Nubia (07/11/2016 04:49:Freida Lilly RN) Tubal Ligation: No (07/11/2016 04:49:Alyse Brar RN) Tubal Authorization Signed: N/A (07/11/2016 04:49:Alyse Brar RN) Consent: N/A (07/11/2016 04:49:Alyse Brar RN) Consent Signed: N/A (07/11/2016 04:49:Alyse Brar RN) Pain Management Plans: Epidural (07/11/2016 04:49:Freida Lilly RN) Plans for Labor and Delivery: Other, Specify (07/11/2016 04:49:Alyse Brar, RN) Other Labor and Delivery Plans: 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 (07/11/2016 04:49:Alyse Brar, HUSSAIN) Support Person: Jami Go (07/11/2016 04:49:Alyse Brar RN) Support Person Relationship: (07/11/2016 04:49:Alyse Brar, RN) Cultural/Spritual Practice: Nubia (07/11/2016 04:49:Alyse Brar, RN) Spir/Cult Dietary Needs: Nubia (07/11/2016 04:49:Freida Lilly RN) LIVING SITUATION/DISCHARGE PLAN Living Arrangements: House (07/11/2016 04:49:Alyse Brar RN) Adequate Access to:: Electric; Heat; Refrigeration; Plumbing/Running water; Phone; Transportation (07/11/2016 04:49:Alyse Maykel, RN) WIC Program: No (07/11/2016 04:49:Alyse Brar RN) Discharge Tomb Maker Helper Person: Jami Go (07/11/2016 04:49:Alyse Brar RN) Person to Help after Discharge: Jami [place] (07/11/2016 04:49:Alyse Brar RN) Currently Using Commun Resources: No (07/11/2016 04:49:Alyse Brar RN) Outside Agency/Pit Shovel Operator: No (07/11/2016 04:49:Alyse Brar RN) Car Seat for Discharge: Yes (07/11/2016 04:49:Alyse Brar RN) Adoption Requested: No (07/11/2016 04:49:Alyse Brar RN) Pt Contact w/ Post : N/A (07/11/2016 04:49:Alyse Brar RN) LABS Blood Type: O Negative (07/11/2016 04:49:Annel Chambers RN) Rho(G) this : Yes (07/11/2016 04:49:Annel Chambers RN) Date Rho(G) Given: 06/18/2016 (07/11/2016 04:49:Annel Chambers RN) Hemoglobin: 7.9 L (Annotations: VERBAL RESULT GIVEN TO Nikki ELDRIDGE RN AT 0825 09/10/16 BY JENARO SCOTT. VERIFIED BY READ BACK.) (09/10/2016 07:27:QS system process) Hematocrit: 25.2 L (09/10/2016 07:27:QS system process) MCV: 79 L (09/10/2016 07:27:QS system process) Group Beta Strep: neg (07/11/2016 04:49:Christiano Soliz RN) Gonorrhea: Negative (07/11/2016 04:49:Annel Chambers RN) Chlamydia: Negative (07/11/2016 04:49:Annel Chambers RN) RPR/VDRL: Nonreactive (07/11/2016 04:49:Annel Chambers RN) HIV Exposure Test: Negative (07/11/2016 04:49:Annel Chambers RN) Hepatitis B: Negative (07/11/2016 04:49:Annel Chambers RN) Rubella: Immune (07/11/2016 04:49:Annel Chambers RN) OB/PREVIOUS HISTORY Previous Procedures: Ultrasound (07/11/2016 04:49:Alyse Brar RN) Current Procedures: Ultrasound (07/11/2016 04:49:Alyse Brar RN) History of Previous : No (07/11/2016 04:49:Alyse Brar RN) History of Gestational Diabetes: No (07/11/2016 04:49:Aylse Brar RN) History of PIH: No (07/11/2016 04:49:Alyse Brar RN) History of Incompetent Cervix: No (07/11/2016 04:49:Alyse Brar RN) History of Placenta Previa/Abrup: No (07/11/2016 04:49:Alyse Brar RN) History of Macrosomia: No (07/11/2016 04:49:Alyse Brar RN) History of IUGR: No (07/11/2016 04:49:Alyse Brar RN) History of Hemorrhage: No (07/11/2016 04:49:Alyse Brar RN) History of Loss/Stillborn: No (07/11/2016 04:49:Alyse Brar RN) History of : No (07/11/2016 04:49:Alyse Brar RN) History of D (Rh) Sensitization: No (07/11/2016 04:49:Alyse Brar RN) History Recurrent Loss/Stillborn: No (07/11/2016 04:49:Alyse Brar RN) History Depression/PP Depression: No (07/11/2016 04:49:Alyse Brar RN) History of Uterine Anomaly/TANNER: No (07/11/2016 04:49:Alyse Brar RN) History of Infertility: No (07/11/2016 04:49:Alyse Brar RN) History of ART Treatment: No (07/11/2016 04:49:Alyse Brar RN) History of TANNER: No (07/11/2016 04:49:Alyse Brar RN) Comments Obstetrical History: G1 - 11/24/10 G2 - current - failed 1 hr gtt (07/11/2016 04:49:Annel Chambers RN) MEDICAL HISTORY Med Hx Diabetes: No (07/11/2016 04:49:Alyse Brar RN) Med Hx Hypertension: No (07/11/2016 04:49:Alyse Brar RN) Med Hx Heart Disease: No (07/11/2016 04:49:Alyse Brar RN) Med Hx Autoimmune Disorder: No (07/11/2016 04:49:Alyse Brar RN) Med Hx Kidney Disease/UTI: No (07/11/2016 04:49:Alyse Brar RN) Med Hx Neurologic/Epilepsy: No (07/11/2016 04:49:Alyse Brar RN) Med Hx Psychiatric Disorders: No (07/11/2016 04:49:Alyse Brar RN) Med Hx Hepatitis/Liver Disease: No (07/11/2016 04:49:Alyse Brar RN) Med Hx Varicosities/Phlebitis: No (07/11/2016 04:49:Alyse Brar RN) Med Hx Thyroid Dysfunction: No (07/11/2016 04:49:Alyse Brar RN) Med Hx Trauma/Violence: No (07/11/2016 04:49:Alyse Brar RN) Med Hx Blood Transfusion: No (07/11/2016 04:49:Alyse Brar RN) Med Hx Pulmonary (Asthma,TB): No (07/11/2016 04:49:Alyse Brar RN) Med Hx Breast: No (07/11/2016 04:49:Alyse Brar RN) Med Hx DRAWSTRING KNOTTER Surgery: No (07/11/2016 04:49:Alyse Brar RN) Med Hx Hospitalization/Surgery: Yes (07/11/2016 04:49:Alyse Brar RN) Med Hx Anesthetic Complications: No (07/11/2016 04:49:Alyse Brar RN) Med Hx Abnormal Pap Smear: No (07/11/2016 04:49:Alyse Brar RN) Other Medical Diseases: Yes (07/11/2016 04:49:Alyse Brar RN) Med Hx Significant Family Hx: No (07/11/2016 04:49:Alyse Brar RN) Details of Med/Surg Hx: Hx of Prolactinoma - unable to breastfeed Hospitalized for childbirth (07/11/2016 04:49:Alyse Brar RN) INFECTIOUS HISTORY Inf Hx Gonorrhea: No (07/11/2016 04:49:Alyse Brar RN) Inf Hx Chlamydia: No (07/11/2016 04:49:Alyse Brar RN) Inf Hx Syphilis: No (07/11/2016 04:49:Alyse Brar RN) Inf Hx HIV/AIDS: No (07/11/2016 04:49:Alyse Brar RN) Inf Hx Human Papilloma Virus: No (07/11/2016 04:49:Alyse Brar RN) Inf Hx Pt/Partner Genital Herpes: No (07/11/2016 04:49:Alyse Brar RN) Inf Hx Tuberculosis/Exposure: No (07/11/2016 04:49:Alyse Brar RN) Inf Hx Hepatitis B,C: No (07/11/2016 04:49:Alyse Brar RN) Inf Hx Rash or Viral Illness: No (07/11/2016 04:49:Alyse Brar RN) GENETIC HISTORY Gen Hx Age >=35 at PRIMITIVO: No (07/11/2016 04:49:Alyse Brar RN) Gen Hx Thalassemia: No (07/11/2016 04:49:Alyse Brar RN) Gen Hx Congenital Heart Defect: No (07/11/2016 04:49:Alyse Brar RN) Gen Hx Neural Tube Defect: No (07/11/2016 04:49:Alyse Brar RN) Gen Hx Down's Syndrome: No (07/11/2016 04:49:Alyse Brar RN) Gen Hx Ricardo-Sachs: No (07/11/2016 04:49:Alyse Brar RN) Gen Hx Adia: No (07/11/2016 04:49:Alyse Brar RN) Gen Hx Familial Dysautonomia: No (07/11/2016 04:49:Alyse Brar RN) Gen Hx Sickle Cell Disease/Trait: No (07/11/2016 04:49:Alyse Brar RN) Gen Hx Hemophilia/Blood Disorder: No (07/11/2016 04:49:Alyse Brar RN) Gen Hx Muscular Dystrophy: No (07/11/2016 04:49:Alyse Brar RN) Gen Hx Cystic Fibrosis: No (07/11/2016 04:49:Alyse Brar RN) Gen Hx Huntingtons Chorea: No (07/11/2016 04:49:Alyse Brar RN) Gen Hx Mental Retardation/Autism: No (07/11/2016 04:49:Alyse Brar RN) Gen Hx Tested for Fragile X: No (07/11/2016 04:49:Alyse Brar RN) Gen Hx Other Inher/Chromosomal: No (07/11/2016 04:49:Alyse Brar RN) Gen Hx Maternal Metabolic DO: No (07/11/2016 04:49:Alyse Brar RN) Gen Hx Pt Father or FOB Defect: No (07/11/2016 04:49:Alyse Brar RN) Gen Hx Other Genetic History: No (07/11/2016 04:49:Alyse Brar RN) Gen Hx Drugs/Meds since LMP: No (07/11/2016 04:49:Alyse Brar RN)
== END 2016-09-11 13:59 | disposition home or self-care (01) | DRG 775 ==
LOC: LC 04:55 → LR 05:10 → 2S 11:24
PROVIDERS: ADMIT Obstetrics & Gynecology; ATTEND Obstetrics & Gynecology
PROC: 10E0XZZ Delivery of Products of Conception, External Approach (ICD-10-PCS; principal; 2016-09-09)
PROC: 4A1HXCZ Monitoring of Products of Conception, Cardiac Rate, External Approach (ICD-10-PCS; 2016-09-09)
DX: O99.02 Anemia complicating childbirth (principal); D64.9 Anemia, unspecified; Z88.6 Allergy status to analgesic agent; Z3A.40 40 weeks gestation of pregnancy; Z37.0 Single live birth
CPT/HCPCS: 36415; 85025; 85027; 86592; 86850; 86900; 86901; 94760; J2590; J3490